=== PATIENT | male | born 1935 | race Caucasian/White ===

== ENCOUNTER → 2016-06-03 | Outpatient (CLI) | payer OTHER ==
--- NOTE | 2016-06-03 18:13 | DX ---
Chest, PA and Lateral History: Cough x3 weeks, evaluate for pneumonia COMPARISON: October 16, 2015 Findings: There is no focal infiltrate or consolidation. Chronic cardiomegaly with pulmonary venous h ypertension and curly B lines are stable. There is no alveolar pulmonary edema or pleural effusion fo rmation. Median sternotomy wires and CABG clips along with thoracolumbar fusion hardware are again pr esent and unchanged. The uppermost first and third median sternotomy wires are fractured. There is co ngenital fusion of the 2 vertebral bodies directly above the surgical fusion. There is stable degener ative change in the midthoracic spine above both these regions. There is chronic degenerative change of both shoulders, consistent with full-thickness rotator cuff tears. Impression: 1. No pneumonia. 2. Stable borderline compensated CHF.
== END ==
LOC: FIMAGING 15:25
PROVIDERS: ATTEND Internal Medicine Interventional Cardiology
DX: I50.9 Heart failure, unspecified (principal); I25.10 Atherosclerotic heart disease of native coronary artery without angina pectoris; J44.9 Chronic obstructive pulmonary disease, unspecified; E78.5 Hyperlipidemia, unspecified

== ENCOUNTER 2016-06-24 03:57 | Inpatient (IN) | payer OTHER ==
[2016-06-24] MEDS ORDERED: NS 500 ML IV ONE (04:03)
--- NOTE | 2016-06-24 04:10 | EDPHY ---
H & P Time Seen by Provider: 06/24/16 04:03 HPI/ROS: HPI Fatigue, dyspnea, near syncope. 81-year-old male by ambulance from home. Patient reports that he got up to go to the bathroom. Reports the bathroom is about 20-25 feet away from his bedroom. Reports he was walking down the [place] he felt very short of breath, weak and lightheaded. He did not lose consciousness. He did not go to the ground. He states that he feels better now. No other associated signs or symptoms. ROS: Constitutional: No fever, no chills. As above. Eyes: No discharge. No changes in vision. ENT: No sore throat. No nasal congestion or rhinorrhea. Respiratory: No cough. As above. Cardiac: No chest pain, no palpitations. Gastrointestinal: No abdominal pain, no vomiting, no diarrhea. Genitourinary: No hematuria. No dysuria or increased frequency with urination. Musculoskeletal: No back pain. No neck pain. No myalgias or arthralgias. Skin: No rashes. Neurological: No headache. No focal weakness or altered sensation. Past medical history: Triple bypass 3 years ago, he takes an aspirin daily. He denies a history of atrial fibrillation. Weather Observer is Dr. Rod Kemp , multiple lumbar back surgeries with lower extremity L5 radiculopathy, hypothyroidism, hyperlipidemia, questionable history of heart failure. He has recently been treated for an ongoing sinus infection. He is currently on Medrol for this as well as nasal steroids and Biaxin. He reports this is his 3rd round of Medrol for his sinus infection. He saw an ENT physician, Dr. Castellano within the last few days for his sinus infection. Primary care physician is Dr. Timmons. Social history: Lives with his . Ambulates with a cane. Physical Exam: General Appearance: Alert, no distress. This patient is responding to questions appropriately and in full sentences. This patient appears well- hydrated and well-nourished. Eyes: Pupils equal and round no pallor or injection. No lid edema, erythema or injection. Respiratory: There are no retractions, lungs are clear to auscultation with good air movement bilaterally. Midline sternotomy scar. Cardiovascular: Irregular, irregular tachycardia. No murmur. Gastrointestinal: Moderately obese habitus. Abdomen is soft and nontender, no masses, bowel sounds normal. No focal tenderness at McBurney's point. No Quezada sign. Neurological: Motor sensory function is grossly intact and at baseline. Cranial nerves are normal. Skin: Warm and dry, no rashes. Musculoskeletal: Neck is supple and nontender. No JVD Extremities are symmetrical. Brace on left ankle and foot for slap foot. Psychiatric: No agitation. No depression. Database: EKG: EKG time is 4:15 a.m.; EKG shows a underlying incomplete left bundle branch block with atrial fibrillation ventricular rate of 99. Appropriate discordance. The [place], QRS, QT intervals are within normal limits. Probable left ventricular hypertrophy. There are no ST-T wave changes indicative of ischemic or injury pattern. No evidence of right heart strain. This EKG was compared to a prior EKG from 07/07/2014. Same features of incomplete left bundle branch block but sinus rhythm. Interpreted by me. EKG time 5:21 a.m.; no change from prior. Imaging: Chest x-ray AP portable; sternotomy wires, spinal hardware, probable cardiomegaly, probable CHF versus chronic diffuse airway disease. Interpreted by me. Interpreted by me. CT angiogram of the chest; no pulmonary embolism. Mild underlying congestive heart failure. The great vessels are unremarkable. No other acute pathology. Results were discussed with staff radiologist Dr. Chico Son. Procedures: Emergency department course: IV placed per EMS. He was placed on a cardiac exercise specialist during my evaluation. He is currently on nasal cannula oxygen at 2 L. pulse oximetry on 2 L of nasal cannula oxygen is 97% He will be given 500 cc of IV normal saline. EKG and chest x-ray performed. 4:20 a.m., vital signs reviewed, monitor currently shows atrial fibrillation with ventricular rate of 98. Blood pressure 120/84. Pulse oximetry 97% on 2 L of nasal cannula oxygen. 4:50 a.m., patient re-evaluated. shelter monitor shows an irregular rhythm ventricular rate in the upper 80s to low 90s. Blood pressure 120/78. D-dimer and troponin elevated. Potassium elevated at 5.5. Patient has had 500 cc of IV normal saline. Patient will receive 40 mg of IV Lasix for mild hyperkalemia and CHF. Patient given 324 mg of chewed aspirin. No chest pain. IV fluids will be continued at 150 cc/hour while in the emergency department. Patient consented for CT angiogram of chest to evaluate for pulmonary embolism. Medical records reviewed. Outpatient troponin elevated at 0.120 on 06/03/2015. BMP has been gradually going up over the last several months. 5:10 a.m., patient has returned from CT. Resting comfortably at this time. Blood pressure currently 128/86. Atrial fibrillation still present on the monitor ventricular rate average of 90. Patient and his have no recollection of elevated troponin on June 03. 5:50 a.m., spoke with hospitalist, Dr. Ly. Case discussed with her in detail. She accepts the patient for admission. 6:05 a.m., results of CT scan and other diagnostic studies discussed with the patient and his . Dr. Malachi disla, admitting hospitalist, at the bedside. Results of CT scan and other diagnostic studies reviewed with her and the patient. Patient admitted to the hospitalist service in stable and improved condition. Differential Diagnosis: The differential diagnosis on this patient includes but is not limited to acute coronary syndrome, pulmonary embolism, arrhythmia, congestive heart failure, new onset atrial fibrillation. This represents a partial list of diagnoses considered. These considerations are based on history, physical exam, past history, reassessment and diagnostic testing. Smoking Status: Former smoker Constitutional: Initial Vital Signs Temperature (C) 36.2 C 06/24/16 04:05 Heart Rate 126 H 06/24/16 04:05 Respiratory Rate 22 H 06/24/16 04:05 Blood Pressure 137/102 H 06/24/16 04:05 O2 Sat (%) 92 06/24/16 04:05 O2 Delivery Mode Nasal Cannula O2 (L/minute) 2 Allergies/Adverse Reactions: No Known Allergies Allergy (Unverified 12/28/12 14:09) Home Medications: Medication Instructions Recorded Fluticasone Nasal [Flonase Nasal 2 sprays NASAL HS 12/28/12 [place]] Herbals/Supplements -Info Only 1 each PO AD 12/28/12 Thyroid [[place] Thyroid 60 MG (*)] 120 mg PO DAILY10 12/28/12 Ambien 06/24/16 Androderm 4 mg patch 06/24/16 Aspirin 81mg (*) 06/24/16 Atrovent Hfa (*) 06/24/16 Augmentin 875 MG TAB (*) 06/24/16 Gabapentin 06/24/16 Iodine 06/24/16 Nasogel Saline Nose Gel 06/24/16 Synthroid 50 mcg (*) 06/24/16 Ventolin Hfa Inhaler 06/24/16 Medical Decision Making - Data Points Laboratory Results: Laboratory Results 06/24/16 04:04 06/24/16 04:04 06/24/16 04:04 WBC 11.30 H 10^3/uL (3.80-9.50) RBC 4.78 10^6/uL (4.40-6.38) Hgb 16.7 g/dL (13.7-17.5) Hct 48.4 % (40.0-51.0) MCV 101.3 H fL (81.5-99.8) MCH 34.9 H pg (27.9-34.1) MCHC 34.5 g/dL (32.4-36.7) RDW 14.5 % (11.5-15.2) Plt Count 171 10^3/uL (150-400) MPV 10.8 fL (8.7-11.7) Neut % (Auto) 86.1 H % (39.3-74.2) Lymph % (Auto) 8.4 L % (15.0-45.0) [place] % (Auto) 4.3 L % (4.5-13.0) Eos % (Auto) 0.0 L % (0.6-7.6) Baso % (Auto) 0.2 L % (0.3-1.7) Nucleat RBC Rel Count 0.0 % (0.0-0.2) Absolute Neuts (auto) 9.73 H 10^3/uL (1.70-6.50) Absolute Lymphs (auto) 0.95 L 10^3/uL (1.00-3.00) Absolute Monos (auto) 0.49 10^3/uL (0.30-0.80) Absolute Eos (auto) 0.00 L 10^3/uL (0.03-0.40) Absolute Basos (auto) 0.02 10^3/uL (0.02-0.10) Absolute Nucleated RBC 0.00 10^3/uL (0-0.01) Immature Gran % 1.0 % (0.0-1.1) Immature Gran # 0.11 H 10^3/uL (0.00-0.10) PT 15.1 H SEC (12.0-15.0) INR 1.19 H (0.83-1.16) APTT 29.4 SEC (23.0-38.0) D-Dimer 1.63 H ug/mLFEU (0.00-0.50) Sodium 138 mEq/L (134-144) Potassium 5.5 H mEq/L (3.5-5.2) Chloride 105 mEq/L (97-110) Carbon Dioxide 20 L mEq/l (22-31) Anion Gap 13 mEq/L (8-16) BUN 41 H mg/dL (7-23) Creatinine 1.3 mg/dL (0.7-1.3) Estimated GFR 53 Glucose 164 H mg/dL (70-100) Calcium 9.5 mg/dL (8.5-10.4) Troponin I 0.132 H ng/mL (0-0.034) NT-Pro-B Natriuret Pep 8060 H pg/mL (0-450) TSH 3.040 uIU/mL (0.465-4.680) Free T4 1.02 ng/dL (0.59-2.19) Free T3 3.15 pg/mL (2.77-5.27) Medications Given: Discontinued Medications Aspirin (Aspirin) 324 mg PO EDNOW ONE Stop: 06/24/16 04:51 Last Admin: 06/24/16 05:16 Dose: 324 mg Furosemide (Lasix Injection) 40 mg IVP EDNOW ONE Stop: 06/24/16 04:51 Last Admin: 06/24/16 05:15 Dose: 40 mg Sodium Chloride (Ns) 500 mls @ 0 mls/hr IV ONCE ONE PRN Reason: As Directed Stop: 06/24/16 04:04 Last Admin: 06/24/16 04:37 Dose: 500 mls Departure - Departure Disposition: [facility] Inpatient Acute Clinical Impression: Atrial fibrillation with RVR, Near syncope, Hyperkalemia, Dyspnea, Congestive heart failure, New onset atrial fibrillation Condition: Fair
[2016-06-24 04:16] LABS: ABSOLUTE IMMATURE GRANULOCYTES 0.11 10^3/uL (0.00-0.10); ADD DIFF? NO; ADD MORPH? NO; ADD SCAN? NO; ATYPICAL LYMPHOCYTE FLAG 0 (0-99); FRAGMENT RBC FLAG 0 (0-99); HEMATOCRIT 48.4 % (40.0-51.0); HEMOGLOBIN 16.7 g/dL (13.7-17.5); LEFT SHIFT FLG 0 (0-99); LIPEMIA HEMOLYSIS FLAG 90 (0-99); MEAN CELL HEMOGLOBIN 34.9 pg (27.9-34.1); MEAN CELL HEMOGLOBIN CONCENTR. 34.5 g/dL (32.4-36.7); MEAN CELL VOLUME 101.3 fL (81.5-99.8); MEAN PLATELET VOLUME 10.8 fL (8.7-11.7); PLATELET CLUMPS FLAG 0 (0-99); PLATELET COUNT 171 10^3/uL (150-400); RED BLOOD CELL COUNT 4.78 10^6/uL (4.40-6.38); RED CELL DISTRIBUTION WIDTH 14.5 % (11.5-15.2)
[2016-06-24 04:25] LABS: INR 1.19 (0.83-1.16); PROTIME(PATIENT) 15.1 SEC (12.0-15.0)
[2016-06-24 04:30] LABS: ANION GAP 13 mEq/L (8-16); CALCIUM 9.5 mg/dL (8.5-10.4); CARBON DIOXIDE 20 mEq/l (22-31); CHLORIDE 105 mEq/L (97-110); CREATININE 1.3 mg/dL (0.7-1.3); GLOMERULAR FILTRATION RATE 53; GLUCOSE 164 mg/dL (70-100); POTASSIUM 5.5 mEq/L (3.5-5.2); SODIUM 138 mEq/L (134-144)
[2016-06-24 04:32] LABS: APTT 29.4 SEC (23.0-38.0)
[2016-06-24 04:42] LABS: TROPONIN I 0.132 ng/mL (0-0.034)
[2016-06-24] MEDS ORDERED: IOPAMIDOL (ISOVUE 370) 100 ML BTL IV ONE (04:42)
[2016-06-24] MEDS ORDERED: FUROSEMIDE 40 MG/4 ML VIAL ONE (04:44)
[2016-06-24] MEDS ORDERED: FUROSEMIDE 40 MG/4 ML VIAL IVP ONE (04:50)
[2016-06-24] MEDS ORDERED: ASPIRIN 81 MG CHEWABLE TAB PO ONE (04:50)
[2016-06-24] MEDS ORDERED: NS 1,000 ML IV SCH (05:00)
--- NOTE | 2016-06-24 05:23 | CPEKG ---
Heart Rate: 98 RR Interval: 612 QRSD Interval: 108 QT Interval: 404 QTC Interval: 516 QRS [place]: -46 T Wave [place]: 108 EKG Severity - ABNORMAL ECG - EKG Impression: ATRIAL FIBRILLATION EKG Impression: INCOMPLETE LEFT BUNDLE BRANCH BLOCK EKG Impression: PROBABLE LVH WITH SECONDARY REPOL ABNRM EKG Impression: PROLONGED QT INTERVAL Electronically Signed By: Cintia Lopez 24-Jun-2016 06:16:13
--- NOTE | 2016-06-24 05:32 | CPEKG ---
Heart Rate: 99 RR Interval: 606 QRSD Interval: 110 QT Interval: 384 QTC Interval: 493 QRS [place]: -50 T Wave [place]: 104 EKG Severity - ABNORMAL ECG - EKG Impression: ATRIAL FIBRILLATION EKG Impression: INCOMPLETE LEFT BUNDLE BRANCH BLOCK EKG Impression: LVH WITH SECONDARY REPOLARIZATION ABNORMALITY EKG Impression: PROBABLE INFERIOR INFARCT, OLD Electronically Signed By: Cintia Lopez 24-Jun-2016 06:16:13
[2016-06-24] MEDS ORDERED: ACETAMINOPHEN 325 MG TAB PO PRN (06:13)
[2016-06-24] MEDS ORDERED: ONDANSETRON 4 MG/2 ML VIAL IVP PRN (06:13)
[2016-06-24] MEDS ORDERED: IPRATROPIUM/ALBUTEROL 3 ML DEYVIAL IH PRN (06:13)
[2016-06-24] MEDS ORDERED: ONDANSETRON DISINTEGRATING 4 MG TAB PO PRN (06:13)
[2016-06-24] MEDS ORDERED: HYDROCODONE/APAP 5/325 TAB PO PRN (06:13)
--- NOTE | 2016-06-24 06:23 | PDGENHP ---
History and Physical - Chief Complaint near syncope, shortness of breath - History of Present Illness Patient is an 22-ocse-ida-male with h/o CAD s/p CABG(x 3 vessel, 2013), osteoarthritis who presents to the ED with complaint of dyspnea on exertion. Since mid/late May, patient has been dealing with a sinus infection, associated with a productive cough and reactive airway disease, for which he is currently on Clarithromycin and had just completed a medrol dose pack. He feels these has been improving recently, however, recently he has felt acutely worse shortness of breath and generalized fatigue. This evening, he had awoken from sleep to use the bathroom and with walking from his bedroom to the bathroom he reports feeling severely short of breath and dizzy/lightheaded. He did not lose consciousness and denies any associated chest pain, palpitations or nausea. Given the severity of his symptoms, he decided to call EMS. Over the past week he reports several episodes similar to tonight's symptoms, feeling extreme fatigue and shortness of breath with minimal exertion, which is an abrupt change from his baseline exercise tolerance. He does report one isolated fever 2 days ago, but this has not recurred since. He also denies any headache, abd pain, nausea/vomiting/diarrhea or urinary symptoms. On arrival to the ED, patient was afebrile, but tachycardic, with stable O2 and BP. EKG revealed afib without obvious ischemia. Labs revealed mild leukocytosis , indeterminantly elevated troponin, elevated BNP. D-dimer was positive, so CT angio chest was obtained to rule out PE. Study was negative for pulmonary embolism, but showed mild pulmonary edema. He was then admitted to the hospitalist service for further management. History Information - Allergies/Home Medication List Allergies/Adverse Reactions: No Known Allergies Allergy (Unverified 12/28/12 14:09) Home Medications: Fluticasone Nasal [Flonase Nasal [place]] 2 sprays NASAL HS 12/28/12 [Last Taken 07/07/14 08:30] Herbals/Supplements -Info Only 1 each PO AD 12/28/12 [Last Taken 2 Weeks Ago] Thyroid [[place] Thyroid 60 MG (*)] 120 mg PO DAILY10 12/28/12 [Last Taken ] Ambien 06/24/16 [Last Taken Unknown] Androderm 4 mg patch 06/24/16 [Last Taken Unknown] Aspirin 81mg (*) 06/24/16 [Last Taken Unknown] Atrovent Hfa (*) 06/24/16 [Last Taken Unknown] Augmentin 875 MG TAB (*) 06/24/16 [Last Taken Unknown] Gabapentin 06/24/16 [Last Taken Unknown] Iodine 06/24/16 [Last Taken Unknown] Nasogel Saline Nose Gel 06/24/16 [Last Taken Unknown] Synthroid 50 mcg (*) 06/24/16 [Last Taken Unknown] Ventolin Hfa Inhaler 06/24/16 [Last Taken Unknown] I have personally reviewed and updated: family history, medical history, social history, surgical history - Past Medical History Additional medical history: CAD s/p CABG x 3 vessels (2012, no pci since, follows with Dr. Kemp). Hypothyroidism. osteoarthritis. degenerative disease disease with peripheral neuropathy and L foot drop - Surgical History Additional surgical history: CABG. multiple lumbar spinal surgeries. multiple orthopedic surgeries - Family History Additional family history: F: CHF, CAD, in 60s - Social History Smoking Status: Former smoker (remote smoking history, quit >35 years ago) Alcohol Use: Occasionally (1 martini nightly) Drug Use: None Additional social history: Patient lives with his , walks with crutch due to L foot drop. 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 Review of Systems ROS: 10pt was reviewed & negative except for what was stated in HPI & below Physical Exam Temp Pulse Resp BP Pulse Ox 36.2 C 114 H 20 126/88 H 96 06/24/16 04:05 06/24/16 05:10 06/24/16 05:10 06/24/16 05:10 06/24/16 05:10 Constitutional: no apparent distress, appears nourished, not in pain Eyes: PERRL, anicteric sclera, EOMI Ears, Nose, Mouth, Throat: moist mucous membranes, hearing normal, ears appear normal, no oral mucosal ulcers Cardiovascular: no murmur, rub, or gallop, irregularly irregular, pulses symmetric bilaterally, No JVD, No edema Peripheral Pulses: 2+: dorsalis-pedis (R), dorsalis-pedis (L) Respiratory: no respiratory distress, no rales or rhonchi, clear to auscultation Gastrointestinal: normoactive bowel sounds, soft, non-tender abdomen, no palpable masses, No guarding, No rebound Genitourinary: no bladder fullness, no bladder tenderness Skin: warm, normal color, no rashes or abrasions, no fluctuance, No mottled Musculoskeletal: no muscle tenderness, normal joint ROM, no joint effusions, other (L foot drop, lower extremities in ankle braces) Neurologic: AAOx3, sensation intact bilaterally, CN II-XII Intact, No weakness, No numbness, No facial droop Psychiatric: interacting appropriately, not anxious, not encephalopathic, thought process linear Lab Data & Imaging Review 06/24/16 04:04 06/24/16 04:04 WBC 11.30 10^3/uL (3.80-9.50) H 06/24/16 04:04 RBC 4.78 10^6/uL (4.40-6.38) 06/24/16 04:04 Hgb 16.7 g/dL (13.7-17.5) 06/24/16 04:04 Hct 48.4 % (40.0-51.0) 06/24/16 04:04 MCV 101.3 fL (81.5-99.8) H 06/24/16 04:04 MCH 34.9 pg (27.9-34.1) H 06/24/16 04:04 MCHC 34.5 g/dL (32.4-36.7) 06/24/16 04:04 RDW 14.5 % (11.5-15.2) 06/24/16 04:04 Plt Count 171 10^3/uL (150-400) 06/24/16 04:04 MPV 10.8 fL (8.7-11.7) 06/24/16 04:04 Neut % (Auto) 86.1 % (39.3-74.2) H 06/24/16 04:04 Lymph % (Auto) 8.4 % (15.0-45.0) L 06/24/16 04:04 [place] % (Auto) 4.3 % (4.5-13.0) L 06/24/16 04:04 Eos % (Auto) 0.0 % (0.6-7.6) L 06/24/16 04:04 Baso % (Auto) 0.2 % (0.3-1.7) L 06/24/16 04:04 Nucleat RBC Rel Count 0.0 % (0.0-0.2) 06/24/16 04:04 Absolute Neuts (auto) 9.73 10^3/uL (1.70-6.50) H 06/24/16 04:04 Absolute Lymphs (auto) 0.95 10^3/uL (1.00-3.00) L 06/24/16 04:04 Absolute Monos (auto) 0.49 10^3/uL (0.30-0.80) 06/24/16 04:04 Absolute Eos (auto) 0.00 10^3/uL (0.03-0.40) L 06/24/16 04:04 Absolute Basos (auto) 0.02 10^3/uL (0.02-0.10) 06/24/16 04:04 Absolute Nucleated RBC 0.00 10^3/uL (0-0.01) 06/24/16 04:04 Immature Gran % 1.0 % (0.0-1.1) 06/24/16 04:04 Immature Gran # 0.11 10^3/uL (0.00-0.10) H 06/24/16 04:04 PT 15.1 SEC (12.0-15.0) H 06/24/16 04:04 INR 1.19 (0.83-1.16) H 06/24/16 04:04 APTT 29.4 SEC (23.0-38.0) 06/24/16 04:04 D-Dimer 1.63 ug/mLFEU (0.00-0.50) H 06/24/16 04:04 Sodium 138 mEq/L (134-144) 06/24/16 04:04 Potassium 5.5 mEq/L (3.5-5.2) H 06/24/16 04:04 Chloride 105 mEq/L (97-110) 06/24/16 04:04 Carbon Dioxide 20 mEq/l (22-31) L 06/24/16 04:04 Anion Gap 13 mEq/L (8-16) 06/24/16 04:04 BUN 41 mg/dL (7-23) H 06/24/16 04:04 Creatinine 1.3 mg/dL (0.7-1.3) 06/24/16 04:04 Estimated GFR 53 06/24/16 04:04 Glucose 164 mg/dL (70-100) H 06/24/16 04:04 Calcium 9.5 mg/dL (8.5-10.4) 06/24/16 04:04 Troponin I 0.132 ng/mL (0-0.034) H 06/24/16 04:04 NT-Pro-B Natriuret Pep 8060 pg/mL (0-450) H 06/24/16 04:04 TSH 3.040 uIU/mL (0.465-4.680) 06/24/16 04:04 Free T4 1.02 ng/dL (0.59-2.19) 06/24/16 04:04 Free T3 3.15 pg/mL (2.77-5.27) 06/24/16 04:04 Visualized and Interpreted Chest x-ray results: Yes Chest X-Ray results: other (cardiomegaly, increased vascular congestion) Visualized and Interpreted imaging results: Yes Interpretation: CT angio chest: no acute pulm embolism, cardiomegaly and pulmonary edema without effusion Visualized and Interpreted EKG results: Yes EKG additional interpertation: afib at 98 bpm, prolonged QTc, no obvious st/t wave changes Assessment & Plan Assessment: Patient is an 81/M with h/o CAD s/p CABG, hypothyroidism and osteoarthritis who presents to the ED with complaints of acute dyspnea on exertion and a near syncopal episode. ED work up reveals new onset atrial fibrillation and mild fluid overload. Plan: # dyspnea on exertion Patient reports an acute change in his exercise tolerance over the past 1-2 weeks, with this evening's episode significantly worse and associated with a near syncopal event. ED w/u reveals elevated BNP and troponin, evidence of pulmonary edema, concerning for new onset CHF (pt denies previous diagnosis of this). EKG also reveals new onset afib. Recent URI/sinus infection requiring steroid therapy may be a provoking factor. CT angio has ruled out pulmonary embolism. Will r/o acs, cont to monitor HR and rate control, check TTE and provide IV diuresis. Will also consult cardiology. # new onset afib Patient initially in afib with rvr to the 110-120 range, HR has improved over ED course without intervention. Patient denies any previous history of afib. CHADSVasc warrants systemic anticoagulation, will initiate lovenox now and consider starting b-chichi for rate control. If no need for cardiac intervention, can transition to NOAC. # elevated troponin Patient denies any chest pain associated with his dyspnea, troponin elevation likely related to demand ischemia in setting of tachycardia. No obvious ischemia on EKG. Will cont to trend troponin and EKGs, cont aspirin and f/u cardiology consult. # hyperkalemia, elevated creatinine Mildly elevated K, no T wave abnormalities on EKG. Patient was given IVF in the ED, will hold further fluids given likely acute chf and will cont to monitor BMP. # recent URI with reactive airway disease Respiratory status stable on presentation, however, pt does report continued cough. CT/CXR does not reveal evidence of pneumonia. Will continue po antibiotic pt was prescribed by PMD to complete course. Duoneb prn. # hypothyroidism TSH and TFTs are wnl. Will cont home synthroid dose. # chronic osteoarthritis, degenerative disc disease and peripheral neuropathy At baseline, will cont home meds. # dispo: will likely require inpatient admission for > 2 MN for presumed new onset chf with acute fluid overload requiring IV diuresis #gen: cardiac diet DVT ppx: on systemic lovenox Full code
--- NOTE | 2016-06-24 08:17 | CPEKG ---
Heart Rate: 101 RR Interval: 594 QRSD Interval: 108 QT Interval: 380 QTC Interval: 493 QRS [place]: -50 T Wave [place]: 104 EKG Severity - ABNORMAL ECG - EKG Impression: ATRIAL FIBRILLATION EKG Impression: INCOMPLETE LEFT BUNDLE BRANCH BLOCK EKG Impression: LEFT VENTRICULAR HYPERTROPHY EKG Impression: PROBABLE INFERIOR INFARCT, OLD EKG Impression: BORDERLINE PROLONGED QT INTERVAL EKG Impression: UNCHANGED IN COMPARISON TO PRIOR Electronically Signed By: Allen Charlton 26-Jun-2016 08:33:28
[2016-06-24] MEDS: FUROSEMIDE 40 MG/4 ML VIAL IVP SCH ×2 (08:53→14:35)
--- NOTE | 2016-06-24 09:12 | CT ---
CT Pulmonary Angiography History: Shortness of breath, elevated D-dimer. Comparison: PA and lateral chest June 03, 2016. Technique: Axial contrast-enhanced images were obtained through the chest following the uneventful in travenous administration of 75 mL Isovue-370. Creatinine is 1.3. Multiplanar reformations were perfo rmed through the pulmonary arteries. Dose reduction techniques were utilized. Findings: Visualization of subsegmental vessels is limited by respiratory motion. There is no visible pulmonary embolus. There is mild diffuse peribronchial thickening with basilar atelectasis. Mild int erlobular septal thickening is noted. Bullae versus less likely honeycombing is noted in the anterior right middle lobe. There is a 6 mm noncalcified lingular nodule adjacent to the major fissure (serie s 7, image 127). There are no pleural effusions. Right lower lobe granuloma is present. There is mode rate cardiomegaly. Three-vessel coronary artery atherosclerosis is present with CABG changes. Mild at herosclerosis is present in the ascending aorta, which is ectatic, measuring 3.7 cm, without dissecti on. Reflux of contrast into the hepatic veins suggests poor cardiac output. There are numerous promin ent mediastinal and hilar lymph nodes, including a reference 1.8 x 1.3 cm prevascular node (series 6, image 65). Degenerative change is present in the spine. There is anterior fusion of T8 and T9. Thora columbar fusion hardware is incompletely visualized. Fracture of the superiormost sternotomy wire is again noted. Impression: 1. No visible pulmonary embolus. 2. Cardiomegaly with mild fluid overload without mookie failure. 3. Nonspecific mildly prominent lymph nodes, measuring up to 1.3 cm. Short-term follow-up CT is recom mended in 3 months. 4. Noncalcified 6 mm lingular nodule. If the patient is a nonsmoker with no history of malignancy, un enhanced low dose chest CT is recommended for followup in 12 months. If the patient is a smoker or h as a history of malignancy, follow-up CT is recommended in 6-12 months, then at 18-24 months from the initial study if no change. 5. Additional findings as above. Findings discussed with Dr. Cintia Lopez today at 547 hours. The preliminary and final report s were concordant.
[2016-06-24] MEDS: CARVEDILOL 3.125 MG TAB PO SCH ×2 (09:23→18:44)
--- NOTE | 2016-06-24 09:30 | ECHO ---
[id number] + + [address] : : [place] [address] : : [phone] + + Adult Echocardiographic Report + -------+ :Name: ROSE MARIE HOUSE DStudy Date: 06/24/2016 07:59 AM : : Hospital Admission Number: [id number] Locati on: 201: :: 1935 Gender: Male Height: 68 in : :Age: 81 yrs Race: WH,White Weight: 160 lb : :Reason For Study: Eval LV Fx : : BSA: 1.9 meter s2 : :History: SOB, New onset of Atrial Fibrillation : + -------+ MMode/2D Measurements & Calculations IVSd: 1.2 cm LVIDd: 4.9 cm FS: 5.8 % MV Diam: 3.1 cm LVPWd: 1.3 cm LVIDs: 4.6 cm EDV(Teich): 114.2 ml ESV(Teich): 99.3 ml EF(Teich): 13.0 % Ao root diam: LVOT diam: 1.9 cmLVLd ap4: 7.9 cm SV(MOD-sp4): 3.3 cm LVOT area: EDV(MOD-sp4): 14.0 ml ACS: 1.8 cm 2.8 cm2 103.0 ml LVLs ap4: 8.2 cm ESV(MOD-sp4): 89.0 ml EF(MOD-sp4): 13.6 % Normal Measurement Values: + + :LVIDd (3.5-5.7cm) IVSd (0.6-1.1cm) LVPWd (0.6-1.1cm) Aortic Root (2.0-3.7cm)Left Atrium (1.5-4.0cm): :LV Vol(d) (76-115ml) LV Vol(s) (29-48ml) Ejec Fraction (50-65%)PV Cristhian (0.6- 1.2m/s) TV Cristhian (0.4-1.0m/s) : :MV E Cristhian (0.8-1.0m/s)MV A Cristhian (0.3-1.0m/s)LVOT Cristhian (0.7-1.2m/s) Asc Ao Cristhian ( 0.9-1.8m/s) : + + Doppler Measurements & Calculations MV E max cristhian: MV area (1 diam): Ao V2 max: LV V1 max: 115.5 cm/sec 7.7 cm2 73.9 cm/sec 52.3 cm/sec MV Flow area Ao max PG: LV V1 max P.2 mmHg 1.1 mmHg (1diam): 7.7 cm2 Ao mean PG: LV V1 mean P.8 mmHg 0.59 mmHg Ao V2 mean: LV V1 mean: 62.2 cm/sec 34.8 cm/sec Ao V2 VTI: LV V1 VTI: 8.8 cm 13.1 cm ZHANNA(I,D): 1.9 cm2 ZHANNA(V,D): 2.0 cm2 MR max cristhian: SV(LVOT): 25.0 ml PA V2 max: TR max cristhian: 427.6 cm/sec 54.7 cm/sec 297.7 cm/sec MR max PG: PA max PG: TR max P.1 mmHg 1.2 mmHg 35.4 mmHg RAP systole: 5.0 mmHg RVSP(TR): 40.4 mmHg Left Ventricle The left ventricle is normal in size. There is normal left ventricular wall thickness. Ejection Fraction = 15%. There is global left ventricular hypokinesis with inferior akinesis. Right Ventricle The right ventricle is normal in size and function. Atria The left atrium is severely dilated. The right atrium is moderate to severely dilated. Mitral Valve Calcified mitral apparatus. There is no mitral valve stenosis. There is moderate to severe mitral regurgitation. Tricuspid Valve Right ventricular systolic pressure is 41mmHg. There is mild tricuspid regurgitation. Aortic Valve The aortic valve is not well visualized. There is no aortic stenosis. There is no aortic insufficiency. Pulmonic Valve The pulmonic valve is not well visualized. There is no pulmonic valvular regurgitation. Great Vessels The aortic root is normal size. Pericardium/Pleural There is no pericardial effusion. Conclusion A complete two-dimensional transthoracic echocardiogram was performed (2D, M-mode, Doppler and color flow Doppler). 1. The left ventricle is normal in size. There is global left ventricular hypokinesis with inferior akinesis. The Ejection Fraction = 15%. 2. There is biatrial enlargement. 3. Calcified mitral apparatus with moderate to severe mitral regurgitation. 4. The aortic valve is not well visualized. There is no aortic stenosis. There is no aortic insufficiency. 5. Right ventricular systolic pressure is 41mmHg. 6. Compared to the 12/30/12 study. The LVEF has decreased from 65% to 15%. The degree of MR has increased from moderate to moderate/severe. Final Reading Physician: Allen Mendoza MD electronically signed on 06/24/2016 09:28 AM Ordering Physician: Mojgan Ly Performed By: Keyur Umanzor, CS
--- NOTE | 2016-06-24 09:42 | DX ---
Portable AP Upright Chest, 4:14 AM on June 24, 2016 Clinical History: 81-year-old male in the ED with chest pain Comparison Study: Chest, dated 06/03/2016, at 3:44 PM. Findings: Again noted are median sternotomy wires and mediastinal surgical clips, consistent with marcus or CABG. The 3 most cephalad wires are partially discontinuous. Telemetry monitoring lead lines are p resent. Thoracolumbar arthrodesis hardware is seen. The cardiac silhouette remains enlarged, and ther e is peribronchial thickening and mild pulmonary venous hypertension. There is no mookie cardiogenic p ulmonary edema, focal infiltrate, or pleural effusion. The patient has taken a slightly more shallow inspiratory effort than on the previous study. There is mural atherosclerotic calcification of the ao rtic knob. There is marked narrowing of the acromiohumeral distances bilaterally, consistent with chr onic rotator cuff pathology. Impression: Sequela of prior CABG with cardiomegaly and mild pulmonary vascular congestion. At Dr. Lopez's request, contrast-enhanced CT scan was subsequently performed, and that report beryl pina also be referenced.
[2016-06-24 09:55] LABS: COLOR YELLOW; LEUKOCYTE ESTERASE,URINE NEGATIVE (NEGATIVE); NITRITE,URINE NEGATIVE (NEGATIVE)
--- NOTE | 2016-06-24 10:05 | HOSPPROG ---
Hospitalist Progress Note Assessment/Plan: total of greater than 45 minutes was spent at the bedside in care coordination with this patient today in addition to the time spent by Dr. Arguelles DIAGNOSIS: # ACUTE SYSTOLIC CONGESTIVE HEART FAILURE # ACUTE ATRIAL FIBRILLATION WITH RAPID RESPONSE # NEW CARDIOMYOPATHY WITH SEVERELY REDUCED LV EF # HISTORY OF CORONARY ARTERY DISEASE AND BYPASS SURGERY # RECENT RESPIRATORY INFECTION TREATED WITH STEROID AND ANTIBIOTIC # HISTORY OF HYPOTHYROIDISM He is responding well to diuresis and currently not in distress. With them marked change in his echocardiogram will need to assess for the cause of his cardiomyopathy. He is apparently 4 years out from bypass surgery may need angiography. Would consider the possibility of thyroid, viral, or other causes of cardiomyopathy as well. Greater than 40 minute spent at bedside with patient and care coordination today in addition to the time spent by Dr. Arguelles PLANS: -continue diuresis -I reviewed the case with Dr. Kishor Rowe who will be looking at the echocardiogram -is anticipated the patient will likely need coronary angiography -Will recheck TSH to make sure his thyroid is currently adequately treated SUBJECTIVE: Feel significantly better after diuresis started in the ER today. Currently no chest pain or palpitations and breathing is easier. OBJECTIVE Vitals reviewed: Stable now with normal heart rates playground monitor: Atrial flutter with 1 to 4 conduction on my review I&O: > 1200 so far today Exam: alert oriented skin warm dry color ok resps not labored lungs minimal rales heart regular abd soft nondistended nontender, bowel sounds present limbs warm, no edema iv site ok Echocardiogram: has not yet been officially read but the estimate from the hemodialysis lab technician is that the ejection fraction is 10%. He had an echocardiogram to 10 months ago with ejection fraction in the 60s. Objective: Vital Signs Temp Pulse Resp BP Pulse Ox 36.3 C 72 19 106/78 96 06/24/16 07:33 06/24/16 07:33 06/24/16 07:33 06/24/16 07:33 06/24/16 07:33 06/23/16 06/24/16 06/25/16 06:59 06:59 06:59 Intake Total 730 Output Total 800 1200 Balance -70 -1200 PT 15.1 SEC (12.0-15.0) H 06/24/16 04:04 INR 1.19 (0.83-1.16) H 06/24/16 04:04 ICD10 Worksheet Patient Problems: Problems Problem Status Diagnosed Atrial fibrillation with RVR Acute Congestive cardiac failure Acute Dyspnea Acute Hyperkalemia Acute Near syncope Acute New onset atrial fibrillation Acute Lumbar stenosis Acute
[2016-06-24 10:23] LABS: ANION GAP 12 mEq/L (8-16); CALCIUM 8.7 mg/dL (8.5-10.4); CARBON DIOXIDE 23 mEq/l (22-31); CHLORIDE 105 mEq/L (97-110); CREATININE 1.4 mg/dL (0.7-1.3); GLOMERULAR FILTRATION RATE 49; GLUCOSE 141 mg/dL (70-100); POTASSIUM 4.7 mEq/L (3.5-5.2); SODIUM 140 mEq/L (134-144)
[2016-06-24 10:36] LABS: TROPONIN I 0.145 ng/mL (0-0.034)
[2016-06-24 10:39] LABS: CREATINE KINASE-MB FRACTION 5.83 ng/mL (0-3.19)
[2016-06-24 10:47] LABS: CK-MB INTERPRETATION NEGATIVE (NEGATIVE)
[2016-06-24] MEDS: ENOXAPARIN 80 MG/0.8 ML SYR SC SCH ×2 (11:36→20:22)
[2016-06-24] MEDS ORDERED: PROTOCOL MAGNESIUM 1 DOSE IV PRN (13:32)
[2016-06-24] MEDS ORDERED: PROTOCOL POTASSIUM 1 DOSE MISC PRN (13:32)
[2016-06-24] MEDS ORDERED: ALBUTEROL 60 PUFFS/8 GM MDI IH PRN (13:59)
[2016-06-24] MEDS ORDERED: GABAPENTIN 300 MG CAP PO PRN (13:59)
[2016-06-24] MEDS ORDERED: IPRATROPIUM HFA INHALER IH PRN (13:59)
[2016-06-24] MEDS ORDERED: *MD ORDERING ONLY-MEDROL DOSE PAK PO SCH (14:00)
[2016-06-24] MEDS: THYROID 60 MG TAB PO SCH (15:07)
[2016-06-24] MEDS: LEVOTHYROXINE 50 MCG TAB PO SCH (15:07)
[2016-06-24] MEDS: methylPREDNISolone 4 MG TAB PO SCH ×2 (15:26→18:46)
[2016-06-24] MEDS: FLUTICASONE NASAL 120 SPRAYS/16 GM MDI EACHNARE SCH (16:17)
--- NOTE | 2016-06-24 16:25 | GCON ---
[f rep st] CONSULTATION CARDIOLOGY CONSULTATION DATE OF CONSULTATION: 06/24/2016 REASON FOR CONSULTATION: Shortness of breath with exertion, congestive heart failure on chest x-ray and new onset of atrial fibrillation. HISTORY OF PRESENT ILLNESS: The patient is an 81-year-old male with significant history of CAD, CABG x3 vessels (ALAS to the LAD, SVG to a diagonal , SVG to circumflex), dyslipidemia, hypothyroidism, and osteoarthritis. He reports since mid May ongoing upper respiratory infection, reporting may undergoing CTA of the head and finding that he had a sinus infection. He has been treated in the last month with 3 dosages of Medrol. He has also been on antibiotic therapy. He reports since the beginning of his upper respiratory infection, he has been feeling somewhat short of breath, reporting that it had worsened over the last 3 days, noticing that he has been severely short of breath with walking to the bathroom with dizziness and lightheadedness. He denies any chest pain or pressure. He describes prior to his CABG jaw pressure, which he reports he has had none since his bypass surgery. He was brought to the emergency department this morning and found to be in atrial fibrillation with heart rates up to 126 BPM. He was afebrile. Initial laboratory studies noted to have elevated BNP at 8060, troponin mildly elevated at 0.132. Chest x-ray suggested congestive heart failure. The patient did undergo CTA of the chest showing no visible pulmonary embolisms. He is noted from his previous office studies, of undergoing echocardiogram on August 15, 2015 , in which he was noted to have a normal LV systolic function with no regional wall motion abnormalities, moderate LVH, EF of 60%, diastolic dysfunction. The LA was moderately dilated, RA was mildly dilated, RVSP was elevated at 44 mmHg. In the emergency department, he was given IV Lasix and transferred up to the floor. He has diuresed some, reporting improvement in symptoms at the current time of my examination. He also underwent an echocardiogram this a.m. showing severely reduced ejection fraction with global hypokinesis, with EF of 15% with bilateral atrial enlargement, RVSP of 41 mmHg. Besides upper respiratory infection, he had been in his usual state of health. Denies having any fevers, chills or night sweats. Denies any bleeding issues. He does live a somewhat sedentary lifestyle due to osteoarthritis with previous back surgery. Electrocardiogram done in the emergency department showed atrial fibrillation with incomplete left bundle branch block, inverted T-waves in lateral leads, with Q-waves in lead 3 and AVF. In comparison, besides atrial fibrillation, no significant change from previous electrocardiogram done earlier this year. PAST MEDICAL HISTORY: 1. Coronary artery disease. 2. Hyperlipidemia. 3. Hypothyroidism. 4. Osteoarthritis. 5. Degenerative disc disease, with peripheral neuropathy of the left foot. 6. Sinus infection. PAST SURGICAL HISTORY: 1. Includes CABG x4 vessel in 2013 with ALAS to the LAD, SVG to the diagonal, SVG to circumflex. 2. Multiple lumbar spine surgeries. 3. Multiple orthopedic surgeries. FAMILY HISTORY: CAD, heart failure. SOCIAL HISTORY: Former smoker, occasional alcohol use. 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 Sedentary lifestyle due to multiple lumbar surgeries and peripheral neuropathy. Denies any illicit drug use. ALLERGIES: Patient has no known drug allergies. HOME MEDICATIONS: Include: 1. Atrovent 2 puffs inhaled four times daily p.r.n. 2. Ambien 5 mg p.o. at bedtime. 3. Gabapentin 300 mg p.o. daily p.r.n. 4. Albuterol 2 puffs inhaled p.r.n. 5. Lodine 400 mg p.o. b.i.d. 6. Flonase 2 sprays to each nostril daily. 7. Aspirin 81 mg daily. 8. Androderm 2 mg patch. 9. Biaxin 500 mg p.o. daily. 10. Methylprednisolone Dosepak. 11. Thyroid 120 mg p.o. daily. 12. Synthroid 50 mcg p.o. daily. 13. The patient reports he has been on simvastatin for hyperlipidemia, which he reports has been asked to hold since starting Biaxin. REVIEW OF SYSTEMS: A 10-point review of systems was done, all negative, except as mentioned above. PHYSICAL EXAMINATION: GENERAL APPEARANCE: Medium-built, well-groomed, male. He is alert and orientated to person, place, time, and situation. CURRENT VITAL SIGNS: Blood pressure of 99/71, heart rate is 81, atrial fibrillation on the monitor, respirations are 20, saturating 97% on 2 L nasal cannula, temperature 36.3 degrees Celsius. HEENT: Head is normocephalic. Lips and tongue are pink and moist with no signs of cyanosis. Conjunctivae pink. NECK: Trachea is midline, +2 carotid pulses bilateral, no auscultated bruits. Patient noted to have 7 to 8 cm of JVD above sternal notch at a 45- degree angle. CARDIAC: Regular rate, irregular rhythm, S1, S2. No gallops, rubs or murmurs, no S3. LUNGS: Noted rales bilateral bases. No rhonchi or wheezing noted. ABDOMEN: Soft, nontender, bowel sounds x4 quadrants. No organomegaly. No palpable masses. SKIN: [place], warm, dry. No cyanosis, no clubbing, no peripheral edema. VASCULAR: +2 carotids bilateral, +2 radials bilateral, +1 posterior tibial pulses bilateral. Sternotomy incision healed. NEURO: Cranial nerves 2-12 grossly intact. LABORATORY DATA: Drawn in the ED this morning show WBC of 11.30, hemoglobin of 16.7, hematocrit 48.4, platelet count 171. INR 1.19. D-dimer was positive at 1.63. Sodium this morning on the floor was 140, potassium 4.7, chloride 105, CO2 of 23, BUN 40, creatinine 1.4, glucose 141, calcium 8.7, magnesium 2.4, CK was 198, CK-MB fraction was 5.83. CPK MB percentage was 2.93. Troponin in the emergency department was 0.132. Repeated troponin this morning was 0.145. ProBNP was 8060, TSH 3.040 with free T4 of 1.02, free T3 of 3.15. The patient did have a UA which was negative, except positive for uro bili at 2.0. Electrocardiogram done at 4:45 a.m. this morning shows atrial fibrillation with incomplete left bundle branch block, probable LVH. Chest x-ray as mentioned above. CTA of the chest as mentioned above. Echocardiogram as mentioned above. ASSESSMENT AND PLAN: 1. Atrial fibrillation. New onset, patient noted to be on admission with heart rates up to 120 beats per minute, uncertain how long. He denies of any palpitations. Currently, has been started on carvedilol with adequate rate control with heart rate in the 80s. At this time, due to his recent reduced ejection fraction, he will probably need a cardiac catheterization soon. He does have a CHADS-VASc score of 4. We will plan for him to be bridged for anticoagulation with Lovenox therapy so it may be discontinued if necessary for cardiac catheterization. 2. Cardiac cardiomyopathy with systolic heart failure, [place] Association class III-IV symptoms. Patient reporting symptoms worsened and has been short of breath since early May, feeling this was an upper respiratory infection, worsening in the last 3 days. Echocardiogram done today shows ejection fraction of 15%, which is significantly reduced from echocardiogram done in August 2015 in which ejection fraction was 60%. Noted global cardiomyopathy. Patient with noted mildly elevated troponin, question potential causes for this could be atrial fibrillation with rapid ventricular response versus viral infection versus cardiac ischemia. As mentioned above, the patient has been started on low -dose carvedilol. We will plan on diuresing him, and potentially adding an SENDY inhibitor to his medication regime as he tolerates it. We will plan after diuresing, as long as he remains stable, has no symptoms such of chest pain, and troponin remains unchanged, consideration of cardiac catheterization in a day or 2 for further evaluation. 3. Coronary artery disease. Patient with known history of CAD with previous CABG, denies of any chest pain, but has continued shortness of breath, noticed significantly reduced ejection fraction on most recent echocardiogram, with ejection fraction of 15%, showing global cardiomyopathy, mildly elevated troponin. Patient denies any symptoms that he had prior to his bypass of jaw pain that he experienced for his exertional angina. We will plan on monitoring troponin levels; if they remain unchanged, consideration of doing cardiac catheterization in a day or 2. If elevated, then consideration of further evaluation with cardiac catheterization more urgently. Continue him on current aspirin therapy. He has been started on beta chichi as mentioned above. 4. Hyperlipidemia. Patient with noted history of hyperlipidemia, currently off statin therapy due to being placed on Biaxin for a sinus infection. We will reconsider starting once completing medication therapy or consider switching over to a different statin with less potential interactions. We will have him get a fasting lipid panel in the a.m. 5. Hypothyroidism. TSH, free T3 and free T4 within normal limits. Continue on current medications at this time. 6. Sinus infection. Patient is being followed by Internal Medicine. I have spoken to Dr. Hancock who is evaluating his need for antibiotic. 7. Renal insufficiency: Patient noted to have elevated creatinine at 1.4. Will monitor closely with the addition of IV diuretics to his medication regimen. Thank you for this consultation. We will be glad to follow along with you. /[id number]/MODL MTDD
[2016-06-24 16:51] LABS: MAGNESIUM 2.2 mg/dL (1.6-2.3); POTASSIUM 4.6 mEq/L (3.5-5.2)
[2016-06-24 17:04] LABS: TROPONIN I 0.131 ng/mL (0-0.034)
[2016-06-24] MEDS: TESTOSTERONE 2 MG TD SCH (20:32)
[2016-06-24] MEDS ORDERED: ASPIRIN EC 81 MG TAB PO SCH (21:00)
[2016-06-24] MEDS ORDERED: methylPREDNISolone 4 MG TAB PO ONE (21:00)
[2016-06-24] MEDS: ZOLPIDEM TARTRATE 5 MG TAB PO PRN (22:10)
[2016-06-25 07:03] LABS: ANION GAP 12 mEq/L (8-16); CALCIUM 8.8 mg/dL (8.5-10.4); CARBON DIOXIDE 23 mEq/l (22-31); CHLORIDE 105 mEq/L (97-110); CHOLESTEROL 148 mg/dL (140-220); CHOLESTEROL/HDL RATIO 3.52 RATIO (1.00-4.97); CREATININE 1.5 mg/dL (0.7-1.3); GLOMERULAR FILTRATION RATE 45; GLUCOSE 153 mg/dL (70-100); HIGH DENSITY LIPOPROTEIN 42 mg/dL (40-65); LOW DENSITY LIPOPROTEIN 88 mg/dL (80-100); MAGNESIUM 2.2 mg/dL (1.6-2.3); NON-HIGH DENSITY LIPOPROTEIN 106 mg/dL (90-129); POTASSIUM 4.7 mEq/L (3.5-5.2); SODIUM 140 mEq/L (134-144); TRIGLYCERIDE 93 mg/dL (40-150); VERY LOW DENSITY LIPOPROTEINS 18 mg/dL (8-25)
[2016-06-25] MEDS: LEVOTHYROXINE 50 MCG TAB PO SCH (07:32)
[2016-06-25] MEDS: THYROID 60 MG TAB PO SCH (07:32)
[2016-06-25] MEDS: ASPIRIN EC 81 MG TAB PO SCH (09:00)
[2016-06-25] MEDS: methylPREDNISolone 4 MG TAB PO SCH ×3 (09:13→18:31)
[2016-06-25] MEDS: CARVEDILOL 3.125 MG TAB PO SCH ×2 (09:14→18:30)
[2016-06-25] MEDS: FUROSEMIDE 40 MG/4 ML VIAL IVP SCH (09:15)
[2016-06-25] MEDS: FLUTICASONE NASAL 120 SPRAYS/16 GM MDI EACHNARE SCH (09:19)
[2016-06-25] MEDS: ENOXAPARIN 80 MG/0.8 ML SYR SC SCH ×2 (09:23→19:54)
--- NOTE | 2016-06-25 14:14 | PDCARPN ---
Cardiology Progress Note Chief Complaint: Patient reports continue of shortness of breath, but greatly improved since yesterday. Assessment/Plan: Assessment: 81-year-old male admitted for increased shortness of breath on 06/24/2016. Significant history that includes CAD, CABG x3 vessels (quispe to LAD, SVG to diagonal, SVG to circumflex), dyslipidemia, hypothyroidism, osteoarthritis. Patient also reporting ongoing episode upper respiratory infection with sinusitis for the last 6-8 weeks prior to admission. Noted to be in AFib with RVR with rates up to 130 BPM, echocardiogram done on a.m. (08/22/2016) showing EF of 15%, global cardiomyopathy, biatrial enlargement, moderate to severe MR, RVSP of 41 mm Hg. In comparison to previous study done in our office 08/2014, EF had from 60%. Patient reporting no chest pain or symptoms suggesting of ischemia. Mild elevated troponin which is trended down, peak level was 0.145, and elevated BNP, 8060. CTA of the chest done in the emergency department showing no PE. Start low-dose carvedilol at 3.125 mg p.o. twice daily, and IV diuresis. Patient also started on anticoagulation with Lovenox. Patient with a net output 3000 mL. in last 24 hours Weight is down 1.1 kilos. Remains in atrial fibrillation, but better rate control, heart rate in the 60s to 80s, occasional PVC, no other significant arrhythmias noted. No significant pauses. Patient reporting SOB has improved significantly, JVD is down, creatinine mildly up at 1.5 in comparison to 1.3 on admission. Plan: 1. Cardiomyopathy with systolic heart failure NYHA class III-IV: Has made improvement with IV diuresis, tolerating low-dose beta-chichi, concerned about potential bradycardia with past history of lower heart rate when in sinus rhythm. Will start him on SENDY-inhibitor today. Plan on evaluating for possible cardiac ischemia as cause with catheterization in a.m. will hold p.m. dose of Lasix to allow kidneys rest from diuresis and prepare for dye load. 2. CAD: Patient denies of any chest pain or symptoms of angina that he has had in the past prior to his bypass but with recent, mildly elevated troponin on downward trend, recent diagnosis of EF of 15%, have discussed with Dr. Rowe , and is scheduled for patient to undergo left heart catheterization with grafts in a.m.. Patient will be made MPL. Continue on current home dose of aspirin. Beta-chichi as above. 3. Persistent atrial fibrillation: Uncertain of the duration, well rate control on low-dose beta-chichi at this time, no changes. Patient chads Vasc score 4, has been started on Lovenox, will hold a.m. dose tomorrow in preparation for cardiac catheterization to prevent bleeding. Have spoken to Dr. Rowe, consideration of letting patient stay in AFib with rate control and anticoagulation for 1 month, and then consider cardioversion at that time. Will plan for him to undergo FLAKITO during cath to evaluate his MR 4. Hyperlipidemia: Patient had been on simvastatin, but had stopped it due to being on Biaxin for his sinus infection. Have talked to Dr. Hancock, who says he will discontinue patient's Biaxin, and will restart him back on statin therapy. 06/25/16 14:14 Subjective: Patient denies of any chest pain, reports breathing has greatly improved. Denies of any palpitations, lightheadedness, near-syncope or syncopal events. Denies of any bleeding issues, on anticoagulation of Lovenox. Reviewed/Discussed With: family (Patient's and daughter), hospitalist (Dr Hancock), other (Dr Rowe) Objective: Vital Signs (8 Hrs) Temp Pulse Resp BP Pulse Ox 06/25/16 11:16 36.3 C 73 18 117/80 95 06/25/16 07:43 35.3 C L 74 16 101/69 97 Intake/Output (24 Hrs) 06/24/16 06/25/16 06/26/16 05:59 05:59 05:59 Intake Total 1680 Output Total 4975 700 Balance -3295 -700 Intake: Oral (ml) 1030 IV Infused (ml) 650 Output: Urine (ml) 4975 700 Urinal 4175 700 Other: Weight 73.4 kg 73.4 kg Intake Quantity Yes Sufficient Number of Voids Urinal 1 1 Result Diagrams: 06/24/16 04:04 06/25/16 06:05 Cardiac Labs: Cardiac Lab Results (72 Hrs) 06/24/16 06/24/16 16:03 10:00 CK-MB (CK-2) Fraction 5.83 H Troponin I 0.131 H 0.145 H - Physical Exam Constitutional: WDWN, no apparent distress Ears, Nose, Mouth, Throat: moist mucous membranes Cardiovascular: systolic murmur (2/6 systolic murmur along left sternal border.) , irregularly irregular (Atrial fibrillation, well rate controlled), jugular vein distention (4-5 cm above sternal notch at 45 degree angle), pulses symmetric bilat, No no rubs, No carotid bruit Peripheral Pulses: 1+: dorsalis-pedis (R), dorsalis-pedis (L), 2+: carotid (R), carotid (L) Respiratory: other (Lungs clear, but diminished in bases bilateral, no rhonchi, rales, or wheezing noted. No accessary muscle use.) Gastrointestinal: normoactive bowel sounds Skin: warm, no edema Neurologic: AAOx3, CN II-XII grossly intact Psychiatric: cooperative, interactive, following commands ICD10 Worksheet Patient Problems: Problems Problem Status Onset Lumbar stenosis Acute Near syncope Acute Atrial fibrillation with RVR Acute Hyperkalemia Acute Congestive cardiac failure Acute Dyspnea Acute New onset atrial fibrillation Acute
[2016-06-25] MEDS ORDERED: TEMAZEPAM 15 MG CAP PO PRN (14:51)
--- NOTE | 2016-06-25 16:37 | HOSPPROG ---
Hospitalist Progress Note Assessment/Plan: DIAGNOSIS: # ACUTE SYSTOLIC CONGESTIVE HEART FAILURE # ACUTE ATRIAL FIBRILLATION WITH RAPID RESPONSE # NEW CARDIOMYOPATHY WITH SEVERELY REDUCED LV EF # HISTORY OF CORONARY ARTERY DISEASE AND BYPASS SURGERY # RECENT SINUS INFECTION TREATED WITH STEROID AND ANTIBIOTIC # CHRONIC RENAL INSUFFICIENCY # HISTORY OF HYPOTHYROIDISM Again good response today with diuresis. Symptomatically is much better and by exam better. At this point it will be essential to assess his coronaries and continue on diuretic and maximize medical therapy. 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: Atrial flutter with 1 to 4 conduction on my review Good diuresis on I&O recording so far Exam: alert oriented skin warm dry color ok resps not labored lungs minimal rales heart regular abd soft nondistended nontender, bowel sounds present limbs warm, no edema iv site ok Echocardiogram: ejection fraction 15% down from 65 LABORATORY DATA: creatinine minimally elevated today from yesterday at 1.5 Troponins unchanged Objective: Vital Signs Temp Pulse Resp BP Pulse Ox 36.6 C 61 14 107/80 96 06/25/16 15:34 06/25/16 15:34 06/25/16 15:34 06/25/16 15:34 06/25/16 15:34 Laboratory Results 06/25/16 06:05 06/24/16 06/25/16 06/26/16 06:59 06:59 06:59 Intake Total 730 950 840 Output Total 800 4175 700 Balance -70 -3225 140 PT 15.1 SEC (12.0-15.0) H 06/24/16 04:04 INR 1.19 (0.83-1.16) H 06/24/16 04:04 ICD10 Worksheet Patient Problems: Problems Problem Status Onset Atrial fibrillation with RVR Acute Congestive cardiac failure Acute Dyspnea Acute Hyperkalemia Acute Near syncope Acute New onset atrial fibrillation Acute Lumbar stenosis Acute
[2016-06-25 18:13] LABS: POTASSIUM 4.9 mEq/L (3.5-5.2)
[2016-06-25] MEDS: LISINOPRIL 2.5 MG TAB PO SCH (19:53)
[2016-06-25] MEDS: ATORVASTATIN CALCIUM 40 MG TAB PO SCH (19:54)
[2016-06-25] MEDS ORDERED: methylPREDNISolone 4 MG TAB PO SCH (21:00)
[2016-06-25] MEDS: TESTOSTERONE 2 MG TD SCH (21:02)
[2016-06-25] MEDS: ZOLPIDEM TARTRATE 5 MG TAB PO PRN (22:31)
[2016-06-26 05:08] LABS: % IMMATURE GRANULYOCYTES 0.6 % (0.0-1.1); ABSOLUTE IMMATURE GRANULOCYTES 0.05 10^3/uL (0.00-0.10); ADD DIFF? NO; ADD MORPH? NO; ADD SCAN? NO; ATYPICAL LYMPHOCYTE FLAG 0 (0-99); FRAGMENT RBC FLAG 0 (0-99); HEMATOCRIT 40.2 % (40.0-51.0); HEMOGLOBIN 14.2 g/dL (13.7-17.5); LEFT SHIFT FLG 0 (0-99); LIPEMIA HEMOLYSIS FLAG 90 (0-99); MEAN CELL HEMOGLOBIN 35.6 pg (27.9-34.1); MEAN CELL HEMOGLOBIN CONCENTR. 35.3 g/dL (32.4-36.7); MEAN CELL VOLUME 100.8 fL (81.5-99.8); MEAN PLATELET VOLUME 10.9 fL (8.7-11.7); PLATELET CLUMPS FLAG 10 (0-99); PLATELET COUNT 170 10^3/uL (150-400); RED BLOOD CELL COUNT 3.99 10^6/uL (4.40-6.38)
[2016-06-26 05:17] LABS: ANION GAP 9 mEq/L (8-16); CALCIUM 8.6 mg/dL (8.5-10.4); CARBON DIOXIDE 26 mEq/l (22-31); CHLORIDE 101 mEq/L (97-110); CREATININE 1.4 mg/dL (0.7-1.3); GLOMERULAR FILTRATION RATE 49; GLUCOSE 144 mg/dL (70-100); MAGNESIUM 2.3 mg/dL (1.6-2.3); POTASSIUM 4.7 mEq/L (3.5-5.2); SODIUM 136 mEq/L (134-144)
[2016-06-26 05:29] LABS: APTT 37.2 SEC (23.0-38.0); INR 1.35 (0.83-1.16); PROTIME(PATIENT) 16.7 SEC (12.0-15.0)
[2016-06-26] MEDS ORDERED: NS 1,000 ML IV ONE (06:00)
[2016-06-26] MEDS ORDERED: NITROGLYCERIN 0.4 MG BTL SL PRN ×2 (06:00→13:11)
[2016-06-26] MEDS ORDERED: DIAZEPAM 5 MG TAB PO ONE (06:00)
[2016-06-26] MEDS ORDERED: diphenhydrAMINE 25 MG CAP PO ONE ×2 (06:00→09:43)
[2016-06-26] MEDS ORDERED: methylPREDNISolone 4 MG TAB PO SCH (07:30)
[2016-06-26] MEDS: LEVOTHYROXINE 50 MCG TAB PO SCH ×2 (08:00→16:17)
[2016-06-26] MEDS: methylPREDNISolone 4 MG TAB PO SCH ×3 (08:00→18:09)
[2016-06-26] MEDS: CARVEDILOL 3.125 MG TAB PO SCH ×2 (08:57→18:08)
--- NOTE | 2016-06-26 08:59 | CPEKG ---
Heart Rate: 62 RR Interval: 968 QRSD Interval: 110 QT Interval: 448 QTC Interval: 455 QRS [place]: -49 T Wave [place]: 110 EKG Severity - ABNORMAL ECG - EKG Impression: ATRIAL FIBRILLATION, V-RATE 49-72 EKG Impression: VENTRICULAR PREMATURE COMPLEX EKG Impression: INCOMPLETE LEFT BUNDLE BRANCH BLOCK EKG Impression: PROBABLE LVH WITH SECONDARY REPOL ABNRM Electronically Signed By: Sj Baron 26-Jun-2016 12:18:19
[2016-06-26] MEDS: ASPIRIN EC 81 MG TAB PO SCH (09:00)
[2016-06-26] MEDS ORDERED: ASPIRIN EC 325 MG TAB PO ONE (09:43)
[2016-06-26] MEDS ORDERED: FAMOTIDINE 20 MG TAB ONE (09:43)
[2016-06-26] MEDS ORDERED: DIAZEPAM 5 MG TAB ONE (09:43)
[2016-06-26] MEDS: FLUTICASONE NASAL 120 SPRAYS/16 GM MDI EACHNARE SCH (09:47)
[2016-06-26] MEDS: THYROID 60 MG TAB PO SCH ×2 (09:47→16:17)
[2016-06-26] MEDS ORDERED: LIDOCAINE 1% 30 ML SDV ONE (10:23)
[2016-06-26] MEDS ORDERED: IOPAMIDOL (ISOVUE 370) 100 ML BTL IV ONE (10:24)
[2016-06-26] MEDS ORDERED: PROPOFOL/EMULSION 500 MG/50 ML BOTTLE IV ONE (10:57)
[2016-06-26] MEDS ORDERED: fentaNYL 100 MCG/2 ML INJ ONE (10:57)
--- NOTE | 2016-06-26 12:09 | PDDXCAT ---
Diagnostic Cath Note - . Date: 06/26/16 Phlebotomy Manager: Jae Indication: other (severe cardiomyopathy) High-risk criteria on non-invasive testing: severe exercise left ventricular dysfunction (exercise LVEF<35%) - Procedure Access: right groin Procedure: left heart catheterization, coronary angiography, left ventriculogram , ALAS injection - Materials Left Heart Cath size: 6F Left Heart Cath materials: JL4.0, You's R - Findings-Left Heart Catheterization LM: normal LAD: 1.prox 75% lad.....1st diag back fills lad through [place] flow and svg flow into 1 st diag LCX: 1. mild irregs RCA: 1. calified vessel with mild irregs rSV. widely patent svg to 1st diag. 2.ostial occl svg to cx ALAS: 1. atretic...never "matured" to lad EDP: 18mmhg LVEF: 1. 20-25% with severe anterior hypokinesis Complications: none Estimated blood loss: <50ml Closure method: manual pressure Assessment: 1. severe lv dysfuction with only patent graft to 1st diag which backfills the lad. 2.lvedp 18 mmhg Plan: 1. med management with close f/u and consideration of biv- icd if needed Patient Problems: Problems Problem Status Onset Atrial fibrillation with RVR Acute Congestive cardiac failure Acute Dyspnea Acute Hyperkalemia Acute Near syncope Acute New onset atrial fibrillation Acute Lumbar stenosis Acute
[2016-06-26] MEDS ORDERED: OXYCODONE/APAP 5/325 TAB PO PRN (13:11)
[2016-06-26] MEDS ORDERED: ONDANSETRON 4 MG/2 ML VIAL IVP PRN (13:11)
[2016-06-26] MEDS ORDERED: HYDROCODONE/APAP 5/325 TAB PO PRN (13:11)
[2016-06-26] MEDS ORDERED: ATROPINE SULFATE 1 MG/10 ML SYR IVP PRN (13:11)
[2016-06-26] MEDS ORDERED: POLYETHYLENE GLYCOL 3350 17 GM PKT PO PRN (16:10)
[2016-06-26] MEDS ORDERED: MAGNESIUM HYDROXIDE 30 ML UDCUP PO PRN (16:10)
[2016-06-26] MEDS ORDERED: LACTULOSE 20 GM/30 ML UDCUP PO PRN (16:10)
[2016-06-26] MEDS ORDERED: BISACODYL 10 MG SUPP PR PRN (16:10)
--- NOTE | 2016-06-26 17:08 | HOSPPROG ---
Hospitalist Progress Note Assessment/Plan: DIAGNOSIS: # ACUTE SYSTOLIC CONGESTIVE HEART FAILURE # ACUTE ATRIAL FIBRILLATION WITH RAPID RESPONSE # NEW CARDIOMYOPATHY WITH SEVERELY REDUCED LV EF # HISTORY OF CORONARY ARTERY DISEASE AND BYPASS SURGERY # RECENT SINUS INFECTION TREATED WITH STEROID AND ANTIBIOTIC # CHRONIC RENAL INSUFFICIENCY # ESOPHAGEAL STRICTURE # HISTORY OF HYPOTHYROIDISM Overall doing well in terms of diuresis and improved symptoms. No chest pain, no palpitations and no arrhythmia beyond AFib In terms of the cause of his cardiomyopathy, certainly ischemia may play a role. His angiography shows changes that could account for at least some of it. Myocardial perfusion imaging will be done tomorrow to further assess the importance of his coronary flow situation at this time. Again with his respiratory symptoms the possibility of a viral myocarditis should be considered. At this point clearly ongoing diuresis and beta-chichi and SENDY- inhibitor therapy will be henry. PLANS: -continue diuresis, beta-chichi and SENDY-inhibitor therapy, as well as rate control and anticoagulation -I reviewed the case with Dr. Kishor Rowe -myocardial perfusion imaging tomorrow - recheck renal function tomorrow and the next day after this IV contrast load -at some point considering for cardioversion may be necessary. This is delayed at this time as we could not perform transesophageal echocardiogram today and will continue anticoagulation SUBJECTIVE: No angina or palpitations, less short of breath Sinuses with some thin drainage but do not feel painful or terribly congested at this time OBJECTIVE Vitals reviewed: Stable now with normal heart rates residential monitor: Atrial flutter with 1 to 4 conduction on my review Good diuresis on I&O recording so far Exam: alert oriented skin warm dry color ok resps not labored lungs minimal rales heart regular abd soft nondistended nontender, bowel sounds present limbs warm, no edema iv site ok Echocardiogram: ejection fraction 15% down from 65 Coronary angiography shows 2 of his bypass grafts down 1 of them certainly chronically, as well as significant stenosis of the left anterior descending [place] artery Transesophageal echocardiogram was attempted but was not able to be completed due to a proximal esophageal narrowing from stricture. This has been previously dilated by Dr. Valdez. Objective: Vital Signs Temp Pulse Resp BP Pulse Ox 35.4 C L 61 16 95/78 L 98 06/26/16 13:40 06/26/16 16:00 06/26/16 13:40 06/26/16 16:00 06/26/16 13:40 Laboratory Results 06/26/16 03:38 06/26/16 03:38 06/25/16 06/26/16 06/27/16 06:59 06:59 06:59 Intake Total 950 1040 Output Total 4175 1100 200 Balance -3225 -60 -200 PT 16.7 SEC (12.0-15.0) H 06/26/16 03:38 INR 1.35 (0.83-1.16) H 06/26/16 03:38 ICD10 Worksheet Patient Problems: Problems Problem Status Onset Atrial fibrillation with RVR Acute Congestive cardiac failure Acute Dyspnea Acute Hyperkalemia Acute Near syncope Acute New onset atrial fibrillation Acute Lumbar stenosis Acute
[2016-06-26 18:49] LABS: POTASSIUM 4.8 mEq/L (3.5-5.2)
[2016-06-26] MEDS: ATORVASTATIN CALCIUM 40 MG TAB PO SCH (21:15)
[2016-06-26] MEDS: LISINOPRIL 2.5 MG TAB PO SCH (21:15)
[2016-06-26] MEDS: SENNOSIDES/DOCUSATE SODIUM TAB PO SCH (21:15)
[2016-06-26] MEDS: TESTOSTERONE 2 MG TD SCH (21:15)
[2016-06-26] MEDS: ZOLPIDEM TARTRATE 5 MG TAB PO PRN (22:12)
[2016-06-27 05:07] LABS: ANION GAP 7 mEq/L (8-16); CALCIUM 8.4 mg/dL (8.5-10.4); CARBON DIOXIDE 27 mEq/l (22-31); CHLORIDE 104 mEq/L (97-110); CREATININE 1.2 mg/dL (0.7-1.3); GLOMERULAR FILTRATION RATE 58; GLUCOSE 124 mg/dL (70-100); MAGNESIUM 2.3 mg/dL (1.6-2.3); POTASSIUM 5.5 mEq/L (3.5-5.2); SODIUM 138 mEq/L (134-144)
[2016-06-27] MEDS ORDERED: methylPREDNISolone 4 MG TAB PO SCH ×2 (07:30)
[2016-06-27] MEDS: SENNOSIDES/DOCUSATE SODIUM TAB PO SCH ×2 (08:12→22:52)
[2016-06-27] MEDS: CARVEDILOL 3.125 MG TAB PO SCH (08:12)
[2016-06-27] MEDS: ASPIRIN EC 81 MG TAB PO SCH (08:13)
[2016-06-27] MEDS: THYROID 60 MG TAB PO SCH (08:14)
[2016-06-27] MEDS: LEVOTHYROXINE 50 MCG TAB PO SCH (08:14)
[2016-06-27] MEDS ORDERED: REGADENOSON 0.4 MG/5 ML SYR IVP ONE (10:05)
--- NOTE | 2016-06-27 10:15 | HOSPPROG ---
Hospitalist Progress Note Assessment/Plan: DIAGNOSIS: # ACUTE SYSTOLIC CONGESTIVE HEART FAILURE # ACUTE ATRIAL FIBRILLATION WITH RAPID RESPONSE # NEW CARDIOMYOPATHY WITH SEVERELY REDUCED LV EF # HISTORY OF CORONARY ARTERY DISEASE AND BYPASS SURGERY # RECENT SINUS INFECTION TREATED WITH STEROID AND ANTIBIOTIC # CHRONIC RENAL INSUFFICIENCY # ESOPHAGEAL STRICTURE # HISTORY OF HYPOTHYROIDISM Overall doing well in terms of diuresis and improved symptoms. No chest pain, no palpitations and no arrhythmia beyond AFib In terms of the cause of his cardiomyopathy, certainly ischemia may play a role. His angiography shows changes that could account for at least some of it. Myocardial perfusion imaging will be done tomorrow to further assess the importance of his coronary flow situation at this time. Again with his respiratory symptoms the possibility of a viral myocarditis should be considered. At this point clearly ongoing diuresis and beta-chichi and SENDY- inhibitor therapy will be henry. PLANS: -continue diuresis, beta-chichi and SENDY-inhibitor therapy, as well as rate control and anticoagulation -I reviewed the case with Dr. Kishor Rowe -myocardial perfusion imaging today -recheck renal function tomorrow again after this IV contrast load -at some point considering for cardioversion may be necessary. 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: Atrial fibrillation and flutter, I also see 1 episode of 7 beats of rapid ventricular complexes Good diuresis on I&O recording so far Exam: alert oriented skin warm dry color ok resps not labored lungs minimal rales heart regular abd soft nondistended nontender, bowel sounds present limbs warm, no edema iv site ok Laboratory data: Renal function is improved today after contrast yesterday PROCEDURES: -Echocardiogram: ejection fraction 15% down from 65 -Coronary angiography shows 2 of his bypass grafts down 1 of them certainly chronically, as well as significant stenosis of the left anterior descending [place] artery -Transesophageal echocardiogram was attempted but was not able to be completed due to a proximal esophageal narrowing from stricture. This has been previously dilated by Dr. Valdez. Objective: Vital Signs Temp Pulse Resp BP Pulse Ox 36.8 C 71 12 106/74 94 06/27/16 08:00 06/27/16 08:00 06/27/16 08:00 06/27/16 08:00 06/27/16 08:00 Laboratory Results 06/26/16 03:38 06/27/16 03:35 06/26/16 06/27/16 06/28/16 06:59 06:59 06:59 Intake Total 1040 790 Output Total 1100 1125 200 Balance -60 -335 -200 PT 16.7 SEC (12.0-15.0) H 06/26/16 03:38 INR 1.35 (0.83-1.16) H 06/26/16 03:38 ICD10 Worksheet Patient Problems: Problems Problem Status Onset Atrial fibrillation with RVR Acute Congestive cardiac failure Acute Dyspnea Acute Hyperkalemia Acute Near syncope Acute New onset atrial fibrillation Acute Lumbar stenosis Acute
[2016-06-27] MEDS ORDERED: TEMAZEPAM 15 MG CAP PO PRN (10:39)
--- NOTE | 2016-06-27 10:39 | SOAPPROG ---
KRISTEN Progress Note Assessment/Plan: Assessment:1. cad..pt with occl svg to om,occl [place] to lad...patent svg to 1st diag which is suplying lad as well..nuc today..rca looks good..will recommend lad stenting tommorrow to cover lad territory...hemodynically he is tolerating meds well 2. cm..? etiology..ischemic vs poss afib..on meds..will continue meds and see improvement of ef if not consider biv pacing in the future 3. afib..unable to pass bryce probe despite multiple manipulations,,known esophageal stricture..rec seeing dr quintero (gi) as out pt to see if he needs repeat dilation..no bleeding issues on meds so far Plan:1. as ordered 06/27/16 10:34 Subjective: pt doing well ..nocv c/o last night lexiscan tm without issues today..anticipagte cardiac stenting tommorrow of lad..d/w pt and Objective: Vital Signs Temp Pulse Resp BP Pulse Ox 36.8 C 71 12 106/74 94 06/27/16 08:00 06/27/16 08:00 06/27/16 08:00 06/27/16 08:00 06/27/16 08:00 Laboratory Results 06/26/16 03:38 06/27/16 03:35 06/26/16 06/27/16 06/28/16 05:59 05:59 05:59 Intake Total 1040 790 Output Total 1100 1125 200 Balance -60 -335 -200 PT 16.7 SEC (12.0-15.0) H 06/26/16 03:38 INR 1.35 (0.83-1.16) H 06/26/16 03:38 Physical Exam - Physical Exam Respiratory: lungs clear Cardiac/Chest: normal peripheral pulses, irregularly irregular, No edema ICD10 Worksheet Patient Problems: Problems Problem Status Onset Atrial fibrillation with RVR Acute Congestive cardiac failure Acute Dyspnea Acute Hyperkalemia Acute Near syncope Acute New onset atrial fibrillation Acute Lumbar stenosis Acute
[2016-06-27] MEDS: FLUTICASONE NASAL 120 SPRAYS/16 GM MDI EACHNARE SCH (11:10)
--- NOTE | 2016-06-27 12:47 | CPR ---
[f rep st] NONINVASIVE CARDIAC PROCEDURE REPORT DATE OF PROCEDURE: 06/27/2016 PROCEDURE: Lexiscan stress test. INDICATION: Ischemic cardiomyopathy, assessing flow to the anterior wall. DESCRIPTION OF PROCEDURE: After informed consent, the patient was given Lexiscan and a nuclear inje ction without issues. He had no side effects. He had stable vital signs of atrial fibrillation wit h controlled rate and blood pressure throughout the test. Afterward, he received caffeinated bevera ge. He had no symptoms and was hemodynamically stable. CONCLUSIONS: Uneventful Lexiscan stress test. Nuclear imaging pending a separate report. /[id number]/MODL
[2016-06-27] MEDS: TESTOSTERONE 2 MG TD SCH (20:46)
[2016-06-27] MEDS: ATORVASTATIN CALCIUM 40 MG TAB PO SCH (20:48)
[2016-06-27] MEDS: LISINOPRIL 2.5 MG TAB PO SCH (20:48)
[2016-06-27] MEDS: ZOLPIDEM TARTRATE 5 MG TAB PO PRN (21:51)
[2016-06-28 04:38] LABS: INR 1.19 (0.83-1.16); PROTIME(PATIENT) 15.1 SEC (12.0-15.0)
[2016-06-28 04:53] LABS: % IMMATURE GRANULYOCYTES 0.9 % (0.0-1.1); ABSOLUTE IMMATURE GRANULOCYTES 0.06 10^3/uL (0.00-0.10); ADD DIFF? NO; ADD MORPH? NO; ADD SCAN? NO; ATYPICAL LYMPHOCYTE FLAG 10 (0-99); FRAGMENT RBC FLAG 0 (0-99); HEMATOCRIT 41.2 % (40.0-51.0); HEMOGLOBIN 14.3 g/dL (13.7-17.5); LEFT SHIFT FLG 0 (0-99); LIPEMIA HEMOLYSIS FLAG 90 (0-99); MEAN CELL HEMOGLOBIN 35.5 pg (27.9-34.1); MEAN CELL HEMOGLOBIN CONCENTR. 34.7 g/dL (32.4-36.7); MEAN CELL VOLUME 102.2 fL (81.5-99.8); MEAN PLATELET VOLUME 10.7 fL (8.7-11.7); PLATELET CLUMPS FLAG 10 (0-99); PLATELET COUNT 160 10^3/uL (150-400); RED BLOOD CELL COUNT 4.03 10^6/uL (4.40-6.38); RED CELL DISTRIBUTION WIDTH 14.1 % (11.5-15.2)
[2016-06-28 04:59] LABS: ANION GAP 7 mEq/L (8-16); CALCIUM 8.6 mg/dL (8.5-10.4); CARBON DIOXIDE 25 mEq/l (22-31); CHLORIDE 105 mEq/L (97-110); CHOLESTEROL 125 mg/dL (140-220); CHOLESTEROL/HDL RATIO 3.57 RATIO (1.00-4.97); CREATININE 1.1 mg/dL (0.7-1.3); GLOMERULAR FILTRATION RATE > 60; GLUCOSE 104 mg/dL (70-100); HIGH DENSITY LIPOPROTEIN 35 mg/dL (40-65); LDL/HDL RATIO 1.97 RATIO (1.00-3.64); LOW DENSITY LIPOPROTEIN 69 mg/dL (80-100); MAGNESIUM 2.3 mg/dL (1.6-2.3); NON-HIGH DENSITY LIPOPROTEIN 90 mg/dL (90-129); POTASSIUM 5.1 mEq/L (3.5-5.2); SODIUM 137 mEq/L (134-144); TRIGLYCERIDE 107 mg/dL (40-150); VERY LOW DENSITY LIPOPROTEINS 21 mg/dL (8-25)
[2016-06-28] MEDS ORDERED: NITROGLYCERIN 0.4 MG BTL SL PRN (06:00)
[2016-06-28] MEDS ORDERED: ACETAMINOPHEN 325 MG TAB PO PRN (06:00)
[2016-06-28] MEDS: THYROID 60 MG TAB PO SCH (08:45)
[2016-06-28] MEDS: LEVOTHYROXINE 50 MCG TAB PO SCH (08:45)
[2016-06-28] MEDS ORDERED: diphenhydrAMINE 25 MG CAP PO ONE ×2 (09:06→10:40)
[2016-06-28] MEDS ORDERED: FAMOTIDINE 20 MG TAB ONE (09:07)
[2016-06-28] MEDS ORDERED: DIAZEPAM 5 MG TAB ONE (09:07)
[2016-06-28] MEDS ORDERED: ASPIRIN EC 325 MG TAB PO ONE ×2 (09:07→10:40)
[2016-06-28] MEDS ORDERED: LIDOCAINE 1% 30 ML SDV ONE (10:18)
[2016-06-28] MEDS ORDERED: MIDAZOLAM 2 MG/2 ML VIAL ONE (10:19)
[2016-06-28] MEDS ORDERED: fentaNYL 100 MCG/2 ML INJ ONE ×2 (10:19→10:55)
[2016-06-28] MEDS ORDERED: IOPAMIDOL (ISOVUE 370) 100 ML BTL IV ONE ×2 (10:20→11:51)
[2016-06-28] MEDS ORDERED: NITROGLYCERIN 1,500 MCG/15 ML VIAL MISC ONE (10:22)
[2016-06-28] MEDS ORDERED: BIVALIRUDIN 250 MG/5 ML VIAL IV ONE (10:22)
[2016-06-28] MEDS ORDERED: DIAZEPAM 5 MG TAB PO ONE (10:40)
[2016-06-28] MEDS ORDERED: CLOPIDOGREL BISULFATE 75 MG TAB ONE (12:18)
[2016-06-28] MEDS ORDERED: CLOPIDOGREL BISULFATE 75 MG TAB PO ONE (12:43)
--- NOTE | 2016-06-28 13:00 | CPEKG ---
Heart Rate: 57 RR Interval: 1053 QRSD Interval: 120 QT Interval: 444 QTC Interval: 433 QRS [place]: -51 T Wave [place]: 97 EKG Severity - ABNORMAL ECG - EKG Impression: ATRIAL FIBRILLATION EKG Impression: INCOMPLETE LEFT BUNDLE BRANCH BLOCK EKG Impression: PROBABLE LEFT VENTRICULAR HYPERTROPHY Electronically Signed By: Sj Baron 28-Jun-2016 13:24:57
--- NOTE | 2016-06-28 13:36 | CPIP ---
[f rep st] INVASIVE CARDIAC PROCEDURE DATE OF PROCEDURE: 06/28/2016 PROCEDURE: 1. Coronary angiography. 2. Stenting of left anterior descending coronary artery with Synergy drug-eluting stent. 3. Stenting of circumflex coronary artery with Synergy drug-eluting stent. INDICATION: 1. Known coronary artery disease status post previous bypass grafting surgery. 2. Class III dyspnea on exertion concerning for an anginal equivalent versus congestive heart failu re. 3. New onset ischemic cardiomyopathy. 4. Abnormal nuclear stress test, high risk. ACCESS: Patient was prepped and draped in the sterile fashion. 1% lidocaine was used to anesthetiz e the left inguinal region. A 6-Dominican introducer sheath was placed selectively into the left commo n femoral artery via modified Seldinger technique. It was later exchanged for 7-Dominican introducer s karthik via exchange wire technique. CORONARY ANGIOGRAPHY: A 6-Dominican EBU 3.5 catheter was advanced to the left main coronary artery and images obtained. The left main coronary artery bifurcated into an LAD and circumflex coronary sanchez dionte. The left main coronary artery had a distal 20-25% stenosis present. The left anterior descen ding coronary artery had a proximal 75% stenosis present. The left anterior descending coronary art anibal gave rise to 1 prominent diagonal branch. The prominent diagonal branch was free of significant disease and had a previous bypass graft connected to it. Retrograde flow can be seen extending up the bypass graft. The circumflex coronary artery was nondominant. The circumflex coronary artery h ad an ostial 80% stenosis present. PERCUTANEOUS CORONARY INTERVENTION: Percutaneous coronary intervention of the left anterior descend ing coronary artery: A 6-Dominican EBU 3.5 catheter was advanced to the left main coronary artery and images obtained. Images confirmed the presence of high-grade disease involving the proximal to mid left anterior descending coronary artery. A Luge wire was placed in the distal vessel and position verified by angiography. A 2.5 x 15 Emerge balloon was used to pre-dilate the lesion. Followup ang iography demonstrated significant residual stenosis. A 2.5 x 20 Synergy drug-eluting stent was then placed across the lesion and deployed. Followup angiography demonstrated incomplete stent expansio n in the proximal portion. The proximal portion of the stent was post-dilated with a 3.0 x 8 noncom pliant balloon. Followup angiography demonstrated OLIVERIO-3 flow. No residual stenosis. Percutaneous coronary intervention of the circumflex coronary artery: A 6-Dominican EBU catheter was a dvanced to the left main coronary artery and images obtained. Angiography confirmed the presence of an 80% stenosis in the ostial circumflex coronary artery. A Luge wire was placed into the OM arter y and position verified by angiography. A 2.5 x 15 Emerge balloon was used to pre-dilate the lesion . This was followed by 3.0 x 15 noncompliant balloon. Then, a 3.0 x 16 Synergy drug-eluting stent was extending from the left main into the proximal circumflex and deployed. Followup angiography de monstrated OLIVERIO-3 flow/incomplete stent expansion in the ostial portion of the stent. The stent was post-dilated with a 3.25 x 12 noncompliant balloon. Followup angiography demonstrated OLIVERIO-3 flow. No residual stenosis. COMPLICATIONS: None. CONCLUSIONS: 1. 2-vessel coronary artery disease. 2. Status post successful percutaneous coronary intervention of the left anterior descending [place] artery. 3. Status post successful percutaneous coronary intervention of the circumflex coronary artery. /[id number]/MODL
[2016-06-28] MEDS: CARVEDILOL 3.125 MG TAB PO SCH ×2 (16:19→18:08)
[2016-06-28] MEDS: ASPIRIN EC 81 MG TAB PO SCH (16:23)
[2016-06-28] MEDS: FLUTICASONE NASAL 120 SPRAYS/16 GM MDI EACHNARE SCH (16:25)
[2016-06-28] MEDS: SENNOSIDES/DOCUSATE SODIUM TAB PO SCH ×2 (16:26→20:38)
--- NOTE | 2016-06-28 18:20 | HOSPPROG ---
Hospitalist Progress Note Assessment/Plan: DIAGNOSIS: # ACUTE SYSTOLIC CONGESTIVE HEART FAILURE # ACUTE ATRIAL FIBRILLATION WITH RAPID RESPONSE # NEW CARDIOMYOPATHY WITH SEVERELY REDUCED LV EF 15% # HISTORY OF CORONARY ARTERY DISEASE AND BYPASS SURGERY # ONGOING SEVERE SINUS SYMPTOMS TREATED WITH STEROID AND ANTIBIOTIC; CTs show severe congestion and air-fluid levels done elsewhere # CHRONIC RENAL INSUFFICIENCY # ESOPHAGEAL STRICTURE # HISTORY OF HYPOTHYROIDISM He has diuresed nicely, and between this and addition of beta-chichi and SENDY- inhibitor he is feeling significantly better. Have now hopefully open up good flow to the anterior wall with stents to the LAD. I am optimistic that with these therapies he will be able to have improved ejection fraction improved symptomatology. He can probably be discharged June 29 and on intensive medical therapy In terms of his ongoing sinusitis issues his Ear Nose Throat specialist at the [place] had plan to have him take Biaxin for 3 weeks and then reassess and determine whether he should have sinus surgery. At this point because of interactions with statins Biaxin is not going to be usable antibiotic for him. He has already taken cephalosporin and Augmentin without significant impact. Sinus surgery is probably not going to be realistic and less they can do it with him on Plavix. He would have to come off of anticoagulation to do this. This is not ideal given his current overall cardiac setting in the near future. However he remains quite symptomatic with marked congestion and profuse drainage. I will have him try some doxycycline and see if this improves his sinuses at all and have him follow up with his urine is Throat doctors after discharge I reviewed the case with Dr. Allen Mendoza today PLANS: -continue diuresis, beta-chichi and SENDY-inhibitor therapy, Plavix, as well as rate control and anticoagulation -recheck renal function tomorrow again after this IV contrast load -at some point considering for cardioversion may be necessary. This is delayed at this time as we could not perform transesophageal echocardiogram and will continue anticoagulation for now - trial of doxycycline for sinuses along with continued steroid nasal spray stay ; he does not tolerate oral steroids and does not want to take any more of these SUBJECTIVE: No angina or palpitations, no longer short of breath Sinuses doing very well Eating well OBJECTIVE Vitals reviewed: Stable with normal heart rates patient monitor: Atrial fibrillation and flutter, I also see 1 episode of 7 beats of rapid ventricular complexes Good diuresis on I&O recording so far Exam: alert oriented skin warm dry color ok resps not labored lungs minimal rales heart regular abd soft nondistended nontender, bowel sounds present limbs warm, no edema iv site ok Laboratory data: Renal function is improved today after contrast yesterday PROCEDURES: -Echocardiogram: ejection fraction 15% down from 65 -Coronary angiography shows 2 of his bypass grafts down 1 of them certainly chronically, as well as significant stenosis of the left anterior descending [place] artery -Transesophageal echocardiogram was attempted but was not able to be completed due to a proximal esophageal narrowing from stricture. This has been previously dilated by Dr. Valdez. - stenting of left anterior descending today by Dr. Allen Mendoza Objective: Vital Signs Temp Pulse Resp BP Pulse Ox 36.7 C 68 18 87/54 L 94 06/28/16 16:47 06/28/16 16:47 06/28/16 16:47 06/28/16 16:47 06/28/16 16:47 Laboratory Results 06/28/16 03:52 06/28/16 03:52 06/27/16 06/28/16 06/29/16 06:59 06:59 06:59 Intake Total 790 840 Output Total 1125 600 Balance -335 240 PT 15.1 SEC (12.0-15.0) H 06/28/16 03:52 INR 1.19 (0.83-1.16) H 06/28/16 03:52 ICD10 Worksheet Patient Problems: Problems Problem Status Onset Atrial fibrillation with RVR Acute Congestive cardiac failure Acute Dyspnea Acute Hyperkalemia Acute Near syncope Acute New onset atrial fibrillation Acute Lumbar stenosis Acute
[2016-06-28] MEDS: LISINOPRIL 2.5 MG TAB PO SCH (20:37)
[2016-06-28] MEDS: ATORVASTATIN CALCIUM 40 MG TAB PO SCH (20:38)
[2016-06-28] MEDS: DOXYCYCLINE HYCLATE 100 MG CAP/TAB PO SCH (20:38)
[2016-06-28] MEDS: TESTOSTERONE 2 MG TD SCH (20:45)
[2016-06-28] MEDS: ZOLPIDEM TARTRATE 5 MG TAB PO PRN (22:12)
[2016-06-29 04:31] LABS: % IMMATURE GRANULYOCYTES 0.5 % (0.0-1.1); ABSOLUTE IMMATURE GRANULOCYTES 0.04 10^3/uL (0.00-0.10); ADD DIFF? NO; ADD MORPH? NO; ADD SCAN? NO; ATYPICAL LYMPHOCYTE FLAG 0 (0-99); FRAGMENT RBC FLAG 0 (0-99); HEMATOCRIT 41.5 % (40.0-51.0); HEMOGLOBIN 14.4 g/dL (13.7-17.5); LEFT SHIFT FLG 0 (0-99); LIPEMIA HEMOLYSIS FLAG 90 (0-99); MEAN CELL HEMOGLOBIN 35.6 pg (27.9-34.1); MEAN CELL HEMOGLOBIN CONCENTR. 34.7 g/dL (32.4-36.7); MEAN CELL VOLUME 102.5 fL (81.5-99.8); MEAN PLATELET VOLUME 10.4 fL (8.7-11.7); PLATELET CLUMPS FLAG 0 (0-99); PLATELET COUNT 160 10^3/uL (150-400); RED BLOOD CELL COUNT 4.05 10^6/uL (4.40-6.38); RED CELL DISTRIBUTION WIDTH 14.1 % (11.5-15.2)
[2016-06-29 05:11] LABS: ANION GAP 7 mEq/L (8-16); CALCIUM 8.8 mg/dL (8.5-10.4); CARBON DIOXIDE 26 mEq/l (22-31); CHLORIDE 103 mEq/L (97-110); CREATININE 1.2 mg/dL (0.7-1.3); GLOMERULAR FILTRATION RATE 58; GLUCOSE 92 mg/dL (70-100); POTASSIUM 4.9 mEq/L (3.5-5.2); SODIUM 136 mEq/L (134-144)
[2016-06-29] MEDS: THYROID 60 MG TAB PO SCH (05:35)
[2016-06-29] MEDS: LEVOTHYROXINE 50 MCG TAB PO SCH (05:35)
[2016-06-29 08:13] VITALS: BP 115/83; PULSE 83; RESP 16; TEMP 97.8; O2SAT 92
[2016-06-29] MEDS ORDERED: CLOPIDOGREL BISULFATE 75 MG TAB PO SCH (09:00)
[2016-06-29] MEDS: DOXYCYCLINE HYCLATE 100 MG CAP/TAB PO SCH (09:05)
[2016-06-29] MEDS: CARVEDILOL 3.125 MG TAB PO SCH (09:05)
[2016-06-29] MEDS: FLUTICASONE NASAL 120 SPRAYS/16 GM MDI EACHNARE SCH (09:05)
[2016-06-29] MEDS: SENNOSIDES/DOCUSATE SODIUM TAB PO SCH (09:06)
[2016-06-29] MEDS: ASPIRIN EC 81 MG TAB PO SCH (09:06)
[2016-06-29] MEDS ORDERED: CETIRIZINE 10 MG TAB PO SCH (09:30)
[2016-06-29] MEDS ORDERED: APIXABAN 5 MG TAB PO SCH (09:30)
--- NOTE | 2016-06-29 10:14 | GDS ---
[f rep st] DISCHARGE SUMMARY DISCHARGE DIAGNOSES: 1. Coronary artery disease with a history of CABG x3, status post stenting of the LAD and circumfle x on June 28, 2016. 2. Acute systolic heart failure secondary to ischemic cardiomyopathy with severely reduced ejection fraction of 15%. 3. Atrial fibrillation with rapid ventricular response. 4. Refractory severe sinus infection. 5. Chronic kidney disease. 6. Esophageal stricture. 7. History of hypothyroidism. CONSULTANTS: Dr. Kishor Rowe, dry charge process attendant at [facility]. PROCEDURES: Coronary angiography with stenting of the left anterior descending and circumflex with Synergy drug-eluting stents on June 28, 2016. HISTORY: For details, please see the history and physical by Dr. Mojgan Ly dated June 122016. In brief, the patient is an 81-year-old male with a history of coronary artery disease and prior CABG who presented to the emergency department with dyspnea on exertion and new onset atrial fibrillation. He was admitted to the hospital for further management. HOSPITAL COURSE: The patient was admitted to the telemetry unit. He was found to have an elevated troponin in the setting of AFib with rapid ventricular rate in the 120s. He was rate controlled wit h beta chichi, and anticoagulation was started with Lovenox. He had an abnormal myocardial perfusi on scan with apical anterior infarct suggested, though no evidence of ischemia. He then underwent c oronary angiography June 28, 2016, by Dr. Allen Mendoza and 2 drug-eluting stents were placed in t he LAD and circumflex arteries. He was then started on dual antiplatelet therapy. At the time of h is angiogram, his ejection fraction was found to be severely reduced at 15%. He was started on low- dose SENDY inhibitor. He also required diuresis, although euvolemic at the time of discharge off diur etic therapy. His Lovenox was transitioned to Eliquis post angiogram. Transesophageal echocardiogr am was attempted during the hospitalization. However, this was unable to be performed due to a note d esophageal stricture. The patient has had a history of esophageal stricture which required dilati on by Dr. Valdez in the past. He also has a history of severe ongoing sinus infection and sinus symptoms. He has been treated wit h oral steroids, so he wished to discontinue these during this hospitalization. He has had continue d management with inhaled steroid and antibiotic therapy. Initially, the plan was for him to take 3 weeks of Biaxin. However, given the addition of statin therapy in the setting of his coronary sanchez ry disease, Biaxin was discontinued due to drug interaction and he was discharged home on doxycyclin e. His condition is stable. DISPOSITION: Patient was discharged home in stable condition. FOLLOWUP: 1. Dr. Kishor Rowe, [facility]. 2. Dr. Aubrey Valdez, gastroenterology, for followup on his esophageal stricture. DISCHARGE MEDICATIONS: Please see [facility] for a complete updated outpatient medication list. New medications on discharge include: 1. Aspirin 81 mg p.o. daily. 2. Atorvastatin 40 mg p.o. q.h.s. 3. Coreg 3.125 mg p.o. b.i.d. 4. Zyrtec 10 mg p.o. daily. 5. Plavix 75 mg p.o. daily. 6. Doxycycline 100 mg p.o. b.i.d. 7. Lisinopril 2.5 mg p.o. q.h.s. He will continue all other medications as prescribed. Discontinued medications on discharge include Biaxin, methylprednisolone, and etodolac. /[id number]/MODL
--- NOTE | 2016-06-29 11:10 | SOAPPROG ---
SOAP Progress Note Assessment/Plan: Assessment: 1. Coronary artery disease 2. Status post coronary bypass grafting 3. Ischemic cardiomyopathy 4. The acute on chronic heart failure with reduced ejection fraction. 5. Mitral regurgitation 6. Pulmonary hypertension 7. Aortic insufficiency. 8. Atrial fibrillation with rapid ventricular response 9. Sinusitis 10. Steroid therapy. He received 2 stents yesterday and has done well from that. He has not had any significant renal complications. His access site is fine. He is not having any new problems right now. He is not having angina. His heart failure has improved dramatically with diuresis this week in the hospital. His chest x-ray when he came in showed mild pulmonary vascular congestion. He has mild pulmonary hypertension with a pulmonary artery pressure 41. He has significant mitral regurgitation. There is nothing to suggest endocarditis. I think he has a very severe cardiomyopathy and has been started on the right medications to work on this problem. 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 It would be wonderful for him if his LV systolic function improves. We will follow him over time if his systolic function is below 35 we would strongly recommend that he get a defibrillator at the right time. He will have a follow-up echocardiographic studies while he is in clinic. I have had a chance to talk to he and his in all her questions have been answered. I have also talked to the hospitalist. His prognosis has to be guarded he has advanced significant vascular disease and clearly will have vascular disease and other vascular distributions as well as coronaries disease. When he had his new bypass surgery received a ALAS to the LAD and saphenous vein graft to the diagonal and a saphenous vein graft to the circumflex. He is bothered significantly by ongoing upper respiratory tract issues sinus issues and all that has been addressed in the clinic carefully. While in the hospital he had atrial fibrillation with heart rates up to the 120s. He was evaluated for pulmonary embolism and the CTA of the chest showed no pulmonary embolism. He is on his full anticoagulation for his atrial fibrillation. He is very eager to go home today and I think that is a good plan for him. We also know that he has hyperlipidemia as problem and he is taking his simvastatin once again. He has hypothyroidism and is on replacement for that as well. He has significant reactive airways disease and takes his inhalers for those problems I have told him to call our office any time over the weekend or later when he is having any issues and we can call him back. He knows ai will be on-call All weekend. Plan: 06/29/16 11:10 06/29/16 11:15 Subjective: He has significant coronary artery disease. He is not having chest pain. He was having shortness of breath. He has received a stent to his left anterior descending artery and his circumflex yesterday. He has no problem with his access site. He has no shortness of breath. He has ongoing sinus and allergy issues which bother him a great deal. He has no nausea vomiting He is not having shortness of breath He is not having peripheral edema. He is staying very active inside his hospital room and would like to go home and do more Objective: Vital Signs Temp Pulse Resp BP Pulse Ox 36.6 C 83 16 115/83 H 92 06/29/16 08:00 06/29/16 08:00 06/29/16 08:00 06/29/16 08:00 06/29/16 08:00 Laboratory Results 06/29/16 03:50 06/29/16 03:50 06/28/16 06/29/16 06/30/16 05:59 05:59 05:59 Intake Total 840 400 Output Total 600 1370 325 Balance 240 -970 -325 PT 15.1 SEC (12.0-15.0) H 06/28/16 03:52 INR 1.19 (0.83-1.16) H 06/28/16 03:52 Laboratory Tests 06/28/16 03:52 Cholesterol 125 L LDL Cholesterol, Calc 69 L HDL Cholesterol 35 L Physical Exam - Physical Exam General Appearance: alert, no apparent distress Neck: non-tender, supple Respiratory: decreased breath sounds, rhonchi Cardiac/Chest: systolic murmur, irregularly irregular, No regular rate, rhythm, No edema, No gallop, No JVD Abdomen: non-tender, soft, No organomegaly Skin: warm/dry Extremities: No pedal edema Neuro/Psych: alert, normal mood/affect ICD10 Worksheet Patient Problems: Problems Problem Status Onset Atrial fibrillation with RVR Acute Congestive cardiac failure Acute Dyspnea Acute Hyperkalemia Acute Near syncope Acute New onset atrial fibrillation Acute Lumbar stenosis Acute
--- NOTE | 2016-07-01 07:29 | CPEKG ---
Heart Rate: 74 RR Interval: 811 QRSD Interval: 114 QT Interval: 416 QTC Interval: 462 QRS [place]: -52 T Wave [place]: 110 EKG Severity - ABNORMAL ECG - EKG Impression: INCOMPLETE LEFT BUNDLE BRANCH BLOCK EKG Impression: LEFT VENTRICULAR HYPERTROPHY EKG Impression: INFERIOR INFARCT, OLD Electronically Signed For: Sharmila Jimenez 01-Jul-2016 07:29:50
== END 2016-06-29 12:46 | disposition home or self-care (01) | DRG 247 ==
LOC: EDUNIT# → F2W 06:25
PROVIDERS: ADMIT Internal Medicine; ATTEND Hospitalist
PROC: 4A023N7 Measurement of Cardiac Sampling and Pressure, Left Heart, Percutaneous Approach (ICD-10-PCS; 2016-06-26)
PROC: B2151ZZ Fluoroscopy of Left Heart using Low Osmolar Contrast (ICD-10-PCS; 2016-06-26)
PROC: B2111ZZ Fluoroscopy of Multiple Coronary Arteries using Low Osmolar Contrast (ICD-10-PCS; 2016-06-26)
PROC: B2111ZZ Fluoroscopy of Multiple Coronary Arteries using Low Osmolar Contrast (ICD-10-PCS; principal; 2016-06-28)
PROC: 027135Z Dilation of Coronary Artery, Two Arteries with Two Drug-eluting Intraluminal Devices, Percutaneous Approach (ICD-10-PCS; principal; 2016-06-28)
DX: I50.21 Acute systolic (congestive) heart failure (principal); I25.5 Ischemic cardiomyopathy; I48.91 Unspecified atrial fibrillation; Z53.09 Procedure and treatment not carried out because of other contraindication; I25.10 Atherosclerotic heart disease of native coronary artery without angina pectoris; Z95.1 Presence of aortocoronary bypass graft; I25.810 Atherosclerosis of coronary artery bypass graft(s) without angina pectoris; Z79.82 Long term (current) use of aspirin; J32.9 Chronic sinusitis, unspecified; Z79.52 Long term (current) use of systemic steroids; Z79.2 Long term (current) use of antibiotics; K22.2 Esophageal obstruction; M51.17 Intervertebral disc disorders with radiculopathy, lumbosacral region; N18.9 Chronic kidney disease, unspecified; E87.5 Hyperkalemia; E03.9 Hypothyroidism, unspecified; E78.5 Hyperlipidemia, unspecified; Z87.891 Personal history of nicotine dependence
CPT/HCPCS: 84481-90; 96374; A9500; C1725; C1769; C1874; C1887; C9600; J0583; J1644; J1650; J2250; J2704; J2785; J3010; Q9967

== ENCOUNTER 2016-07-21 19:05 | Observation (INO) | payer OTHER ==
--- NOTE | 2016-07-21 19:32 | CPEKG ---
Heart Rate: 75 RR Interval: 800 QRSD Interval: 114 QT Interval: 424 QTC Interval: 474 QRS [place]: -49 T Wave [place]: 110 EKG Severity - ABNORMAL ECG - EKG Impression: ATRIAL FIBRILLATION EKG Impression: INCOMPLETE LEFT BUNDLE BRANCH BLOCK EKG Impression: LVH WITH SECONDARY REPOLARIZATION ABNORMALITY EKG Impression: PROBABLE INFERIOR INFARCT, OLD Electronically Signed By: Armin Perez 21-Jul-2016 23:04:02
--- NOTE | 2016-07-21 19:36 | EDPHY ---
HPI/HX/ROS/PE/MDM Narrative: CHIEF COMPLAINT: Shortness of breath, fatigue. HPI: The patient is an 81-year-old male with an extensive cardiac history and status post cardiac stenting 2 weeks ago who presents with shortness of breath, lightheadedness, and fatigue that began this morning upon waking. He rested the rest of the day to no improvement. These symptoms are similar to two weeks ago when he needed stents but milder. He admits increased peripheral edema and intermittent productive cough. He denies chest pain, fever, recent sickness, nausea, vomiting. He did not have chest pain 2 weeks ago when he was stented. He is anticoagulated on Eliquis and Plavix. He is due to have a cardioversion and second echocardiogram soon. REVIEW OF SYSTEMS: Aside from elements discussed in the HPI, a comprehensive 10-point review of systems was reviewed and is negative. PMH: CABGx3, hyperlipidemia, hypothyroidism, back surgery, asthma, cardiac stents, atrial fibrillation. 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 PHYSICAL EXAM: General: Patient is alert, in no acute distress. ENT: Eyes are normal to inspection. ENT inspection normal. Neck: Normal inspection. Full range of motion. Respiratory: No respiratory distress. Breath sounds normal bilaterally. Cardiovascular: Regular rate and rhythm. Strong peripheral pulses. Abdomen: The abdomen is nontender to palpation. There are no peritoneal signs. There are normal bowel sounds. Back: Normal to inspection. No tenderness to palpation. Skin: Normal color. No rash. Warm and dry. Extremities: Normal appearance. Full range of motion. Neuro: Oriented x3. Normal motor function. Normal sensory function. Portions of this note were transcribed by an ED scribe. I personally performed the history, physical exam, and medical decision making; and confirm the accuracy of the information in the transcribed note. ED Course: An IV was established and labs ordered. Chest x-ray and EKG obtained. BNP elevated at 2680. Troponin elevated at 0.84. His last troponin was 0.131 . 2032: Consulted with Dr. Santiago, hospitalist. He accepts admission. 2109: Consulted with Dr. Yates, cardiology. EKG was ordered and interpreted by myself. Please see Mersive system for official reading. Study: PA and Lateral Chest X-ray Indication: Shortness of breath. Results: I viewed the images myself on the PACS system. The radiologist interpretation is: Cardiomegaly with no significant change in peribronchial thickening most likely related to mild fluid overload. MDM: This patient presents with weakness, SOB in the setting of an elevated troponin and known CAD with recent intervention. He needs admission to exclude ACS, CHF , dissection, possible infectious source. - Data Points Laboratory Results: Laboratory Results 07/21/16 19:45 07/21/16 19:45 07/21/16 07/21/16 07/21/16 19:45 19:45 19:45 WBC 4.94 10^3/uL 10^3/uL (3.80-9.50) RBC 4.29 10^6/uL L 10^6/uL (4.40-6.38) Hgb 14.7 g/dL g/dL (13.7-17.5) Hct 42.5 % % (40.0-51.0) MCV 99.1 fL fL (81.5-99.8) MCH 34.3 pg H pg (27.9-34.1) MCHC 34.6 g/dL g/dL (32.4-36.7) RDW 14.5 % % (11.5-15.2) Plt Count 136 10^3/uL L 10^3/uL (150-400) MPV 9.9 fL fL (8.7-11.7) Neut % (Auto) 55.1 % % (39.3-74.2) Lymph % (Auto) 27.5 % % (15.0-45.0) Webb % (Auto) 10.9 % % (4.5-13.0) Eos % (Auto) 5.1 % % (0.6-7.6) Baso % (Auto) 0.8 % % (0.3-1.7) Nucleat RBC Rel Count 0.0 % % (0.0-0.2) Absolute Neuts (auto) 2.72 10^3/uL 10^3/uL (1.70-6.50) Absolute Lymphs (auto) 1.36 10^3/uL 10^3/uL (1.00-3.00) Absolute Monos (auto) 0.54 10^3/uL 10^3/uL (0.30-0.80) Absolute Eos (auto) 0.25 10^3/uL 10^3/uL (0.03-0.40) Absolute Basos (auto) 0.04 10^3/uL 10^3/uL (0.02-0.10) Absolute Nucleated RBC 0.00 10^3/uL 10^3/uL (0-0.01) Immature Gran % 0.6 % % (0.0-1.1) Immature Gran # 0.03 10^3/uL 10^3/uL (0.00-0.10) PT 17.3 SEC H SEC (12.0-15.0) INR 1.42 H (0.83-1.16) APTT 36.9 SEC SEC (23.0-38.0) Sodium 137 mEq/L mEq/L (134-144) Potassium 4.8 mEq/L mEq/L (3.5-5.2) Chloride 105 mEq/L mEq/L (97-110) Carbon Dioxide 21 mEq/l L mEq/l (22-31) Anion Gap 11 mEq/L mEq/L (8-16) BUN 32 mg/dL H mg/dL (7-23) Creatinine 1.4 mg/dL H mg/dL (0.7-1.3) Estimated GFR 49 Glucose 121 mg/dL H mg/dL (70-100) Calcium 9.1 mg/dL mg/dL (8.5-10.4) Troponin I 0.084 ng/mL H ng/mL (0-0.034) NT-Pro-B Natriuret Pep 2680 pg/mL H pg/mL (0-450) General Time Seen by Provider: 07/21/16 19:28 Initial Vital Signs: Initial Vital Signs Temperature (C) 36.4 C 07/21/16 19:12 Heart Rate 91 07/21/16 19:12 Respiratory Rate 16 07/21/16 19:12 Blood Pressure 143/82 H 07/21/16 19:12 O2 Sat (%) 95 07/21/16 19:12 O2 Delivery Mode Room Air Allergies/Adverse Reactions: levofloxacin [From Levaquin] Allergy (Severe, Verified 07/21/16 22:20) Other-Enter Comments Home Medications: Medication Instructions Recorded Thyroid [[place] Thyroid 60 MG (*)] 120 mg PO DAILY06 12/28/12 Albuterol [Proventil Inhaler HFA 2 puffs IH PRN PRN 06/24/16 (*)] Aspirin EC [Aspirin EC 81 mg (*)] 81 mg PO HS 06/24/16 Fluticasone Nasal [Flonase Nasal 2 sprays EACHNARE DAILY 06/24/16 Evans] Levothyroxine [Synthroid 50 mcg 50 mcg PO DAILY06 06/24/16 (*)] Zolpidem Tartrate [Ambien 5MG (*)] 2.5 mg PO HS PRN 06/24/16 Apixaban [Eliquis] 5 mg PO BID #60 tab 06/29/16 Clopidogrel Bisulfate [Plavix (*)] 75 mg PO DAILY #30 tab 06/29/16 Lisinopril [Zestril 2.5 mg (*)] 2.5 mg PO HS #30 tab 06/29/16 Atorvastatin Calcium [Lipitor 40 40 mg PO HS 07/21/16 mg (*)] Etodolac [ETODOLAC] 400 mg PO BID 07/21/16 Gabapentin 100 - 200 mg PO HS 07/21/16 Testosterone [Androderm] 1 patch TP HS 07/21/16 Bisoprolol Fumarate [Zebeta (*)] 2.5 mg PO DAILY #15 tab 07/22/16 Departure - Departure Disposition: [facility] Inpatient Acute Clinical Impression: Shortness of breath, Cardiomegaly, Elevated troponin Fatigue Qualifiers: Fatigue type: unspecified Qualified Code(s): R53.83 - Other fatigue Condition: Fair Report Scribed for: Armin Perez Report Scribed by: Romero Watson Date of Report: 07/21/16 Time of Report: 20:25
[2016-07-21 19:54] LABS: % IMMATURE GRANULYOCYTES 0.6 % (0.0-1.1); ABSOLUTE IMMATURE GRANULOCYTES 0.03 10^3/uL (0.00-0.10); ADD DIFF? NO; ADD MORPH? NO; ADD SCAN? NO; ATYPICAL LYMPHOCYTE FLAG 50 (0-99); FRAGMENT RBC FLAG 0 (0-99); HEMATOCRIT 42.5 % (40.0-51.0); HEMOGLOBIN 14.7 g/dL (13.7-17.5); LEFT SHIFT FLG 0 (0-99); LIPEMIA HEMOLYSIS FLAG 90 (0-99); MEAN CELL HEMOGLOBIN 34.3 pg (27.9-34.1); MEAN CELL HEMOGLOBIN CONCENTR. 34.6 g/dL (32.4-36.7); MEAN CELL VOLUME 99.1 fL (81.5-99.8); MEAN PLATELET VOLUME 9.9 fL (8.7-11.7); PLATELET CLUMPS FLAG 0 (0-99); PLATELET COUNT 136 10^3/uL (150-400); RED BLOOD CELL COUNT 4.29 10^6/uL (4.40-6.38); RED CELL DISTRIBUTION WIDTH 14.5 % (11.5-15.2)
[2016-07-21 20:03] LABS: INR 1.42 (0.83-1.16); PROTIME(PATIENT) 17.3 SEC (12.0-15.0)
[2016-07-21 20:04] LABS: APTT 36.9 SEC (23.0-38.0)
[2016-07-21 20:10] LABS: ANION GAP 11 mEq/L (8-16); CALCIUM 9.1 mg/dL (8.5-10.4); CARBON DIOXIDE 21 mEq/l (22-31); CHLORIDE 105 mEq/L (97-110); CREATININE 1.4 mg/dL (0.7-1.3); GLOMERULAR FILTRATION RATE 49; GLUCOSE 121 mg/dL (70-100); POTASSIUM 4.8 mEq/L (3.5-5.2); SODIUM 137 mEq/L (134-144)
[2016-07-21 20:22] LABS: TROPONIN I 0.084 ng/mL (0-0.034)
[2016-07-21] MEDS ORDERED: CARVEDILOL 6.25 MG TAB PO SCH (21:04)
[2016-07-21] MEDS ORDERED: ONDANSETRON 4 MG/2 ML VIAL IVP PRN (21:13)
[2016-07-21] MEDS ORDERED: oxyCODONE IR 5 MG TAB PO PRN (21:13)
[2016-07-21] MEDS ORDERED: ONDANSETRON DISINTEGRATING 4 MG TAB PO PRN (21:13)
[2016-07-21] MEDS ORDERED: ACETAMINOPHEN 325 MG TAB PO PRN (21:13)
[2016-07-21] MEDS ORDERED: APIXABAN 5 MG TAB PO SCH (21:30)
--- NOTE | 2016-07-21 21:52 | GHP ---
[f rep st] HISTORY AND PHYSICAL DATE OF ADMISSION: 07/21/2016 CHIEF COMPLAINT: Fatigue. HISTORY OF PRESENT ILLNESS: This is an 81-year-old man with a recent history of stents to his LAD, as well as his left circumflex, presents with fatigue. This started this morning. It has been associated with some shortness of breath. No chest pain. This feels similar to when he presented to the hospital on his last admission, which resulted in 2 coronary stents. He has a history of a CABG about 3-1/2 years ago. He has been compliant with all his medications. He has been in atrial fibrillation. Cardiology was unable to complete a FLAKITO on his last admission, thus he has been anticoagulated and had anticipated a cardioversion tomorrow. On his last hospitalization, he underwent stents to his LAD, as well as his left circ. It was noted that his ALAS was atretic and likely never took to the LAD. He also had another graft that was no longer patent. PAST MEDICAL/SURGICAL HISTORY: 1. Coronary artery disease, as above. 2. Ischemic cardiomyopathy with an EF of 15%. 3. History of a knee infection requiring long-term Rocephin. 4. Hypothyroid. 5. Osteoarthritis. 6. Degenerative disk disease. 7. Left foot drop. 8. Lumbar spinal surgeries. 9. Other orthopedic surgeries. MEDICATIONS: Please see medication reconciliation. ALLERGIES: No known drug allergies. SOCIAL HISTORY: He quit smoking greater than 35 years ago. He occasionally drinks alcohol. He lives with his . FAMILY HISTORY: Coronary artery disease runs in the family. REVIEW OF SYSTEMS: A 10-point review of systems is conducted and is negative except per HPI. PHYSICAL EXAM: VITAL SIGNS: Blood pressure 122/79, heart rate 75, respiration rate 21, saturating 94% on room air, temperature is 36.4. GENERAL: The patient is a pleasant man who is laying in bed, appears comfortable, in no acute distress. HEENT: Shows him to be normocephalic, atraumatic. CARDIOVASCULAR: Exam shows irregularly irregular. There are no murmurs, rubs, or gallops. PULMONARY: Lungs clear to auscultation bilaterally. ABDOMEN: Soft, nontender, nondistended. SKIN: Shows no rash. : Shows no [place]. NEUROLOGIC: Shows him to be alert and oriented x3. EXTREMITIES: He is moving all extremities. PSYCHIATRIC: Shows normal mood and affect. LABS: Platelets are 136. INR is 1.4. Creatinine is 1.4. BNP is 2680. Urinalysis shows 2+ urobilinogen. DATA: 1. I discussed this with Dr. Perez in the emergency department. Will admit to telemetry. 2. I personally viewed and interpreted his chest x-ray. This shows cardiomegaly with possible mild pulmonary edema. 3. EKG, which I personally viewed and interpreted, is unchanged from his oldest atrial fibrillation. He has an incomplete left bundle branch block pattern. IMPRESSION/PLAN: An 81-year-old man with recent two-vessel PCI presents with fatigue. 1. Fatigue/elevated troponin: Similar to how he felt on his previous admission. We will trend his troponins, recheck an EKG in the morning, place him on telemetry. Cardiology has been consulted, further workup per Cardiology. 2. Ischemic cardiomyopathy with an EF of 15%: He is currently on Eliquis. Will also continue his other cardiac medications including lisinopril, Coreg. 3. Coronary artery disease: Will continue his cardiac medications including aspirin, Plavix, statin, Coreg, lisinopril. 4. Atrial fibrillation: Had a planned cardioversion for tomorrow. He is currently on Eliquis. He is rate controlled. 5. Code status: He would like to be full code. /[id number]/MODL MTDD
[2016-07-21] MEDS ORDERED: GABAPENTIN 100 MG CAP PO SCH ×2 (22:48→22:52)
[2016-07-21] MEDS ORDERED: ZOLPIDEM TARTRATE 5 MG TAB PO PRN (22:48)
[2016-07-21] MEDS ORDERED: LISINOPRIL 2.5 MG TAB PO SCH (22:48)
[2016-07-21] MEDS ORDERED: ATORVASTATIN CALCIUM 40 MG TAB PO SCH (22:48)
[2016-07-21] MEDS ORDERED: ALBUTEROL 60 PUFFS/8 GM MDI IH PRN (22:48)
[2016-07-21] MEDS ORDERED: ASPIRIN EC 81 MG TAB PO SCH (22:50)
[2016-07-21] MEDS ORDERED: GABAPENTIN 300 MG CAP ONE (23:13)
[2016-07-22 04:55] LABS: % IMMATURE GRANULYOCYTES 0.5 % (0.0-1.1); ABSOLUTE IMMATURE GRANULOCYTES 0.02 10^3/uL (0.00-0.10); ADD DIFF? NO; ADD MORPH? NO; ADD SCAN? NO; ATYPICAL LYMPHOCYTE FLAG 70 (0-99); FRAGMENT RBC FLAG 0 (0-99); HEMATOCRIT 38.8 % (40.0-51.0); HEMOGLOBIN 13.3 g/dL (13.7-17.5); LEFT SHIFT FLG 0 (0-99); LIPEMIA HEMOLYSIS FLAG 90 (0-99); MEAN CELL HEMOGLOBIN 34.2 pg (27.9-34.1); MEAN CELL HEMOGLOBIN CONCENTR. 34.3 g/dL (32.4-36.7); MEAN CELL VOLUME 99.7 fL (81.5-99.8); MEAN PLATELET VOLUME 10.4 fL (8.7-11.7); PLATELET CLUMPS FLAG 0 (0-99); PLATELET COUNT 132 10^3/uL (150-400); RED BLOOD CELL COUNT 3.89 10^6/uL (4.40-6.38); RED CELL DISTRIBUTION WIDTH 14.3 % (11.5-15.2)
[2016-07-22 05:12] LABS: ANION GAP 9 mEq/L (8-16); CARBON DIOXIDE 22 mEq/l (22-31); CHLORIDE 108 mEq/L (97-110); CREATININE 1.2 mg/dL (0.7-1.3); GLOMERULAR FILTRATION RATE 58; GLUCOSE 90 mg/dL (70-100); POTASSIUM 4.4 mEq/L (3.5-5.2); SODIUM 139 mEq/L (134-144)
[2016-07-22 05:20] LABS: TROPONIN I 0.109 ng/mL (0-0.034)
[2016-07-22] MEDS ORDERED: LEVOTHYROXINE 50 MCG TAB PO SCH (06:00)
[2016-07-22] MEDS ORDERED: THYROID 60 MG TAB PO SCH (06:00)
[2016-07-22] MEDS ORDERED: CARVEDILOL 3.125 MG TAB PO SCH (08:00)
[2016-07-22 08:10] VITALS: RESP 16; O2SAT 91
--- NOTE | 2016-07-22 08:38 | CPEKG ---
Heart Rate: 54 RR Interval: 1111 QRSD Interval: 116 QT Interval: 484 QTC Interval: 459 QRS [place]: -52 T Wave [place]: 114 EKG Severity - ABNORMAL ECG - EKG Impression: ATRIAL FLUTTER, A-RATE 306 EKG Impression: INCOMPLETE LEFT BUNDLE BRANCH BLOCK EKG Impression: PROBABLE LEFT VENTRICULAR HYPERTROPHY Electronically Signed By: Arnulfo Ortiz 22-Jul-2016 14:40:46
[2016-07-22] MEDS ORDERED: CLOPIDOGREL BISULFATE 75 MG TAB PO SCH (09:00)
[2016-07-22] MEDS ORDERED: FLUTICASONE NASAL 120 SPRAYS/16 GM MDI EACHNARE SCH (09:00)
[2016-07-22] MEDS ORDERED: APIXABAN 5 MG TAB PO SCH (09:00)
[2016-07-22 11:39] VITALS: BP 90/55; PULSE 75; TEMP 97.7
--- NOTE | 2016-07-22 11:51 | ECHO ---
[id number] + + [address] : : [place] [address] : : [phone] + + Adult Echocardiographic Report + -------+ :Name: ROSE MARIE HOUSE DStudy Date: 07/22/2016 10:38 AM : : Hospital Admission Number: [id number] Locati on: 210: :: 1935 Gender: Male Height: 67 in : :Age: 81 yrs Race: WH,White Weight: 157 lb : :Reason For Study: Eval LV Fx : : BSA: 1.8 meter s2 : :History: Hx of atrial fibrillation, rayna : + -------+ MMode/2D Measurements \T\ Calculations IVSd: 1.6 cm LVIDd: 4.9 cm FS: 15.5 % MV Diam: 3.1 cm LVPWd: 1.5 cm LVIDs: 4.2 cm EDV(Teich): 115.5 ml ESV(Teich): 77.8 ml EF(Teich): 32.6 % Ao root diam: LVOT diam: 2.1 cmLVLd ap4: 7.9 cm SV(MOD-sp4): 3.9 cm LVOT area: EDV(MOD-sp4): 40.0 ml ACS: 1.8 cm 3.5 cm2 96.0 ml LA dimension: LVLs ap4: 6.8 cm 4.9 cm ESV(MOD-sp4): 56.0 ml EF(MOD-sp4): 41.7 % Normal Measurement Values: + + :LVIDd (3.5-5.7cm) IVSd (0.6-1.1cm) LVPWd (0.6-1.1cm) Aortic Root (2.0-3.7cm)Left Atrium (1.5-4.0cm): :LV Vol(d) (76-115ml) LV Vol(s) (29-48ml) Ejec Fraction (50-65%)PV Cristhian (0.6- 1.2m/s) TV Cristhian (0.4-1.0m/s) : :MV E Cristhian (0.8-1.0m/s)MV A Cristhian (0.3-1.0m/s)LVOT Cristhian (0.7-1.2m/s) Asc Ao Cristhian ( 0.9-1.8m/s) : + + Doppler Measurements \T\ Calculations MV E max cristhian: MV area (1 diam): Ao mean PG: LV V1 mean P.0 cm/sec 7.6 cm2 3.1 mmHg 0.82 mmHg MV Flow area Ao V2 mean: LV V1 mean: 80.7 cm/sec 41.5 cm/sec (1diam): 7.6 cm2 Ao V2 VTI: LV V1 VTI: 11.7 cm 20.2 cm ZHANNA(I,D): 2.0 cm2 MR max cristhian: SV(LVOT): 40.5 ml PA V2 max: TR max cristhian: 411.3 cm/sec 78.7 cm/sec 294.5 cm/sec MR max PG: PA max PG: TR max P.7 mmHg 2.5 mmHg 34.7 mmHg RAP systole: 5.0 mmHg RVSP(TR): 39.7 mmHg Left Ventricle The left ventricle is normal in size. There is mild concentric left ventricular hypertrophy. There is Doppler evidence for diastolic dysfunction. Ejection Fraction = 30-35%. There is inferior wall hypokinesis. Right Ventricle The right ventricle is normal in size and function. Atria The left atrium is severely dilated. The right atrium is moderate to severely dilated. Mitral Valve There is mild mitral annular calcification. There is no evidence of mitral valve prolapse. There is no mitral valve stenosis. There is moderate mitral regurgitation. Tricuspid Valve There is mild tricuspid regurgitation. Right ventricular systolic pressure is 40mmHg. There is Doppler evidence for mild pulmonary hypertension. Aortic Valve Mild Aortic Valve Calcification. The aortic valve opens well. There is no aortic stenosis. Trace aortic regurgitation. Pulmonic Valve The pulmonic valve is normal in structure and function. There is no pulmonic valvular regurgitation. Great Vessels The aortic root is normal size. Pericardium/Pleural There is no pericardial effusion. Conclusion There is mild concentric left ventricular hypertrophy. There is Doppler evidence for diastolic dysfunction. Ejection Fraction = 30-35%. There is inferior wall hypokinesis. The left atrium is severely dilated. The right atrium is moderate to severely dilated. There is mild mitral annular calcification. There is moderate mitral regurgitation. There is mild tricuspid regurgitation. Right ventricular systolic pressure is 40mmHg. There is Doppler evidence for mild pulmonary hypertension. Mild Aortic Valve Calcification The aortic valve opens well. Trace aortic regurgitation. There is no pericardial effusion. Final Reading Physician: Sylvia Holland signed on 07/22/2016 11:50 AM Ordering Physician: Julio Santiago Performed By: Kyeur Umanzor, SOCRATESCS
--- NOTE | 2016-07-22 12:24 | GDS ---
[f rep st] DISCHARGE SUMMARY ALL DIAGNOSES: 1. Fatigue/shortness of breath similar to his previous presentation. 2. Congestive heart failure with severe systolic dysfunction, ejection fraction improved from 15% t o 30%. 3. Coronary artery disease, status post a stent to his left anterior descending and left circumflex 3 weeks ago. 4. Hypothyroid. 5. Osteoarthritis. 6. Atrial fibrillation, on Eliquis, rate controlled. HOSPITAL COURSE: This is an 81-year-old man, admitted with worsening fatigue and shortness of breat h. Notably, these symptoms were similar to what caused him to present to the hospital in early . On that hospitalization, he was noted to have an EF of 15%, underwent catheterization, and go t drug-eluting stents in his LAD, as well as left circ. He has been evaluated here so far with an e chocardiogram, which does show an improvement of his EF to 30% to 35%. He had been placed on approp riate medical therapy. He did not tolerate his Coreg well, will change him to bisoprolol starting t omorrow. Discussed at length mine and Dr. Molina's desire for him to have a nuclear stress test as an inpatient. Unfortunately, he had caffeine this morning thus, he cannot get it today. He refuses to stay in the hospital another night for this. He will set this up as an outpatient. Again, I ur ged him to stay for this test as I think it is important and I told him the dangers of not doing thi s as an inpatient. These would include worsening heart disease and . He understands this and has the capacity to make the decision to leave the hospital thus, will discharge him. He will follo w up with Dr. Rowe. /[id number]/MODL
--- NOTE | 2016-07-22 14:12 | SOAPPROG ---
[facility] Progress Note Assessment/Plan: Assessment: The patient has coronary artery disease. Patient has atrial fibrillation The patient has dyslipidemia The patient is not ischemic cardiomyopathy The patient has heart failure with reduced ejection fraction. The patient may also have cardiomyopathy of other causes beyond ischemic cardiomyopathy. The patient has been having hard time with Cardizem. He is having a arrhythmias with his rhythm dropping to 40 without symptoms. I have talked to him extensively about possibly having electrophysiology see him. Down the road he may be a candidate for a defibrillator but it is too early to determine that right now. I discussed with him seeing the electrophysiology service today but he is not interested in that. Full consultation is been dictated in the reader is referred to that. The patient has been having trouble with his Cardizem and believes that is causing central nervous system symptoms. We then switched to bisoprolol after missing several doses of Cardizem. We discussed doing a transesophageal echocardiogram with Gastroenterology plaquing placing the scope because of his history of strictures. He is not interested in that at this time. No transesophageal echocardiogram would allow us to proceed with cardioversion. Does not want to consider pacemaker till after he has been cardioverted out of atrial fibrillation. He feels like all his troubles may go and does not want to deal with a lower heart rate at this point time. I have talked to him extensively about often need for pacemaking in a patient who requires beta- blockers in people his age there is such a thing as sick sinus syndrome going on or other issues with his conduction system. He wants to wait and we will do that. He does need to maintain beta chichi and we will start with bisoprolol 2.[address] of his carvedilol. Also he has a history of asthma is using inhalers and bisoprolol may be much more safe and less bothersome for him than metoprolol. He and I discussed the concept doing a CT scan for left atrial appendage thrombi which he had discussed before with others. I discussed this with him and told him that I talked Radiology and we cannot find any good references for doing it this way and that I have I would much prefer that he either get a have a FLAKITO procedure or wait the 6 weeks. I discussed this also with electrophysiology and they do not recommend doing a CT to look for atrial appendage clots as a substitute for transesophageal echocardiogram. all all his questions have been answered. I have discussed this with he and his . I have discussed this with nursing staff. I discussed it with his hospitalist. Plan: 07/22/16 14:43 Objective: Vital Signs Temp Pulse Resp BP Pulse Ox 36.5 C 75 16 90/55 L 91 L 07/22/16 11:38 07/22/16 11:38 07/22/16 11:38 07/22/16 11:38 07/22/16 11:38 Laboratory Results 07/22/16 04:04 07/22/16 04:04 07/21/16 07/22/16 07/23/16 05:59 05:59 05:59 Intake Total 200 125 Output Total 900 675 Balance -700 -550 PT 17.3 SEC (12.0-15.0) H 07/21/16 19:45 INR 1.42 (0.83-1.16) H 07/21/16 19:45 ICD10 Worksheet Patient Problems: Problems Problem Status Onset Atrial fibrillation with RVR Acute Cardiomegaly Acute Chronic Disease Mgmt/Transitional Care Acute Congestive cardiac failure Acute Dyspnea Acute Elevated troponin Acute Fatigue Acute Hyperkalemia Acute Lumbar stenosis Acute Near syncope Acute New onset atrial fibrillation Acute Shortness of breath Acute
--- NOTE | 2016-07-22 15:56 | GCON ---
[f rep st] CONSULTATION CARDIOVASCULAR CONSULTATION HISTORY: The patient's chief complaint is he came to the hospital because he felt poorly. He has been seeing Dr. Kishor Rowe since he was admitted to the hospital 1 month ago for also feeling poorly. He was found to have congestive heart failure. He had heart failure with reduced ejection fraction, and his ejection fraction was in the range of 15%. The last previous ejection fraction was over a year before that, and it was close to normal range. During that hospitalization, he had a coronary angiogram. He has known coronary artery disease with a history of bypass surgery. He was found to have significant LAD and circumflex disease and received 2 stents without any problems. He did not have any chest tightness, jaw pain, arm pain, shortness of breath, orthopnea, or PND when he came into the hospital on the last admission 1 month ago. His coronary angiogram was done and completed on 06/28, with the stenting, and the next day, he started taking Eliquis as full anticoagulation for the atrial fibrillation he presented with at that time. His atrial fibrillation was rate controlled, and he has been in cardiac rehab, occasionally having a rate up to 150 with bursts of exercise, but normally his heart rate is below 100, controlled on Coreg for rate control. He is taking as well his standard heart failure medications and is being followed closely by [facility]. He has been home and doing well. I have talked to his as well, to get more history from her, and they are consistent. He has not had fevers, chills, cough , sputum production, upper respiratory tract symptoms, signs of infection other places, such as bladder, etc. He has no new rashes or other issues. He has been taking his medications and doing well with that. He does not like Coreg's effect on his central nervous system. He feels like it affects his thinking. He has known coronary disease. He has hyperlipidemia. He is on the Eliquis for atrial fibrillation. He has had cardiovascular stenting and bypass surgery, as noted. He does not have hyperuricemia. He has a history of hypertension. He has no history of diabetes. SURGICAL HISTORY: Status post bypass surgery with Dr. Piper. Status post back surgery. Status post . REVIEW OF SYSTEMS: 12-point review of systems negative, except for the history above, history of asthma. MEDICATIONS: Iyaf-hwv-ashlbro medicines, [place] Thyroid, Proventil, Androderm, aspirin, Flonase, Neurontin, Atrovent, Synthroid, Ambien, Eliquis, aspirin, Lipitor, Coreg, Zyrtec, Plavix, Vibramycin, Zestril. FAMILY HISTORY: No family history of premature coronary disease. PHYSICAL EXAMINATION: VITAL SIGNS: His blood pressure is 130/77, heart rate 70. Respiratory rate 12. HEENT: Pupils are equal and reactive. Mucous membranes of the mouth moist. CARDIOVASCULAR: S1, S2 irregularly irregular. Soft systolic murmur at left sternal border. PULMONARY: Rhonchi. No rales, wheezing, or dullness. ABDOMEN: Soft, nontender, without masses. EXTREMITIES : No edema, inflammation, or ulceration. NEUROLOGIC: Cranial nerves 2-12 appear to be normal. He is cooperative and helpful. PSYCH: No obvious anxiety or depression. SKIN: Age-related changes. LYMPHATICS: No obvious lymphadenopathy. LABORATORY DATA: White count 4.9, hematocrit 42, platelets 136. Sodium 137, potassium 4.8, chloride 105, CO2 21, BUN 32, creatinine 1.4, glucose 121, calcium 9.1. Troponin 0.084. BNP 2680. Chest x-ray did not show acute changes. I cannot get Adobe to run, so I cannot see the EKGs, but the reading on the EKGs was that the patient has incomplete left bundle branch block, question of left ventricular hypertrophy, and fib. Chest x-ray shows cardiomegaly, with no significant change. Echocardiographic study shows ejection fraction 30% to 35%, inferior hypokinesis , left atrium severely dilated, right atrium moderately to severely dilated, moderate MR, mild TR, diastolic dysfunction, RV systolic pressure 40, mild aortic valve calcification, trace AI. ASSESSMENT AND PLAN: 1. Coronary artery disease. 2. Recent PCI. 3. Dyslipidemia. 4. Atrial fibrillation. 5. Esophageal stricture history. The patient was coming in today to have his atrial fibrillation cardioverted. He, however, came to the hospital yesterday due to feeling poorly. He remains in atrial fibrillation, but he is totally rate controlled, and in fact, his heart rate at times gets too low, but it has never in the hospital been over 95. It has been down in the 40s several times, and he had a 3-second pause. All of that was asymptomatic. He has been on Coreg and it was recently increased to 6.25 twice a day from 3.125 twice a day. I have had many discussions with him and his , with the previous magnetic healer who has been taking care of him, and with the hospitalists about his care. We offered him the option of having gastroenterology place the transesophageal echocardiographic probe into his esophagus to try to look for clots and then proceed with cardioversion. He does not want to go through that procedure. Given his history of esophageal strictures, he has had a very hard time with these procedures. It was recently tried to pass the FLAKITO probe and that was unsuccessful. He does not want to try any further right now. What he wants to do is continue medical therapy, stay on his Eliquis, and when he is 6 weeks after starting Eliquis, which was on 06/29/16, he would then like to have cardioversion done, but does not want to go through an esophageal procedure of any kind. He will continue his Eliquis. If he has troubles he will let me know. He has ongoing heart failure with a reduced ejection fraction, which is chronic. He is on good medical therapy for this and he is improving and not having symptoms of heart failure. I have answered all his questions and talked to him about heart failure. He is in the transitional care program. He has severe coronary artery disease with recent stenting. His nuclear stress test prior to that stenting was negative for ischemia. At this time, he has nothing to suggest he is having acute coronary syndrome or that his heart failure is worse, so we recommended that he do a nuclear stress test today, but he does not want to stay for that because he had caffeine this morning, so he is being discharged home and will get it as an outpatient. He wants to follow up with me, and I will see him in followup. He has significant pulmonary hypertension. He has significant mitral regurgitation. He has significant tricuspid regurgitation. We have gone around multiple times about how to cardiovert him, and I have discussed his case with the electrophysiology service. I offered him an electrophysiology consultation today, but he did not want that. He wants to stay with this program and go from there. He is at high risk of future events. He is aware of this, will stay with his , and let me know if anything changes. /[id number]/MODL MTDD
[2016-07-22] MEDS ORDERED: TESTOSTERONE TP SCH ×2 (21:00)
[2016-07-22] MEDS ORDERED: GABAPENTIN 300 MG CAP PO SCH (21:00)
== END 2016-07-22 12:50 | disposition home or self-care (01) ==
LOC: F2W 21:21
PROVIDERS: ADMIT Student in an Organized Health Care Education/Training Program; ATTEND Student in an Organized Health Care Education/Training Program
DX: I50.22 Chronic systolic (congestive) heart failure (principal); I25.10 Atherosclerotic heart disease of native coronary artery without angina pectoris; I25.5 Ischemic cardiomyopathy; I48.91 Unspecified atrial fibrillation; E78.5 Hyperlipidemia, unspecified; Z95.5 Presence of coronary angioplasty implant and graft; E03.9 Hypothyroidism, unspecified; Z79.01 Long term (current) use of anticoagulants
CPT/HCPCS: 71020; 93005; 93306; G0378

== ENCOUNTER → 2016-07-25 | Outpatient (CLI) | payer OTHER | LOC: BHFA 13:30 | PROVIDERS: ATTEND Internal Medicine Cardiovascular Disease | DX: I25.10 Atherosclerotic heart disease of native coronary artery without angina pectoris (principal) | CPT/HCPCS: 78452; 93017; A9500; J2785 ==

== ENCOUNTER 2016-08-12 06:53 | Day surgery (SDC) | payer OTHER ==
[2016-08-12] MEDS ORDERED: NS 500 ML IV ONE (06:58)
[2016-08-12] MEDS ORDERED: fentaNYL 100 MCG/2 ML INJ IVP ONE (06:58)
[2016-08-12] MEDS ORDERED: MIDAZOLAM 2 MG/2 ML VIAL IVP ONE (06:58)
[2016-08-12] MEDS ORDERED: PROPOFOL 200 MG/20 ML VIAL IVP ONE (06:58)
--- NOTE | 2016-08-12 07:18 | CPEKG ---
Heart Rate: 85 RR Interval: 706 QRSD Interval: 114 QT Interval: 388 QTC Interval: 462 QRS Daniel: -49 T Wave Daniel: 113 EKG Severity - ABNORMAL ECG - EKG Impression: ATRIAL FIBRILLATION EKG Impression: INCOMPLETE LEFT BUNDLE BRANCH BLOCK EKG Impression: LVH WITH SECONDARY REPOLARIZATION ABNORMALITY EKG Impression: PROBABLE INFERIOR INFARCT, OLD EKG Impression: CONSIDER ANTERIOR INFARCT Electronically Signed By: Allen Charlton 12-Aug-2016 08:31:16
[2016-08-12 07:47] LABS: INR 1.4 (0.83-1.16); PROTIME(PATIENT) 17.1 SEC (12.0-15.0)
[2016-08-12 07:48] LABS: APTT 34.6 SEC (23.0-38.0)
[2016-08-12 07:50] LABS: ANION GAP 10 mEq/L (8-16); CALCIUM 9.4 mg/dL (8.5-10.4); CARBON DIOXIDE 22 mEq/l (22-31); CHLORIDE 108 mEq/L (97-110); CREATININE 1.4 mg/dL (0.7-1.3); GLOMERULAR FILTRATION RATE 49; GLUCOSE 102 mg/dL (70-100); POTASSIUM 4.6 mEq/L (3.5-5.2); SODIUM 140 mEq/L (134-144)
[2016-08-12] MEDS ORDERED: LIDOCAINE 2% 5 ML SDV ONE (07:59)
--- NOTE | 2016-08-12 09:01 | CPEKG ---
Heart Rate: 70 RR Interval: 857 P-R Interval: 240 QRSD Interval: 118 QT Interval: 416 QTC Interval: 449 P [place]: 43 QRS [place]: -47 T Wave [place]: 115 EKG Severity - ABNORMAL ECG - EKG Impression: SINUS ARRHYTHMIA, RATE 53-86 EKG Impression: FIRST DEGREE AV BLOCK EKG Impression: INCOMPLETE LEFT BUNDLE BRANCH BLOCK EKG Impression: LEFT VENTRICULAR HYPERTROPHY EKG Impression: INFERIOR INFARCT, OLD EKG Impression: CONSIDER ANTERIOR INFARCT EKG Impression: SINUS ARRHYTHMIA HAS REPLACED ATRIAL FIBRILLATION ON PRIOR ECG Electronically Signed By: Allen Charlton 12-Aug-2016 09:09:51
--- NOTE | 2016-08-12 09:09 | CPIP ---
[f rep st] INVASIVE CARDIAC PROCEDURE DATE OF PROCEDURE: 08/12/2016 PROCEDURE: Direct current cardioversion. INDICATIONS: Symptomatic atrial fibrillation. COMPLICATIONS: None. DESCRIPTION OF PROCEDURE: It was confirmed that the patient has been taking Eliquis as prescribed, uninterrupted, for 6 weeks. We, therefore, elected to not perform transesophageal echocardiogram. N.p.o. status was confirmed, informed consent obtained, and timeout performed. Sedation was provide d by Dr. Burr of the anesthesia service. The patient received a single 200 joule synchronized shock, which converted him from atrial fibrilla tion to normal sinus rhythm. A 12-lead EKG is pending. CONCLUSION: Successful direct current cardioversion. Continue Eliquis. Follow up with Dr. Molina or Dr. Kemp. Results discussed with the patient's . He is currently in stable condition. /[id number]/MODL
== END 2016-08-12 10:48 | disposition home or self-care (01) ==
LOC: FCATH 06:53
PROVIDERS: ATTEND Internal Medicine
PROC: 5A2204Z Restoration of Cardiac Rhythm, Single (ICD-10-PCS; principal; 2016-08-12)
DX: I48.91 Unspecified atrial fibrillation (principal); I25.10 Atherosclerotic heart disease of native coronary artery without angina pectoris; I10 Essential (primary) hypertension; Z95.1 Presence of aortocoronary bypass graft; G47.33 Obstructive sleep apnea (adult) (pediatric); E03.9 Hypothyroidism, unspecified; Z79.01 Long term (current) use of anticoagulants
CPT/HCPCS: J2704

== ENCOUNTER 2016-08-13 19:17 | Observation (INO) | payer OTHER ==
--- NOTE | 2016-08-13 19:39 | CPEKG ---
Heart Rate: 76 RR Interval: 789 P-R Interval: 252 QRSD Interval: 114 QT Interval: 424 QTC Interval: 477 P [place]: 21 QRS [place]: -44 T Wave [place]: 117 EKG Severity - ABNORMAL ECG - EKG Impression: SINUS RHYTHM EKG Impression: FIRST DEGREE AV BLOCK EKG Impression: INCOMPLETE LEFT BUNDLE BRANCH BLOCK EKG Impression: LVH WITH SECONDARY REPOLARIZATION ABNORMALITY Electronically Signed By: Riki Cooper 13-Aug-2016 20:47:10
--- NOTE | 2016-08-13 19:39 | EDPHY ---
H & P Stated Complaint: Hx CHF-feels SOB, cardioversion 08/12-Demar. Time Seen by Provider: 08/13/16 19:39 HPI/ROS: CHIEF COMPLAINT: Ongoing fatigue and dyspnea HISTORY OF PRESENT ILLNESS: The patient presents to the ED with complaints of ongoing fatigue and dyspnea. The patient has had a fairly complicated past medical history. He was seen in the ED in hospitalized nearly 2 months ago with fatigue and dyspnea during that time he was found to have coronary artery disease in atrial fibrillation. The patient did undergo stenting x2. He was started on Eliquis. He had been on Eliquis for 6 weeks and continue to be in atrial fibrillation. Secondary to his ongoing symptoms he underwent cardioversion yesterday. The patient has been in a sinus rhythm since that time. Patient reports that he felt worse today with symptoms of worsening dyspnea and generalized fatigue. The patient denies fever, dysuria or additional acute complaints. The patient contacted his regular linseed cake trimmer Ranulfo Molina who recommended that he take an extra dose of Lasix today which he did without improvement of his symptoms. The patient was referred to the ED secondary to ongoing symptoms. REVIEW OF SYSTEMS: A comprehensive 10 point review of systems is otherwise negative aside from elements mentioned in the history of present illness. Source: Patient Exam Limitations: No limitations - Personal History Current Tetanus/Diphtheria Vaccine: Unsure Current Tetanus Diphtheria and Acellular Pertussis (TDAP): Unsure Tetanus Vaccine Date: less than 10 years - Medical/Surgical History Hx Asthma: Yes Hx Chronic Respiratory Disease: No Hx Diabetes: No Hx Cardiac Disease: Yes Hx Renal Disease: No Hx Cirrhosis: No Hx Alcoholism: No Hx HIV/AIDS: No Hx Splenectomy or Spleen Trauma: No Other PMH: CABGX3, HYPERLIPIDEMIA, HYPOTHYROIDISM, BACK SURGERY, ASTHMA, multiple ortho surg, cardiac stents, - Social History Smoking Status: Former smoker - Physical Exam Exam: General Appearance: Alert, no distress Eyes: Pupils equal and round no pallor or injection ENT, Mouth: Mucous membranes moist Respiratory: There are no retractions, lungs are clear to auscultation Cardiovascular: Regular rate and rhythm Gastrointestinal: Abdomen is soft and nontender, no masses, bowel sounds normal Neurological: A&O, normal motor function, normal sensory exam, normal cranial nerves Skin: Warm and dry, no rashes Musculoskeletal: Neck is supple nontender Extremities: symmetrical, full range of motion Constitutional: Initial Vital Signs Temperature (C) 36.3 C 08/13/16 19:21 Heart Rate 81 08/13/16 19:21 Respiratory Rate 18 08/13/16 19:21 Blood Pressure 124/81 H 08/13/16 19:21 O2 Sat (%) 93 08/13/16 19:21 O2 Delivery Mode Room Air Allergies/Adverse Reactions: levofloxacin [From Levaquin] Allergy (Severe, Verified 08/13/16 19:27) Other-Enter Comments Quinolones Allergy (Verified 08/13/16 19:27) Home Medications: Medication Instructions Recorded Thyroid [[place] Thyroid 60 MG (*)] 120 mg PO DAILY06 12/28/12 Aspirin EC [Aspirin EC 81 mg (*)] 81 mg PO HS 06/24/16 Fluticasone Nasal [Flonase Nasal 2 sprays [place] DAILY 06/24/16 [place]] Levothyroxine [Synthroid 50 mcg 50 mcg PO DAILY06 06/24/16 (*)] Zolpidem Tartrate [Ambien 5MG (*)] 2.5 mg PO HS PRN 06/24/16 Clopidogrel Bisulfate [Plavix (*)] 75 mg PO DAILY #30 tab 06/29/16 Testosterone [Androderm] 1 patch TP HS 07/21/16 Apixaban [Eliquis] 2.5 mg PO BID 08/12/16 Metoprolol Tartrate 12.5 mg PO BID 08/12/16 Simvastatin 40 mg PO HS 08/12/16 hydrALAZINE 12.5 mg PO TID 08/12/16 ARMOUR THYROID 08/13/16 Ambien 08/13/16 Plavix 08/13/16 SIMVASTATIN 08/13/16 Synthroid 08/13/16 Medical Decision Making - Diagnostics EKG Interpretation: EKG: Complete interpretation has been separately recorded in the [facility] archive. Summary impression: Sinus rhythm Imaging: Imaging Impressions Chest X-Ray 08/13/16 19:40 Impression: 1. Cardiomegaly. 2. No pneumonia or pulmonary edema. ED Course/Re-evaluation: The patient presents to the ED with fatigue and dyspnea. The patient is status post cardioversion yesterday. He continues to be in a normal sinus rhythm. The patient has no significant hypoxemia. He denies significant weight gain. The patient has no evidence of a critical anemia. He has no evidence of acute renal insufficiency. The patient did take Lasix today without improvement of his symptoms. The patient does have a fairly significant cardiomyopathy with an ejection fraction of 15% documented on recent echocardiogram. The patient was observed in the emergency department without evidence of ectopy. I discussed the case with Dr. Ingrid Montano who is on-call with Cardiology. At this point time she does recommend admission to the hospitalist for further evaluation of his ongoing fatigue and fairly significant dyspnea on exertion. The patient will be admitted to the hospital for further evaluation. Dr. Montano has suggested the patient may be evaluated by Dr. Whalen the heart failure specialist at [facility]. Patient and his are amenable to admission for further evaluation of his ongoing fatigue and dyspnea. Differential Diagnosis: Differential diagnosis considered includes congestive heart failure, critical anemia, renal insufficiency, metabolic abnormality, dehydration, pneumonia - Data Points Laboratory Results: Laboratory Results 08/13/16 19:38 08/13/16 19:38 08/13/16 08/13/16 19:38 19:38 WBC 5.13 10^3/uL 10^3/uL (3.80-9.50) RBC 4.63 10^6/uL 10^6/uL (4.40-6.38) Hgb 15.5 g/dL g/dL (13.7-17.5) Hct 46.1 % % (40.0-51.0) MCV 99.6 fL fL (81.5-99.8) MCH 33.5 pg pg (27.9-34.1) MCHC 33.6 g/dL g/dL (32.4-36.7) RDW 14.4 % % (11.5-15.2) Plt Count 172 10^3/uL 10^3/uL (150-400) MPV 10.2 fL fL (8.7-11.7) Neut % (Auto) 52.6 % % (39.3-74.2) Lymph % (Auto) 32.2 % % (15.0-45.0) Morgan % (Auto) 10.1 % % (4.5-13.0) Eos % (Auto) 3.5 % % (0.6-7.6) Baso % (Auto) 1.0 % % (0.3-1.7) Nucleat RBC Rel Count 0.0 % % (0.0-0.2) Absolute Neuts (auto) 2.70 10^3/uL 10^3/uL (1.70-6.50) Absolute Lymphs (auto) 1.65 10^3/uL 10^3/uL (1.00-3.00) Absolute Monos (auto) 0.52 10^3/uL 10^3/uL (0.30-0.80) Absolute Eos (auto) 0.18 10^3/uL 10^3/uL (0.03-0.40) Absolute Basos (auto) 0.05 10^3/uL 10^3/uL (0.02-0.10) Absolute Nucleated RBC 0.00 10^3/uL 10^3/uL (0-0.01) Immature Gran % 0.6 % % (0.0-1.1) Immature Gran # 0.03 10^3/uL 10^3/uL (0.00-0.10) Sodium 137 mEq/L mEq/L (134-144) Potassium 4.2 mEq/L mEq/L (3.5-5.2) Chloride 98 mEq/L D mEq/L (97-110) Carbon Dioxide 24 mEq/l mEq/l (22-31) Anion Gap 15 mEq/L mEq/L (8-16) BUN 28 mg/dL H mg/dL (7-23) Creatinine 1.5 mg/dL H mg/dL (0.7-1.3) Estimated GFR 45 Glucose 107 mg/dL H mg/dL (70-100) Calcium 9.5 mg/dL mg/dL (8.5-10.4) NT-Pro-B Natriuret Pep 2820 pg/mL H pg/mL (0-450) Departure - Departure Disposition: [facility] Inpatient Acute Clinical Impression: Fatigue, Cardiomyopathy, Shortness of breath Condition: Fair Referrals: Dorothy Jung MD [Primary Care Provider] - As per Instructions
[2016-08-13 19:47] LABS: % IMMATURE GRANULYOCYTES 0.6 % (0.0-1.1); ABSOLUTE IMMATURE GRANULOCYTES 0.03 10^3/uL (0.00-0.10); ADD DIFF? NO; ADD MORPH? NO; ADD SCAN? NO; ATYPICAL LYMPHOCYTE FLAG 30 (0-99); FRAGMENT RBC FLAG 0 (0-99); HEMATOCRIT 46.1 % (40.0-51.0); HEMOGLOBIN 15.5 g/dL (13.7-17.5); LEFT SHIFT FLG 0 (0-99); LIPEMIA HEMOLYSIS FLAG 80 (0-99); MEAN CELL HEMOGLOBIN 33.5 pg (27.9-34.1); MEAN CELL HEMOGLOBIN CONCENTR. 33.6 g/dL (32.4-36.7); MEAN CELL VOLUME 99.6 fL (81.5-99.8); MEAN PLATELET VOLUME 10.2 fL (8.7-11.7); PLATELET CLUMPS FLAG 0 (0-99); PLATELET COUNT 172 10^3/uL (150-400); RED BLOOD CELL COUNT 4.63 10^6/uL (4.40-6.38); RED CELL DISTRIBUTION WIDTH 14.4 % (11.5-15.2)
[2016-08-13 19:58] LABS: ANION GAP 15 mEq/L (8-16); CALCIUM 9.5 mg/dL (8.5-10.4); CARBON DIOXIDE 24 mEq/l (22-31); CHLORIDE 98 mEq/L (97-110); CREATININE 1.5 mg/dL (0.7-1.3); GLOMERULAR FILTRATION RATE 45; GLUCOSE 107 mg/dL (70-100); POTASSIUM 4.2 mEq/L (3.5-5.2); SODIUM 137 mEq/L (134-144)
[2016-08-13] MEDS ORDERED: ONDANSETRON DISINTEGRATING 4 MG TAB PO PRN (23:32)
[2016-08-13] MEDS ORDERED: ACETAMINOPHEN 325 MG TAB PO PRN (23:32)
[2016-08-13] MEDS ORDERED: ZOLPIDEM TARTRATE 5 MG TAB PO PRN ×2 (23:32→23:53)
[2016-08-13] MEDS ORDERED: ONDANSETRON 4 MG/2 ML VIAL IVP PRN (23:32)
[2016-08-13] MEDS ORDERED: FLUTICASONE NASAL 120 SPRAYS/16 GM MDI EACHNARE PRN (23:35)
[2016-08-13] MEDS ORDERED: ASPIRIN EC 81 MG TAB PO SCH (23:35)
[2016-08-13] MEDS ORDERED: ATORVASTATIN CALCIUM 20 MG TAB PO SCH (23:36)
[2016-08-13] MEDS ORDERED: hydrALAZINE 25 MG TAB PO SCH (23:45)
[2016-08-13] MEDS ORDERED: METOPROLOL TARTRATE 25 MG TAB PO SCH (23:45)
[2016-08-13] MEDS ORDERED: APIXABAN 5 MG TAB PO SCH (23:45)
--- NOTE | 2016-08-14 01:11 | GHP ---
[f rep st] HISTORY AND PHYSICAL DATE OF ADMISSION: 08/13/2016 CHIEF COMPLAINT: Fatigue and shortness of breath. HISTORY OF PRESENT ILLNESS: The patient is an 81-year-old male with a history of ischemic cardiomyopathy, status post CABG x3, who had stents placed in his LAD and circumflex in June 2016. He presents to the emergency department today with fatigue and shortness of breath one day after elective cardioversion for A fib. He is anticoagulated on Eliquis. During his hospitalization in June, he had acute systolic heart failure and at the time of his angiogram, he had a severely reduced ejection fraction of 15%. Repeat echocardiogram July 22, 2016, showed improvement of his ejection fraction to 30%-35%. Since his cardioversion yesterday, he notes feeling very fatigued and weak. When he collin from supine to seated position, he became very dizzy and subsequently short of breath. He describes this as feeling like he was only getting down 90 % of a full deep breath and could not get the last 10%. He has had no chest pain. He denies any pleuritic symptoms. He denies orthopnea, paroxysmal nocturnal dyspnea, or lower extremity edema. He has had no significant change in his weight. He discussed his symptoms with his field crop technical officer, Dr. Molina, and was advised to take an extra dose of Lasix. He did so, but when his symptoms did not improve he came to the emergency department for evaluation. HOSPITAL COURSE: In the emergency department, EKG reveals sinus rhythm. There is no evidence of acute heart failure on his chest x-ray. His BNP is lower than his baseline. However, given his history and symptoms, he is admitted to the hospital for observation. He reports feeling back to his normal self tonight and feels he could go home. PAST MEDICAL HISTORY: 1. Coronary artery disease, status post stenting as above. 2. Ischemic cardiomyopathy with a most recent ejection fraction of 30%-35%. Improved from 15% in June 2016. 3. Atrial fibrillation, status post cardioversion August 12, 2016, and now in sinus rhythm. 4. Chronic anticoagulation on Eliquis. 5. Chronic systolic heart failure. 6. Chronic kidney disease. 7. Hypothyroidism. 8. Osteoarthritis. 9. Degenerative disk disease. PAST SURGICAL HISTORY: Lumbar spinal surgeries and other orthopedic surgeries. MEDICATIONS: Please see [facility] for complete updated outpatient medication list. ALLERGIES: No known drug allergies. SOCIAL HISTORY: The patient is a former smoker. He quit over 30 years ago. He reports occasional alcohol. He lives independently with his . Denies difficulties with his ADLs recently. FAMILY HISTORY: Positive for coronary artery disease. REVIEW OF SYSTEMS: A 10-point Review of Systems was performed and is negative except as per HPI. OBJECTIVE: VITAL SIGNS: Temperature is 36.6, blood pressure 92/52, which is a drop from his blood pressure earlier this evening in the one-teens to 130s. Systolic heart rate 74, respiratory rate 18, he is 93% on room air. GENERAL: The patient is awake, alert, oriented, in no acute distress. HEENT: Head is atraumatic, normocephalic. Pupils equal, round, and reactive to light. Extraocular muscles intact. Oropharynx is clear. Mucous members are moist. NECK: Supple. He has 4-6 cm of JVD bilaterally. HEART: Regular rate and rhythm. LUNGS: Clear to auscultation bilaterally. ABDOMEN: Soft, nondistended, nontender. Normoactive bowel sounds. EXTREMITIES: Without cyanosis, clubbing, or edema. NEUROLOGIC: Grossly nonfocal. LABORATORY DATA: CBC is completely normal. INR yesterday was 1.4. Basic metabolic panel reveals normal electrolytes. BUN is elevated at 28. Creatinine is 1.5, his baseline ranges from 1.2-1.4. BNP is 2820 which is down from 3540 in July of 2016. DIAGNOSTIC STUDIES: EKG reveals normal sinus rhythm with an incomplete left bundle branch block which was present on prior EKGs. Chest x-ray, was personally reviewed by myself. It is remarkable for cardiomegaly but no evidence of pneumonia or pulmonary edema. ASSESSMENT AND PLAN: The patient is an 81-year-old male with a history of coronary artery disease and ischemic cardiomyopathy with recent stenting to his LAD and circumflex, in addition to a history of atrial fibrillation, s/p cardioversion yesterday, presents to the emergency department with fatigue and shortness of breath. 1. Shortness of breath and fatigue. He does not appear to have an acute exacerbation of his heart failure. His BNP is actually lower than previously. Clinically he appears euvolemic. There is no evidence of pulmonary edema on his chest x-ray. We discussed the possibility that he has lingering effects from anesthesia yesterday given his sedation for cardioversion with propofol. I also considered if he may be orthostatic from his antihypertensives given his recent blood pressure of 92/52, recheck was 106/70. Will check orthostatic vital signs. Continue his metoprolol but will hold his hydralazine for now until cardiology consultation in the morning. He has no chest pain or symptoms of acute coronary syndrome. He is admitted to observation status to the PCU. Will monitor him on telemetry over night. 2. Ischemic cardiomyopathy secondary to coronary artery disease, status post stenting in June 2016. Continue aspirin, Plavix, statin and beta chichi. He is chest pain-free. EKG is nonischemic. 3. Atrial fibrillation, status post cardioversion yesterday. Continue Eliquis , Metoprolol. He is currently rate controlled in sinus rhythm. 4. Chronic systolic heart failure. Recent ejection fraction was 30%-35%. Patient appears euvolemic. Will continue his usual outpatient medications. 5. Acute kidney injury in the setting of chronic kidney disease. His baseline creatinine seems to be 1.2-1.4. Today his creatinine on admission is 1.5. He likely has some component of cardiorenal syndrome contributing to this. He does not appear hypovolemic on exam, thus I will defer any IV fluids. We will recheck this in the morning. 6. Code status. Patient is full code. DISPOSITION: Patient admitted to observation status. He may be a candidate for discharge home in the morning if his symptoms do not recur. /[id number]/MODL MTDD
[2016-08-14 05:59] LABS: ANION GAP 13 mEq/L (8-16); CALCIUM 9.2 mg/dL (8.5-10.4); CARBON DIOXIDE 21 mEq/l (22-31); CHLORIDE 103 mEq/L (97-110); CREATININE 1.3 mg/dL (0.7-1.3); GLOMERULAR FILTRATION RATE 53; GLUCOSE 83 mg/dL (70-100); POTASSIUM 4.2 mEq/L (3.5-5.2); SODIUM 137 mEq/L (134-144)
[2016-08-14] MEDS ORDERED: THYROID 60 MG TAB PO SCH (06:00)
[2016-08-14] MEDS ORDERED: LEVOTHYROXINE 50 MCG TAB PO SCH (06:00)
[2016-08-14] MEDS ORDERED: METOPROLOL TARTRATE 25 MG TAB PO SCH (09:00)
[2016-08-14] MEDS ORDERED: CLOPIDOGREL BISULFATE 75 MG TAB PO SCH (09:00)
[2016-08-14] MEDS ORDERED: APIXABAN 2.5 MG TAB PO SCH (09:00)
[2016-08-14 11:41] VITALS: BP 115/81; PULSE 100; RESP 16; TEMP 98.2; O2SAT 95
--- NOTE | 2016-08-14 14:27 | GCON ---
[f rep st] CONSULTATION HISTORY OF PRESENT ILLNESS: The patient was admitted to the hospital yesterday with some shortness of breath and some fatigue. The patient is a gentleman who is well known to me. He has a history of bypass surgery. He had a history of stents placed to his LAD and circumflex in June of 2016, when he presented with an ejection fraction of 15%. On July 22, he had a repeat echo that showed an ejection fraction of 30% to 35%. On the day of admission, he had an echo which showed an ejection fraction of 30%. He was seen that morning as well by me in clinic; that was yesterday. This day, when I am seeing him again, he is feeling much better. Last night, he called me around 4 in the afternoon saying he felt some shortness of breath. He did not want to come to the ER at that time, but rather took 40 mg of IV Lasix to see if that would help. When it did not relieve his symptoms despite significant urination, he came to the emergency room for further evaluation. The patient was found to be in atrial fibrillation when he came into the hospital, with a low ejection fraction in June. 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 He was cardioverted subsequently, after 6 weeks of full anticoagulation and not missing any doses. He did not want to have GI place an endoscope so that he could have a FLAKITO-guided cardioversion earlier than the current cardioversion he had, which was done on 08/12/16. With 1 shock, the patient converted from AFib to normal sinus rhythm, and he continues to be in normal sinus rhythm. His past history includes multiple procedures for his spine. He has significant osteoarthritis, with surgical procedures on his hands. He has chronic kidney disease. He has chronic congestive heart failure with reduced ejection fraction. He is doing a good job of remaining on his Eliquis. Most recently, he was complaining of carvedilol causing him to have serious symptoms in his head. So carvedilol was stopped and he was put on bisoprolol. Bisoprolol, within 2 days, he thought caused severe itching and he wanted to stop that. Bisoprolol was stopped and he was put on metoprolol. He had been on SENDY inhibitors in the past and could not tolerate those so that he was put on hydralazine at a low dose and we are trying to up-titrate that. He has had multiple chest x-rays which show minimal heart failure. He is not fluid overloaded, and he is not on daily Lasix at this time. He has not had any recurrent chest pain, chest tightness, jaw pain, arm pain. He has not had new palpitations. He has not had new neurologic symptoms or anything to suggest a cerebrovascular accident. The patient's EKGs have not changed on this admission. The chest x-ray done last night in the emergency room showed cardiomegaly, but no evidence of pneumonia or pulmonary edema and he has bypass surgery stigmata. His BUN was 28 when he came in, creatinine 1.5, BNP 2820, which is down from 3500 in July of 2016. ASSESSMENT AND PLAN: The patient feels much better today, and he has many factors that could be contributing to his acute shortness of breath. For 1 thing , he has had long time asthma and is taking inhalers that are not particularly effective and he thinks they are out of date. He does not appear to have any acute ischemia causing his current problems. He has a history of the asthma as noted, but he has says his asthma medication has been out of date for quite a while, so he is going to bring in his asthma medication and I will refill it when I see him on Friday. He has ongoing heart failure with reduced ejection fraction. The long-term plan right now is that he was taking hydralazine and that may have been causing the itching he is getting. He is getting severe itching at night. 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 He is wondering if it is hydralazine, so we are going to stop hydralazine for 2 days. I will see him in the office. His blood pressure at least once while he was in the hospital on this admission was 90 systolic. I will see him in several days and see how he is doing. He is going to resume his metoprolol. He does not need daily Lasix right now. So he will not take any more Lasix. He is fine with all this. He does not want any more testing or any other changes right now, and he has my cell phone number and calls me on a regular basis, so he will continue to do that if he has any questions. Another issue which we are going to follow up on is he has seen Dr. Jasvir Yost for pulmonary. The patient himself thinks that his inhalers are antiquated, and I can re-write for those inhalers when I see him on Friday, but he also may follow up with Dr. Jasvir Yost to see if there is pulmonary contribution to the shortness of breath he has been getting multiple episodes of. When he is getting these episodes of shortness of breath, he has not had atrial arrhythmias, he has not had tachycardia, he has not had acute ischemic changes, he has not had worsened LV systolic function, so the working mechanism of why they are happening is not totally clear from a cardiovascular point of view. I have discussed this case with the hospitalist. I have discussed this case extensively with his and with the patient, and all their questions have been answered. /[id number]/MODL MTDD
--- NOTE | 2016-08-14 17:53 | GDS ---
[f rep st] DISCHARGE SUMMARY DISCHARGE DIAGNOSES: 1. Transient shortness of breath, resolved. 2. Acute on chronic renal failure. 3. Atrial fibrillation, status post recent cardioversion. 4. Coronary artery disease, with recent stenting. 5. Ischemic cardiomyopathy. HISTORY: The patient is an 81-year-old male who presents with shortness of breath and fatigue after an elective cardioversion for atrial fibrillation. He is chronically anticoagulated on Eliquis. H is EF was previously 15%, but more recent echo showed it improved to 30% to 35%. He came in after f eeling dizzy and short of breath. HOSPITAL COURSE: He was fully evaluated, and his workup was essentially unremarkable. There was so me concern that maybe it was a prolonged anesthesia effect. Blood pressures were running a little l ow. He may been a little dry. Creatinine was 1.5, and did come back down to his baseline to 1.3. He has a lengthy history of adverse reactions to multiple medications. Please see dictated consulta tion by Dr. Trevor Molina, which details this lengthy history. Blood pressures were a little on the low side, so he was recommended to hold hydralazine at hospital discharge, and he will see Dr. Michael cordoba in very close followup in 2 days, and they will decide how to proceed regarding further medication treatment. DISCHARGE MEDICATIONS: Please see computerized record for full detailed list. There were no new me dications. The only medication change was holding of hydralazine 6.25 mg p.o. twice daily, and to f ollow up with Dr. Trevor Molina in 2 days. Patient was seen and examined by me on the day of discharge. /[id number]/MODL
[2016-08-14] MEDS ORDERED: TESTOSTERONE TP SCH (21:00)
== END 2016-08-14 13:35 | disposition home or self-care (01) ==
LOC: F2W 21:25
PROVIDERS: ADMIT Internal Medicine; ATTEND Internal Medicine
DX: R06.02 Shortness of breath (principal); R53.83 Other fatigue; I48.91 Unspecified atrial fibrillation; N17.9 Acute kidney failure, unspecified; N18.9 Chronic kidney disease, unspecified; I13.0 Hypertensive heart and chronic kidney disease with heart failure and stage 1 through stage 4 chronic kidney disease, or unspecified chronic kidney disease; I25.10 Atherosclerotic heart disease of native coronary artery without angina pectoris; I50.22 Chronic systolic (congestive) heart failure; I25.5 Ischemic cardiomyopathy; J45.909 Unspecified asthma, uncomplicated; E78.5 Hyperlipidemia, unspecified; E03.9 Hypothyroidism, unspecified; M19.90 Unspecified osteoarthritis, unspecified site; Z87.891 Personal history of nicotine dependence; Z82.49 Family history of ischemic heart disease and other diseases of the circulatory system; Z95.5 Presence of coronary angioplasty implant and graft; Z79.01 Long term (current) use of anticoagulants
CPT/HCPCS: 71020; 93005; 99285; G0378

== ENCOUNTER → 2016-08-13 | Outpatient (CLI) | payer OTHER | LOC: BHFA 11:30 | PROVIDERS: ATTEND Internal Medicine | DX: I48.91 Unspecified atrial fibrillation (principal) ==

== ENCOUNTER → 2016-08-16 | Outpatient (CLI) | payer OTHER | LOC: BHFA 10:00 | PROVIDERS: ATTEND Internal Medicine | DX: I48.91 Unspecified atrial fibrillation (principal); I25.10 Atherosclerotic heart disease of native coronary artery without angina pectoris; E78.5 Hyperlipidemia, unspecified; R53.83 Other fatigue; I10 Essential (primary) hypertension; Z95.1 Presence of aortocoronary bypass graft; E03.9 Hypothyroidism, unspecified ==

== ENCOUNTER 2016-08-19 09:31 | Day surgery (SDC) | payer OTHER ==
[2016-08-19] MEDS ORDERED: fentaNYL 100 MCG/2 ML INJ IVP ONE (09:36)
[2016-08-19] MEDS ORDERED: NS 500 ML IV ONE (09:36)
[2016-08-19] MEDS ORDERED: PROPOFOL 200 MG/20 ML VIAL IVP ONE (09:36)
[2016-08-19] MEDS ORDERED: MIDAZOLAM 2 MG/2 ML VIAL IVP ONE (09:36)
--- NOTE | 2016-08-19 10:00 | CPEKG ---
Heart Rate: 72 RR Interval: 833 QRSD Interval: 118 QT Interval: 448 QTC Interval: 491 QRS Exmore: -52 T Wave [place]: 116 EKG Severity - ABNORMAL ECG - EKG Impression: ATRIAL FIBRILLATION EKG Impression: INCOMPLETE LEFT BUNDLE BRANCH BLOCK EKG Impression: LVH WITH SECONDARY REPOLARIZATION ABNORMALITY EKG Impression: INFERIOR INFARCT, OLD EKG Impression: ATRIAL FIBRILLATION IS NEW IN COMPARISON TO PRIOR ECG Electronically Signed By: Allen Charlton 20-Aug-2016 12:42:53
[2016-08-19] MEDS ORDERED: PROPOFOL 200 MG/20 ML VIAL ONE ×2 (10:15)
[2016-08-19 10:25] LABS: INR 1.45 (0.83-1.16); PROTIME(PATIENT) 17.6 SEC (12.0-15.0)
[2016-08-19 10:26] LABS: APTT 37.7 SEC (23.0-38.0)
[2016-08-19 10:34] LABS: ANION GAP 11 mEq/L (8-16); CALCIUM 9.3 mg/dL (8.5-10.4); CARBON DIOXIDE 22 mEq/l (22-31); CHLORIDE 102 mEq/L (97-110); CREATININE 1.4 mg/dL (0.7-1.3); GLOMERULAR FILTRATION RATE 49; GLUCOSE 90 mg/dL (70-100); POTASSIUM 4.7 mEq/L (3.5-5.2); SODIUM 135 mEq/L (134-144)
--- NOTE | 2016-08-19 11:14 | CPEKG ---
Heart Rate: 58 RR Interval: 1034 P-R Interval: 248 QRSD Interval: 116 QT Interval: 488 QTC Interval: 480 P Sherrill: 40 QRS Sherrill: -46 T Wave Sherrill: 119 EKG Severity - ABNORMAL ECG - EKG Impression: SINUS RHYTHM EKG Impression: ABERRANT COMPLEX EKG Impression: FIRST DEGREE AV BLOCK EKG Impression: INCOMPLETE LEFT BUNDLE BRANCH BLOCK EKG Impression: PROBABLE LVH WITH SECONDARY REPOL ABNRM EKG Impression: SINUS RHYTHM HAS BEEN REESTABLISHED Electronically Signed By: Allen Charlton 20-Aug-2016 12:43:22
--- NOTE | 2016-08-19 11:25 | CPR ---
[f rep st] NONINVASIVE CARDIAC PROCEDURE REPORT PROCEDURE: Cardioversion. INDICATIONS: The patient has atrial fib/flutter. PROCEDURE IN DETAIL: The patient gave informed consent for cardioversion. He is a man who has very difficult pathology in his esophagus and has had to have multiple esophageal procedures, and he does not want any transesophageal echocardiograms. He has been on full-time Eliquis for over 3 months now and has not missed any doses. He refused to have a pre-cardioversion FLAKITO. We offered to have it done by his GI physician placing the probe, but he did not want to do that. So the plan was to go ahead with straight cardioversion without transesophageal echocardiogram. He knows the risk of stroke and , and wanted to proceed. He was cardioverted to normal sinus rhythm with 1 administration of 360 watt seconds of electricity. He remained in normal sinus rhythm for the time I was there, and he was waking up with Anesthesia present. I have reviewed the results with his . DISCUSSION: The patient says that he has been feeling more short of breath and he wants to go back on Coreg and lisinopril, both of which were stopped in the past because he requested stopping them. So we are going to resume those medications. As of this time, no complications. The patient has followup planned with the electrophysiology service. /[id number]/MODL MTDD
== END 2016-08-19 14:24 | disposition home or self-care (01) ==
LOC: FCATH 09:31
PROVIDERS: ATTEND Internal Medicine
PROC: 5A2204Z Restoration of Cardiac Rhythm, Single (ICD-10-PCS; principal; 2016-08-19)
DX: I48.91 Unspecified atrial fibrillation (principal); I25.10 Atherosclerotic heart disease of native coronary artery without angina pectoris; I10 Essential (primary) hypertension; E78.5 Hyperlipidemia, unspecified; E03.9 Hypothyroidism, unspecified
CPT/HCPCS: 71020; 78580; 93005; A9540; J2704

== ENCOUNTER → 2016-08-22 | Outpatient (CLI) | payer OTHER | LOC: BHFA 09:45 | PROVIDERS: ATTEND Internal Medicine Cardiovascular Disease | DX: I25.810 Atherosclerosis of coronary artery bypass graft(s) without angina pectoris (principal); I48.91 Unspecified atrial fibrillation; I50.22 Chronic systolic (congestive) heart failure; R53.83 Other fatigue; R06.02 Shortness of breath ==

== ENCOUNTER → 2016-09-06 | Outpatient (CLI) | payer OTHER | LOC: BHFA 14:00 | PROVIDERS: ATTEND Internal Medicine Cardiovascular Disease | DX: I48.91 Unspecified atrial fibrillation (principal) ==

== ENCOUNTER → 2016-10-23 | Outpatient (CLI) | payer OTHER | LOC: BHFA 13:00 | PROVIDERS: ATTEND Internal Medicine Cardiovascular Disease | DX: I50.22 Chronic systolic (congestive) heart failure (principal); I25.810 Atherosclerosis of coronary artery bypass graft(s) without angina pectoris; R06.02 Shortness of breath; N18.9 Chronic kidney disease, unspecified ==

== ENCOUNTER → 2016-11-14 | Outpatient (CLI) | payer OTHER | LOC: BHFA 10:00 | PROVIDERS: ATTEND Internal Medicine Cardiovascular Disease | DX: I50.9 Heart failure, unspecified (principal) ==

== ENCOUNTER 2016-12-14 02:11 | Emergency (ER) | payer OTHER ==
[2016-12-14 02:17] VITALS: RESP 18
[2016-12-14] MEDS ORDERED: OXYMETAZOLINE 30 ML NASAL SPRAY ONE (02:25)
[2016-12-14] MEDS ORDERED: OXYMETAZOLINE 30 ML NASAL SPRAY EACHNARE ONE (02:26)
[2016-12-14] MEDS ORDERED: SILVER NITRATE APPLICATOR 1 APPL TP ONE (02:31)
--- NOTE | 2016-12-14 02:32 | EDPHY ---
H & P Stated Complaint: NOSE BLEED FOR PAST 4 HOURS Time Seen by Provider: 12/14/16 02:26 HPI/ROS: Chief Complaint: Epistaxis HPI: 81-year-old male on Eliquis and Plavix began having bleeding from his right nostril about 4 hours ago. He packed it with tissue but every time he removed the bleeding started again. He has not had any lightheadedness. Has not been swallowing a lot of blood. No nausea or vomiting. No headache. No recent illness. ROS: 10 point Review of Systems is negative except as noted in the HPI. PMH: Social History: No smoking, no alcohol, no recreational drug use Family History: non-contributory Physical Exam: Gen: Awake, Alert, No Distress HEENT: Scattered tissue in his right now with, when removed there is minimal active oozing. Eyes: PERRLA, EOMI Mouth: Moist mucosa Neck: Supple, no JVD Chest: nontender, lungs clear to auscultation Heart: S1, S2 normal, no murmur Abd: Soft, non-tender, no guarding Back: no CVA tenderness, no midline tenderness Ext: no edema, non-tender Skin: no rash Neuro: CN II-XII intact, Sensation grossly intact, Strength 5/5 in bilateral upper and lower extremities - Personal History Current Tetanus/Diphtheria Vaccine: Yes Current Tetanus Diphtheria and Acellular Pertussis (TDAP): Yes Tetanus Vaccine Date: less than 10 years - Medical/Surgical History Hx Asthma: Yes Hx Chronic Respiratory Disease: No Hx Diabetes: No Hx Cardiac Disease: Yes Hx Renal Disease: No Hx Cirrhosis: No Hx Alcoholism: No Hx HIV/AIDS: No Hx Splenectomy or Spleen Trauma: No Other PMH: CABGX3, HYPERLIPIDEMIA, HYPOTHYROIDISM, BACK SURGERY, ASTHMA, multiple ortho surg, cardiac stents, CV - Social History Smoking Status: Former smoker Constitutional: Initial Vital Signs Heart Rate 69 12/14/16 02:15 Respiratory Rate 18 12/14/16 02:15 Blood Pressure 140/85 H 12/14/16 02:15 O2 Sat (%) 94 12/14/16 02:15 O2 Delivery Mode Room Air Allergies/Adverse Reactions: levofloxacin [From Levaquin] Allergy (Severe, Verified 12/14/16 02:17) Other-Enter Comments Quinolones Allergy (Verified 12/14/16 02:17) Home Medications: Medication Instructions Recorded Thyroid [Ruthven Thyroid 60 MG (*)] 120 mg PO DAILY06 12/28/12 Aspirin EC [Aspirin EC 81 mg (*)] 81 mg PO HS 06/24/16 Fluticasone Nasal [Flonase Nasal 2 sprays EACHNARE DAILY PRN 06/24/16 [place]] Levothyroxine [Synthroid 50 mcg 50 mcg PO DAILY06 06/24/16 (*)] Zolpidem Tartrate [Ambien 5MG (*)] 2.5 - 5 mg PO HS PRN 06/24/16 Clopidogrel Bisulfate [Plavix (*)] 75 mg PO DAILY #30 tab 06/29/16 Testosterone [Androderm] 1 patch TP HS 07/21/16 Apixaban [Eliquis] 2.5 mg PO BID 08/12/16 Metoprolol Tartrate [Lopressor 25 12.5 mg PO BID 08/13/16 mg (*)] Simvastatin 40 mg PO HS 08/13/16 Medical Decision Making Procedures: Procedure: Epistaxis control. After verbal consent was obtained, the patient was anesthetized with Afrin. The anterior epistaxis was identified. The patient was treated with silver nitrate cautery. Following the procedure the patient was re-examined and the bleeding was well controlled. The patient tolerated the procedure well. The procedure was performed by myself. - Data Points Medications Given: Discontinued Medications Oxymetazoline HCl (Afrin Nasal [place]) 2 sprays EACHNARE EDNOW ONE Stop: 12/14/16 02:27 Last Admin: 12/14/16 02:28 Dose: Not Given Silver Nitrate/Potassium Nitrate (Silver Nitrate Applicator) 1 each TP EDNOW ONE Stop: 12/14/16 02:32 Last Admin: 12/14/16 03:20 Dose: Not Given Departure - Departure Disposition: Home, Routine, Self-Care Clinical Impression: Acute anterior epistaxis Condition: Good Instructions: Nosebleed (ED) Additional Instructions: Follow up with with the ear nose and throat doctor on Friday. Return the emergency department for your bleeding resumes. Referrals: Malachi Petty MD [Primary Care Provider] - As per Instructions Winston Mora MD [Medical Doctor] - As per Instructions
[2016-12-14 04:22] VITALS: BP 131/78; PULSE 58; TEMP 97.5; O2SAT 93
== END 2016-12-14 04:22 | disposition home or self-care (01) ==
PROC: 2Y41X5Z Packing of Nasal Region using Packing Material (ICD-10-PCS; principal; 2016-12-14)
DX: R04.0 Epistaxis (principal); J45.909 Unspecified asthma, uncomplicated; Z79.82 Long term (current) use of aspirin; Z87.891 Personal history of nicotine dependence; Z95.1 Presence of aortocoronary bypass graft; Z95.5 Presence of coronary angioplasty implant and graft

== ENCOUNTER → 2016-12-18 | Outpatient (CLI) | payer OTHER | LOC: BHFA 13:00 | PROVIDERS: ATTEND Internal Medicine Cardiovascular Disease | DX: I50.22 Chronic systolic (congestive) heart failure (principal); R05 Cough; R06.02 Shortness of breath; J40 Bronchitis, not specified as acute or chronic ==

== ENCOUNTER → 2017-05-06 | Outpatient (CLI) | payer OTHER | LOC: FIMAGING 18:40 | PROVIDERS: ATTEND Physician Assistant | DX: J32.0 Chronic maxillary sinusitis (principal) ==

== ENCOUNTER → 2017-05-09 | Outpatient (CLI) | payer OTHER | LOC: BHCLAF 14:00 | PROVIDERS: ATTEND Internal Medicine Cardiovascular Disease | DX: I50.9 Heart failure, unspecified (principal) | CPT/HCPCS: 93308-PO ==

== ENCOUNTER 2017-09-13 23:50 | Inpatient (IN) | payer OTHER ==
--- NOTE | 2017-09-14 00:01 | CPEKG ---
Heart Rate: 71 RR Interval: 845 P-R Interval: 244 QRSD Interval: 122 QT Interval: 396 QTC Interval: 431 P Amelia: 27 QRS Amelia: -63 T Wave Amelia: 97 EKG Severity - ABNORMAL ECG - EKG Impression: SINUS RHYTHM EKG Impression: FIRST DEGREE AV BLOCK EKG Impression: LEFT BUNDLE BRANCH BLOCK EKG Impression: INFERIOR Q WAVES, POSSIBLY DUE TO LBBB Electronically Signed By: Sharmila Jimenez 14-Sep-2017 01:34:45
--- NOTE | 2017-09-14 00:56 | EDPHY ---
H & P Stated Complaint: 1 week of weakness, recent med changed, anxiety started on ativan Time Seen by Provider: 09/14/17 00:53 HPI/ROS: HPI The patient presents with weakness, fatigue, shortness of breath which has been present for the last 1 week and getting progressively worse. The patient says that he cannot take a deep breath in and it is difficult to breathe at times. He says he has been having some difficulty sleeping and has been seeing Dr. Narayan of sleep medicine for this. He was taking gabapentin and lorazepam over this week which improved his sleep. He now is no longer taking gabapentin but is taking lorazepam and is trying to decrease the dose. Tonight he did not take a dose and he had difficulty sleeping because of shortness of breath so 911 was called. He has a 8 lb weight gain recently. His reports that his face seems edematous. He is awaking at night because of a full-body tremor which he awakes with nightly. He has been sleeping a lot throughout the day and has been unable to exercise. He sleeps in a semi recumbent position and this is not changed recently. Three weeks ago, his armor thyroid was discontinued and he was started on Synthroid. His other medications have remained the same. REVIEW OF SYSTEMS Constitutional: No fever, no chills. Eyes: No discharge. ENT: No sore throat. Cardiovascular: No chest pain, no palpitations. Respiratory: No cough, positive for shortness of breath. Gastrointestinal: No abdominal pain, no vomiting. Genitourinary: No hematuria. Musculoskeletal: No back pain. Skin: No rashes. Neurological: No headache. PMHx: CHF, CAD, atrial fibrillation Soc Hx: Lives at home with his partner PHYSICAL General Appearance: Alert, no distress Eyes: Pupils equal and round no pallor or injection ENT, Mouth: Mucous membranes moist Respiratory: There are no retractions, lungs are clear to auscultation Cardiovascular: Regular rate and rhythm Gastrointestinal: Abdomen is soft and non-tender, no masses, bowel sounds normal Neurological: A&O, moves all extremities Skin: Warm and dry, no rashes Musculoskeletal: Neck is supple non tender Extremities: symmetrical, full range of motion Psychiatric: Patient is oriented X 3, there is no agitation Source: Patient, EMS Exam Limitations: No limitations - Personal History Current Tetanus/Diphtheria Vaccine: Yes Current Tetanus Diphtheria and Acellular Pertussis (TDAP): Yes Tetanus Vaccine Date: less than 10 years - Medical/Surgical History Hx Asthma: Yes Hx Chronic Respiratory Disease: No Hx Diabetes: No Hx Cardiac Disease: Yes Hx Renal Disease: No Hx Cirrhosis: No Hx Alcoholism: No Hx HIV/AIDS: No Hx Splenectomy or Spleen Trauma: No Other PMH: CABGX3, HYPERLIPIDEMIA, HYPOTHYROIDISM, BACK SURGERY, ASTHMA, multiple ortho surg, cardiac stents, CV, A-FIB, CHF - Social History Smoking Status: Former smoker Constitutional: Initial Vital Signs Temperature (C) 36.8 C 09/13/17 23:50 Heart Rate 83 09/13/17 23:50 Respiratory Rate 18 09/13/17 23:50 Blood Pressure 159/88 H 09/13/17 23:50 O2 Sat (%) 91 L 09/13/17 23:50 O2 Delivery Mode Room Air Allergies/Adverse Reactions: levofloxacin [From Levaquin] Allergy (Severe, Verified 09/13/17 23:58) Other-Enter Comments Quinolones Allergy (Verified 09/13/17 23:58) Home Medications: Medication Instructions Recorded Aspirin EC [Aspirin EC 81 mg (*)] 81 mg PO HS 06/24/16 Fluticasone Nasal [Flonase Nasal 2 sprays EACHNARE DAILY PRN 06/24/16 [place]] Levothyroxine [Synthroid 50 mcg 200 mcg PO DAILY06 06/24/16 (*)] Zolpidem Tartrate [Ambien 5MG (*)] 2.5 - 5 mg PO HS PRN 06/24/16 Testosterone [Androderm] 1 patch TP HS 07/21/16 Apixaban [Eliquis] 2.5 mg PO BID 08/12/16 Simvastatin 10 mg PO HS 08/13/16 Clopidogrel Bisulfate [Plavix] 75 mg PO DAILY 09/14/17 Sacubitril/Valsartan 24/26Mg 1 ea PO BID 09/14/17 [Entresto 24 mg/26 mg (RX)] Medical Decision Making - Diagnostics EKG Interpretation: EKG: Complete interpretation has been separately recorded in the [facility] archive. Summary impression: Left bundle branch block Imaging Results: Chest x-ray two view shows cephalization of pulmonary vessels, no cardiomegaly, no pleural effusion, interpreted by me, radiology interpretation is pending. Imaging: I viewed and interpreted images myself Differential Diagnosis: This is an 82-year-old male with known CHF, CAD, atrial fibrillation who presents from home brought in by ambulance for 1 week of progressive shortness of breath, fatigue, also weight gain. Differential diagnosis includes CHF exacerbation, new onset obstructive sleep apnea, electrolyte disturbance, dehydration, less likely ACS. In the emergency department, labs were checked and did reveal an elevated troponin, elevated BNP , similar to previous values. His sodium and chloride are low when this could be related to his diuretic use. However, I believe he would benefit from Lasix given that he is likely in a mild CHF exacerbation. He already received aspirin today thus I will not give him another dose for elevated troponin. He does not have any chest pain, thus I suspect ACS is unlikely. I plan to admit him to the hospitalist service for further care. I consulted with Dr. Dominguez given that the patient is followed by Dr. Lopez. She recommends hospitalist admission and then she will accept transfer of care later in the morning. Dr. Coon will admit the patient. - Data Points Laboratory Results: Laboratory Results 09/14/17 00:00 09/14/17 00:00 09/14/17 09/14/17 09/14/17 00:55 00:00 00:00 WBC 6.57 10^3/uL 10^3/uL (3.80-9.50) RBC 4.22 10^6/uL L 10^6/uL (4.40-6.38) Hgb 15.2 g/dL g/dL (13.7-17.5) Hct 42.0 % % (40.0-51.0) MCV 99.5 fL fL (81.5-99.8) MCH 36.0 pg H pg (27.9-34.1) MCHC 36.2 g/dL g/dL (32.4-36.7) RDW 14.8 % % (11.5-15.2) Plt Count 202 10^3/uL 10^3/uL (150-400) MPV 10.1 fL fL (8.7-11.7) Neut % (Auto) 53.1 % % (39.3-74.2) Lymph % (Auto) 33.5 % % (15.0-45.0) [place] % (Auto) 9.1 % % (4.5-13.0) Eos % (Auto) 2.6 % % (0.6-7.6) Baso % (Auto) 0.8 % % (0.3-1.7) Nucleat RBC Rel Count 0.0 % % (0.0-0.2) Absolute Neuts (auto) 3.49 10^3/uL 10^3/uL (1.70-6.50) Absolute Lymphs (auto) 2.20 10^3/uL 10^3/uL (1.00-3.00) Absolute Monos (auto) 0.60 10^3/uL 10^3/uL (0.30-0.80) Absolute Eos (auto) 0.17 10^3/uL 10^3/uL (0.03-0.40) Absolute Basos (auto) 0.05 10^3/uL 10^3/uL (0.02-0.10) Absolute Nucleated RBC 0.00 10^3/uL 10^3/uL (0-0.01) Immature Gran % 0.9 % % (0.0-1.1) Immature Gran # 0.06 10^3/uL 10^3/uL (0.00-0.10) Sodium 128 mEq/L L mEq/L (135-145) Potassium 4.6 mEq/L mEq/L (3.5-5.2) Chloride 89 mEq/L L mEq/L (97-110) Carbon Dioxide 21 mEq/l L mEq/l (22-31) Anion Gap 18 mEq/L H mEq/L (8-16) BUN 26 mg/dL H mg/dL (7-23) Creatinine 1.3 mg/dL mg/dL (0.7-1.3) Estimated GFR 53 Glucose 91 mg/dL mg/dL (70-100) Calcium 9.6 mg/dL mg/dL (8.5-10.4) Total Bilirubin 1.1 mg/dL mg/dL (0.1-1.4) Conjugated Bilirubin 0.6 mg/dL H mg/dL (0.0-0.5) Unconjugated Bilirubin 0.5 mg/dL mg/dL (0.0-1.1) AST 83 IU/L H IU/L (17-59) ALT 56 IU/L IU/L (21-72) Alkaline Phosphatase 79 IU/L IU/L (38-126) Troponin I 0.109 ng/mL H ng/mL (0.000-0.034) NT-Pro-B Natriuret Pep 1000 pg/mL H pg/mL (0-450) Total Protein 8.0 g/dL g/dL (6.3-8.2) Albumin 4.4 g/dL g/dL (3.5-5.0) TSH 9.130 uIU/mL H uIU/mL (0.465-4.680) Urine Color YELLOW Urine Appearance CLEAR Urine pH 5.0 (5.0-7.5) Ur Specific [place] 1.011 (1.002-1.030) Urine Protein NEGATIVE (NEGATIVE) Urine Ketones TRACE H (NEGATIVE) Urine Blood 1+ H (NEGATIVE) Urine Nitrate NEGATIVE (NEGATIVE) Urine Bilirubin NEGATIVE (NEGATIVE) Urine Urobilinogen NEGATIVE EU EU (0.2-1.0) Ur Leukocyte Esterase NEGATIVE (NEGATIVE) Urine RBC 3-5 /hpf H /hpf (0-3) Urine WBC 1-3 /hpf /hpf (0-3) Ur Epithelial Cells Not Reported Urine Bacteria TRACE /hpf H /hpf (NONE SEEN) Urine Mucus TRACE /lpf /lpf (NONE-1+) Urine Glucose NEGATIVE (NEGATIVE) Medications Given: Discontinued Medications Furosemide (Lasix Injection) 20 mg IVP EDNOW ONE Stop: 09/14/17 01:38 Last Admin: 09/14/17 01:53 Dose: 20 mg Departure - Departure Disposition: [facility] Inpatient Acute Clinical Impression: Elevated troponin, Shortness of breath, Hyponatremia Fatigue Qualifiers: Fatigue type: unspecified Qualified Code(s): R53.83 - Other fatigue Acute exacerbation of CHF (congestive heart failure) Qualifiers: Heart failure type: unspecified Qualified Code(s): I50.9 - Heart failure, unspecified Condition: Fair
[2017-09-14 00:57] LABS: PLATELET COUNT 202 10^3/uL (150-400)
[2017-09-14] MEDS ORDERED: FUROSEMIDE 20 MG/2 ML VIAL IVP ONE ×2 (01:37→11:15)
--- NOTE | 2017-09-14 02:33 | PDGENHP ---
History and Physical - Chief Complaint Fatigue - History of Present Illness 82 yo M w/ CAD s/p CABG & ADAMARIS, ICM, pAF, and CKD presents with fatigue. Patient describes fatigue x1 week. He feels this is somewhat worse when he lays flat. He called Dr. Whalen with these symptoms on Friday and was prescribed furosemide 20 mg qD. He took this with only marginal improvement although his does state he looks less swollen since taking this. He came to the ED today when he could not get to sleep because of his symptoms. He describes a 6 lb weight gain over the last week. This is consistent with weights obtained at his last cardiology visit and in the ED today. He denies chest pain, recent illness, or sick contacts. History Information - Allergies/Home Medication List Allergies/Adverse Reactions: levofloxacin [From Levaquin] Allergy (Severe, Verified 09/13/17 23:58) Other-Enter Comments Quinolones Allergy (Verified 09/13/17 23:58) Home Medications: Aspirin EC [Aspirin EC 81 mg (*)] 81 mg PO HS 06/24/16 [Last Taken 08/12/16] Fluticasone Nasal [Flonase Nasal [place]] 2 sprays EACHNARE DAILY PRN 06/24/16 [ Last Taken 08/13/16] Levothyroxine [Synthroid 50 mcg (*)] 200 mcg PO DAILY06 06/24/16 [Last Taken 08/26] Zolpidem Tartrate [Ambien 5MG (*)] 2.5 - 5 mg PO HS PRN 06/24/16 [Last Taken 07/26] Testosterone [Androderm] 1 patch TP HS 07/21/16 [Last Taken 08/12/16] Apixaban [Eliquis] 2.5 mg PO BID 08/12/16 [Last Taken 08/13/16] Simvastatin 10 mg PO HS 08/13/16 [Last Taken 08/12/16] Clopidogrel Bisulfate [Plavix] 75 mg PO DAILY 09/14/17 [Last Taken Unknown] Sacubitril/Valsartan 24/26Mg [Entresto 24 mg/26 mg (RX)] 1 ea PO BID 09/14/17 [ Last Taken Unknown] I have personally reviewed and updated: family history, medical history - Past Medical History atrial fibrillation, CHF Additional medical history: CAD s/p CABG x 3 vessels. Hypothyroidism. osteoarthritis. degenerative disease disease with peripheral neuropathy and L foot drop - Surgical History Additional surgical history: CABG. multiple lumbar spinal surgeries. multiple orthopedic surgeries - Family History Additional family history: F: CHF, CAD, in 60s - Social History Smoking Status: Former smoker Additional social history: Patient lives with his , walks with crutch due to L foot drop. 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 Review of Systems Review of Systems: ROS: 10pt was reviewed & negative except for what was stated in HPI & below Physical Exam Physical Exam: Temp Pulse Resp BP Pulse Ox 36.8 C 83 18 159/88 H 91 L 09/13/17 23:50 09/13/17 23:50 09/13/17 23:50 09/13/17 23:50 09/13/17 23:50 Constitutional: no apparent distress, not in pain Eyes: PERRL, EOMI Ears, Nose, Mouth, Throat: moist mucous membranes, no oral mucosal ulcers Cardiovascular: regular rate and rhythym, systolic murmur, JVD (2 cm above clavicle at 30 degrees), edema (Trace b/l NANCY) Respiratory: no respiratory distress, inspiratory crackles (Bibasilar) Gastrointestinal: normoactive bowel sounds, soft, non-tender abdomen Skin: warm, normal color Musculoskeletal: full muscle strength, no muscle tenderness Neurologic: AAOx3, CN II-XII Intact Psychiatric: interacting appropriately, not anxious Lab Data & Imaging Review 09/14/17 00:00 09/14/17 00:00 WBC 6.57 10^3/uL (3.80-9.50) 09/14/17 00:00 RBC 4.22 10^6/uL (4.40-6.38) L 09/14/17 00:00 Hgb 15.2 g/dL (13.7-17.5) 09/14/17 00:00 Hct 42.0 % (40.0-51.0) 09/14/17 00:00 MCV 99.5 fL (81.5-99.8) 09/14/17 00:00 MCH 36.0 pg (27.9-34.1) H 09/14/17 00:00 MCHC 36.2 g/dL (32.4-36.7) 09/14/17 00:00 RDW 14.8 % (11.5-15.2) 09/14/17 00:00 Plt Count 202 10^3/uL (150-400) 09/14/17 00:00 MPV 10.1 fL (8.7-11.7) 09/14/17 00:00 Neut % (Auto) 53.1 % (39.3-74.2) 09/14/17 00:00 Lymph % (Auto) 33.5 % (15.0-45.0) 09/14/17 00:00 [place] % (Auto) 9.1 % (4.5-13.0) 09/14/17 00:00 Eos % (Auto) 2.6 % (0.6-7.6) 09/14/17 00:00 Baso % (Auto) 0.8 % (0.3-1.7) 09/14/17 00:00 Nucleat RBC Rel Count 0.0 % (0.0-0.2) 09/14/17 00:00 Absolute Neuts (auto) 3.49 10^3/uL (1.70-6.50) 09/14/17 00:00 Absolute Lymphs (auto) 2.20 10^3/uL (1.00-3.00) 09/14/17 00:00 Absolute Monos (auto) 0.60 10^3/uL (0.30-0.80) 09/14/17 00:00 Absolute Eos (auto) 0.17 10^3/uL (0.03-0.40) 09/14/17 00:00 Absolute Basos (auto) 0.05 10^3/uL (0.02-0.10) 09/14/17 00:00 Absolute Nucleated RBC 0.00 10^3/uL (0-0.01) 09/14/17 00:00 Immature Gran % 0.9 % (0.0-1.1) 09/14/17 00:00 Immature Gran # 0.06 10^3/uL (0.00-0.10) 09/14/17 00:00 Sodium 128 mEq/L (135-145) L 09/14/17 00:00 Potassium 4.6 mEq/L (3.5-5.2) 09/14/17 00:00 Chloride 89 mEq/L (97-110) L 09/14/17 00:00 Carbon Dioxide 21 mEq/l (22-31) L 09/14/17 00:00 Anion Gap 18 mEq/L (8-16) H 09/14/17 00:00 BUN 26 mg/dL (7-23) H 09/14/17 00:00 Creatinine 1.3 mg/dL (0.7-1.3) 09/14/17 00:00 Estimated GFR 53 09/14/17 00:00 Glucose 91 mg/dL (70-100) 09/14/17 00:00 Calcium 9.6 mg/dL (8.5-10.4) 09/14/17 00:00 Total Bilirubin 1.1 mg/dL (0.1-1.4) 09/14/17 00:00 Conjugated Bilirubin 0.6 mg/dL (0.0-0.5) H 09/14/17 00:00 Unconjugated Bilirubin 0.5 mg/dL (0.0-1.1) 09/14/17 00:00 AST 83 IU/L (17-59) H 09/14/17 00:00 ALT 56 IU/L (21-72) 09/14/17 00:00 Alkaline Phosphatase 79 IU/L (38-126) 09/14/17 00:00 Troponin I 0.109 ng/mL (0.000-0.034) H 09/14/17 00:00 NT-Pro-B Natriuret Pep 1000 pg/mL (0-450) H 09/14/17 00:00 Total Protein 8.0 g/dL (6.3-8.2) 09/14/17 00:00 Albumin 4.4 g/dL (3.5-5.0) 09/14/17 00:00 TSH 9.130 uIU/mL (0.465-4.680) H 09/14/17 00:00 Urine Color YELLOW 09/14/17 00:55 Urine Appearance CLEAR 09/14/17 00:55 Urine pH 5.0 (5.0-7.5) 09/14/17 00:55 Ur Specific [place] 1.011 (1.002-1.030) 09/14/17 00:55 Urine Protein NEGATIVE (NEGATIVE) 09/14/17 00:55 Urine Ketones TRACE (NEGATIVE) H 09/14/17 00:55 Urine Blood 1+ (NEGATIVE) H 09/14/17 00:55 Urine Nitrate NEGATIVE (NEGATIVE) 09/14/17 00:55 Urine Bilirubin NEGATIVE (NEGATIVE) 09/14/17 00:55 Urine Urobilinogen NEGATIVE EU (0.2-1.0) 09/14/17 00:55 Ur Leukocyte Esterase NEGATIVE (NEGATIVE) 09/14/17 00:55 Urine RBC 3-5 /hpf (0-3) H 09/14/17 00:55 Urine WBC 1-3 /hpf (0-3) 09/14/17 00:55 Ur Epithelial Cells Not Reported 09/14/17 00:55 Urine Bacteria TRACE /hpf (NONE SEEN) H 09/14/17 00:55 Urine Mucus TRACE /lpf (NONE-1+) 09/14/17 00:55 Urine Glucose NEGATIVE (NEGATIVE) 09/14/17 00:55 Visualized and Interpreted Chest x-ray results: Yes Chest X-Ray results: other (Vascular congestion, no mookie edema) Visualized and Interpreted EKG results: Yes EKG Interpretation: Positive for: left bundle branch block, normal sinsus rhythm , other (1st degree AV block) Assessment & Plan Assessment: 82 yo M w/ CAD s/p CABG & ADAMARIS, ICM (last EF 48%), pAF, and CKD presents with fatigue due to mild CHF exacerbation. Plan: 1. Chronic ischemic cardiomyopathy with acute exacerbation - Patient reports 6 lb weight gain over the last week. Trigger for this is unclear as he usually does not take diuretics. He denies change in diet or fluid intake. He also denies chest pain or symptoms suggestive of ACS; in sinus rhythm on admission. Echo 04/27 showed LVEF 48% with mild MR and moderate TR. - Admit to PCU for observation - Monitor on telemetry, trend cardiac enzymes - Lasix 20 mg IV BID - Daily weights, monitor I/Os, cardiac diet - Continue other home medications, needs med reconciliation 2. Elevated troponin - Troponin 0.1 on admission; denies chest pain and ECG without acute ischemic changes. Review of previous values reveals that his troponin is frequently elevated; this may be demand ischemia in setting of CHF and CKD. - Monitor on telemetry, trend cardiac enzymes 3. CAD - s/p CABG in 2012 and ADAMARIS to LAD and LCx on 05/28. - Continue home medications, needs med reconciliation - Acute management as above 4. pAF - In NSR on admission; on apixaban for AC and Toprol XL 25 mg qD as outpatient. 5. CKD, Stage III - Cr 1.3-1.4 at baseline; currently the same. 6. Hyponatremia - Possibly hypervolemic hyponatremia noting suspected CHF exacerbation. - Lasix as above - Monitor BMP Diet - Cardiac Code - Full Ppx - Apixaban Dispo - Admit to PCU under observation status
[2017-09-14] MEDS ORDERED: ONDANSETRON 4 MG/2 ML VIAL IVP PRN (02:44)
[2017-09-14] MEDS ORDERED: ONDANSETRON DISINTEGRATING 4 MG TAB PO PRN (02:44)
[2017-09-14] MEDS ORDERED: ACETAMINOPHEN 325 MG TAB PO PRN (02:44)
[2017-09-14] MEDS ORDERED: FUROSEMIDE 40 MG/4 ML VIAL IVP SCH (09:00)
--- NOTE | 2017-09-14 09:32 | ASMTCMCOM ---
CM Note CM Note Notes: Chart reviewed. Patient is 82 year old male who came in though the ED with SOB. Reports an 8lb weight gain. Normally independent with support from . Needs TBD at this time. CM to follow. Plan: TBD Date Signed: 09/14/2017 09:31 AM Electronically Signed By:Padmini Solitario RN
[2017-09-14] MEDS ORDERED: traZODone 50 MG TAB PO PRN (10:14)
[2017-09-14] MEDS ORDERED: FLUTICASONE NASAL 120 SPRAYS/16 GM MDI EACHNARE PRN (10:14)
[2017-09-14] MEDS ORDERED: APIXABAN 5 MG TAB PO SCH (10:15)
--- NOTE | 2017-09-14 10:46 | SOAPPROG ---
SOAP Progress Note Assessment/Plan: Assessment: 82 yo male w/ known h/o cad s/p CABG, ICM last EF 48% 5-6 months ago, but was 10 % w/ last CHF excerbation/CABG 1.5 yrs ago, mild ALISIA in midst of w/u with sleep study next week on Friday, hypothyroid (w/ meds just changed a couple weeks ago from armour + synthroid to just synthroid and TSH on 09/08 was 8, currently 9 ), OA, h/o PAF on eliquis - bb recently stopped as HR in 50's/60's as outpt, presented w/ 6 pound wt gain, congestion, fatigue over the past week, feeling "just like CHF last time". -mild CHF exacerbation - fluid up 6 pounds over a few days, fatigued, bnp mildly up at 1000 (up from 600) - may be in part due to uncontrolled ALISIA and of note does have sleep study scheduled in 2 days, has not been sleeping well lately at all, has been working on this w/ PCP in clinic w/ trial w/ gabapentin and tiny dose ativan to help w/ sleep in the interim. Doubt ACS w mild trop elev , f/u w/ additional at 14:00 today. Getting echo. On lasix and free water restriction, following i/o's. Is to f/u with Dr. Whalen tomorrow in clinic - was placed on lasix 20 mg po qd just last week per Dr Whalen (does not usually need diuretics and does not take on a daily basis). Dr Ambrosio will see pt later this am as well. -elev trop - suspect 2/2 demand ischemia but will repeat at 14:00 today. No cp. -h/o PAF - in sinus currently and reports has been for a long time, on eliquis, bb stopped recently due to dizziness and bradycardia in outpt setting about 3 weeks ago. -hypothyroid - in midst of changing meds for this - will increase Synthroid slightly but do not want to change much as this is a recent change and has not had enough time to normalize yet. -cad - cont statin, is on plavix, eliquis, d, usual home meds. -ALISIA - see CHF above - in midst of outpt w/u w sleep study in 2 days. -hyponatremia - fluid restrict, watch closely w/ iv lasix. -dvt proph - on elquis (and plavix). -dispo - will follow overnight to assess further trop, echo, sodium, if doing well possibly d/c in am, will follow cards recs after they see him as well. Thanks. Plan: 09/14/17 10:26 Subjective: Gen: pleasant, A&O x 3, spouse at bedside HEENT: eomi Neck: soft, supple, can't appreciate JVD as was seen last night Chest: cta b CV: rrr Abd: soft nl bs non tender Ext: no edema rle, LLE w/ trace edema improved from yesterday, has atrophy w/ foot drop on L 2/2 surgery. Trop mildly +, Na 127, Cr 1.1, echo Pending, BNP 1000 Objective: Vital Signs Temp Pulse Resp BP Pulse Ox 36.5 C 57 L 16 107/61 92 09/14/17 08:21 09/14/17 08:21 09/14/17 08:21 09/14/17 08:21 09/14/17 08:21 Laboratory Results 09/14/17 06:35 09/13/17 09/14/17 09/15/17 05:59 05:59 05:59 Output Total 850 800 Balance -850 -800 - Pending Discharge Pending Discharge Within 48 Hours: Yes Pending Discharge Date: 09/16/17 Pending Discharge Time: 11:00 ICD10 Worksheet Patient Problems: Problems Problem Status Onset Acute exacerbation of CHF (congestive heart failure) Acute Elevated troponin Acute Fatigue Acute Hyponatremia Acute Shortness of breath Acute Atrial fibrillation with RVR Acute Cardiomegaly Acute Cardiomyopathy Acute Chronic Disease Mgmt/Transitional Care Acute Congestive cardiac failure Acute Dyspnea Acute Fatigue Acute Hyperkalemia Acute Lumbar stenosis Acute Near syncope Acute New onset atrial fibrillation Acute
[2017-09-14] MEDS: CLOPIDOGREL BISULFATE 75 MG TAB PO SCH (11:16)
[2017-09-14] MEDS: LEVOTHYROXINE 200 MCG TAB PO SCH (11:16)
[2017-09-14] MEDS: SACUBITRIL/VALSARTAN 24/26MG 1 EA TAB PO SCH ×2 (11:31→18:44)
--- NOTE | 2017-09-14 12:43 | ECHO ---
[email or web address] [address] [address] Main: [phone] Fax: [email or web address] Echocardiogram Name: ROSE MARIE HOUSE MR#: [id number] Study Date: 09/14/2017 Study Time: 11:42 AM Date of : 1935 Age: 82 year(s) Height: 170.2 cm (67 in.) Weight: 75.75 kg (167 lb.) BSA: 1.87 m2 Gender: Male Examination: Echo Indication: fluid up, mild elev bnp, known CAD, reduced EF Image Quality: Adequate Contrast: Requested by: Danyelle Dominguez BP: 99 mmHg/54 mmHg Heart Rate: Rhythm: Normal sinus rhythm Indication: fluid up, mild elev bnp, known CAD, reduced EF Procedure Staff Change Lead: Ana Kaufman [facility] Reading Physician: Herman Ambrosio MD Requesting Provider: Conclusions: Normal size left ventricle. Moderate concentric LV hypertrophy. Normal global systolic LV function. EF is 56 %. No regional wall motion abnormality. Grade 2 diastolic dysfunction (pseudonormalized LV filling pattern). The left atrium is moderately dilated. There is mild thickening of the mitral valve leaflets. Mild-moderate mitral annular calcification. Minimal aortic cusp calcification is noted. Mild aortic valve regurgitation is present. Mild tricuspid regurgitation is present. The pulmonary artery pressure is normal. The IVC is normal sized. Measurements: Chambers Valvular Assessment AV/MV Valvular Assessment TV/PV Normal Normal Normal Name Value Range Name Value Range Name Value Range Ao Lilly (MM): 3.5 cm (2.2 cm-3.7 AV Vmax: 1.25 m/s (1 m/s-1.7 TR Vmax: 2.64 mm/s ( - ) cm) m/s) TR PGmax: 28 mmHg ( - ) IVSd (2D): 1.5 cm (0.6 cm-1.1 AV maxP mmHg ( - ) syst. PAP: 33 mmHg ( - ) cm) LVOT Vmax: 0.72 m/s (0.7 m/s-1.1 PV Vmax: 1.04 m/s (0.6 m/s-0.9 LVDd (2D): 4.8 cm (4.2 cm-5.9 m/s) m/s) cm) MV E Vmax: 0.80 m/s ( - ) PV PGmax: 4 mmHg ( - ) LVDs (2D): 3.6 cm (2.1 cm-4 MV A Vmax: 0.83 m/s ( - ) cm) MV E/A: 0.96 ( - ) LVPWd (2D): 1.4 cm (0.6 cm-1 cm) Patient: ROSE MARIE HOUSE Study Date: 09/14/2017 Page 1 of 2 11:42 AM LVEF (BP): 56 % (>=55 %) RVDd(2D): 3.4 cm (1.9 cm-3.8 cmmm) Continued Measurements: Chambers Valvular Assessment AV/MV Valvular Assessment TV/PV Name Value Name Value Name Value LADs Lon.7 cm MV DecTime: 187 m/s CVP (est.): 5 mmHg LA Area: 30.5 cm2 MV E' Septal: 0.02 m/s LA Volume: 84 ml MV E/E' Septal: 39.40 LA Volume Index: 44.9 ml/m2 MV E/E' Lateral: 15.40 RA Area: 19.0 cm2 Additional Vessels Name Value Ao Ascendin.9 cm Findings: Left Ventricle: Normal size left ventricle. Moderate concentric LV hypertrophy. Normal global systolic LV function. EF is 56 %. No regional wall motion abnormality. Grade 2 diastolic dysfunction (pseudonormalized LV filling pattern). Right Ventricle: Normal size right ventricle. Normal RV function. Left Atrium: The left atrium is moderately dilated. Right Atrium: The right atrium is mildly to moderately dilated. Mitral Valve: The mitral valve is normal in appearance and function. There is mild thickening of the mitral valve leaflets. Mild-moderate mitral annular calcification. Mild mitral valve regurgitation is present. No mitral stenosis is present. Aortic Valve: The aortic valve is tri-leaflet and functions normally. Minimal aortic cusp calcification is noted. Mild aortic valve regurgitation is present. No aortic valve stenosis is present. Tricuspid Valve: The tricuspid valve is normal in appearance and function. Mild tricuspid regurgitation is present. The pulmonary artery pressure is normal. Right ventricular systolic pressure measures 33mmHg. Pulmonic Valve: The pulmonic valve is normal in appearance and function. Mild pulmonic valve regurgitation is noted. Aorta: Ascending aorta upper limits of normal size. The aorta is normal. Normal size aortic root measuring 3.5 cm. IVC: The IVC is normal sized. Pericardium: No pericardial effusion. (No Signature Object) Patient: ROSE MARIE HOUSE Study Date: 09/14/2017 Page 2 of 2 11:42 AM [id number]
--- NOTE | 2017-09-14 13:06 | SOAPPROG ---
SOAP Progress Note Assessment/Plan: Assessment: 1. Congestive heart failure. He has a history of chronic congestive heart failure with variable estimations of his ejection fraction over the years. Most recently, about 5 months ago, his ejection fraction was near normal at 48% . At that time he had only modest valvular heart disease. He presents now with weight gain with really no other significant symptoms that suggest heart failure. By exam he appears to be remarkably compensated. His brain atretic peptide, despite his weight gain, is about the lowest that I have seen on his EMR. Thus, despite his complaints of weight gain, he appears to be remarkably well compensated. 2. Coronary artery disease. This appears to be stable. He does have a slight troponin elevation although in reviewing his previous labs his troponins have been about this level chronically for several years now. 3. PAF. He is in sinus rhythm currently. He takes systemic anticoagulation. 4. Hyponatremia. This is new for him. He appears to be euvolemic by examination. Generally, he was admitted because of his weight gain. This is the 1st time that I have seen and however he does appear to be very well compensated. Recommendations: 1. He was placed on a fluid restriction of 1500 cc. 2. We will plan to monitor his electrolytes with a repeat study in the morning. 3. An echocardiogram has been ordered. 4. He was given 1 more dose of IV Lasix. After that, I would like to discontinue this medication. 5. He will be reassessed in the morning. 09/14/17 13:11 Subjective: The patient was seen and examined. His chart was reviewed. His cardiovascular history is characterized by known CAD. He presented in December of 2012 with jaw discomfort. That time, he underwent cardiac catheterization and ultimately 3 vessel bypass surgery with placement of a ALAS to the LAD. Subsequently in June of 2016 he underwent PCI of the little traverse LAD and circumflex in the setting of an atretic ALAS to the LAD and an occluded circumflex graft. Historically, he has had chronic congestive heart failure with an ejection fraction as low as 30%. His most recent ejection fraction by echocardiogram in April indicates an ejection fraction of 48% with only modest valvular heart disease. Furthermore, he has a history of paroxysmal atrial fibrillationwith previous cardioversion in July of 2016. He is on systemic anticoagulation. He has chronic dizziness. Several months ago his metoprolol was discontinued as this aggravated his dizziness. He contacted our office on Friday evening. He stated that he gained about 6 lb. Interestingly, his weight gain was not associated with dyspnea, orthopnea, PND or chest discomfort. He did state that he felt a little bit bloated. He was started on oral Lasix. Apparently he took 2 doses before he decided to come to the hospital here. On arrival here he was hemodynamically stable. He has been given IV Lasix and has lost several lb although he still is about 2 lb above his base weight. Objective: Vital Signs Temp Pulse Resp BP Pulse Ox 36.5 C 57 L 16 99/54 L 92 09/14/17 08:21 09/14/17 08:21 09/14/17 08:21 09/14/17 11:31 09/14/17 08:21 Laboratory Results 09/14/17 06:35 09/13/17 09/14/17 09/15/17 05:59 05:59 05:59 Output Total 850 800 Balance -850 -800 Laboratory Tests 09/14/17 09/14/17 00:00 06:35 Sodium 128 L 127 L AST 83 H Troponin I 0.109 H 0.121 H NT-Pro-B Natriuret Pep 1000 H TSH 9.130 H Physical Exam - Physical Exam General Appearance: WD/WN, no apparent distress Neck: non-tender, full range of motion Respiratory: lungs clear, normal breath sounds, No crackles, No rales, No rhonchi Cardiac/Chest: regular rate, rhythm, No edema, No gallop, No JVD, No bradycardia Peripheral Pulses: 2+: carotid (R), carotid (L) Abdomen: non-tender, soft Male Genitalia: deferred Rectal: deferred ICD10 Worksheet Patient Problems: Problems Problem Status Onset Acute exacerbation of CHF (congestive heart failure) Acute Elevated troponin Acute Fatigue Acute Hyponatremia Acute Shortness of breath Acute Atrial fibrillation with RVR Acute Cardiomegaly Acute Cardiomyopathy Acute Chronic Disease Mgmt/Transitional Care Acute Congestive cardiac failure Acute Dyspnea Acute Fatigue Acute Hyperkalemia Acute Lumbar stenosis Acute Near syncope Acute New onset atrial fibrillation Acute
[2017-09-14] MEDS: ALBUTEROL 60 PUFFS/8 GM MDI IH SCH ×3 (14:43→21:19)
[2017-09-14] MEDS ORDERED: FUROSEMIDE 20 MG/2 ML VIAL IVP SCH (15:00)
[2017-09-14] MEDS ORDERED: SACUBITRIL/VALSARTAN 24/26MG 1 EA TAB PO SCH (18:00)
[2017-09-14] MEDS: APIXABAN 2.5 MG TAB PO SCH (18:44)
[2017-09-14] MEDS ORDERED: APIXABAN 2.5 MG TAB PO SCH (21:00)
[2017-09-14] MEDS: TESTOSTERONE TP SCH (22:30)
[2017-09-14] MEDS: Propylene Glycol [Systane Balance] 1 DROP EACHEYE SCH (22:31)
[2017-09-14] MEDS: ETODOLAC 400 MG PO SCH (22:32)
[2017-09-14] MEDS: LORazepam 0.5 MG TAB PO PRN (22:37)
[2017-09-15] MEDS: ALBUTEROL 60 PUFFS/8 GM MDI IH SCH ×6 (03:49→20:50)
[2017-09-15] MEDS: LEVOTHYROXINE 200 MCG TAB PO SCH (06:07)
--- NOTE | 2017-09-15 08:46 | SOAPPROG ---
SOAP Progress Note Assessment/Plan: Assessment: Plan: 09/15/17 08:45 CHF with preserved EF--improved hyponatremia--he runs lower as a baseline. tolerating fluid restriction. BP low end persistent elevation of troponin--cardiology to explore further with nuc yolanda today overall his is improved, plan on d/c home Sleep study pending tomorrow night. Severe ALISIA expected and treating this should be of great hog tender benefit. Subjective: The patient is feeling better. No real complaints at this point, just questions. He hasn't been active here. No real thirst, tolerating fluid restriction well. No cardiac ACS symptoms Objective: Vital Signs Temp Pulse Resp BP Pulse Ox 36.4 C 59 L 18 90/58 L 97 09/15/17 07:50 09/15/17 07:50 09/15/17 07:50 09/15/17 07:50 09/15/17 07:50 Laboratory Results 09/15/17 03:52 09/14/17 09/15/17 09/16/17 05:59 05:59 05:59 Intake Total 1300 Output Total 850 1525 Balance -850 -225 Gen: NAD Lungs: CTAB Heart: RRR no murmur tele NSR EKG stable sinus, prior SC, no ST seg changes LE's no edema Troponin remains to be elevated, stable historically sodium 129 (slow improvement) ICD10 Worksheet Patient Problems: Problems Problem Status Onset Acute exacerbation of CHF (congestive heart failure) Acute Elevated troponin Acute Fatigue Acute Hyponatremia Acute Shortness of breath Acute Atrial fibrillation with RVR Acute Cardiomegaly Acute Cardiomyopathy Acute Chronic Disease Mgmt/Transitional Care Acute Congestive cardiac failure Acute Dyspnea Acute Fatigue Acute Hyperkalemia Acute Lumbar stenosis Acute Near syncope Acute New onset atrial fibrillation Acute
--- NOTE | 2017-09-15 10:37 | PDCARPN ---
Cardiology Progress Note Chief Complaint: Patient reporting he would like to go home. Assessment/Plan: Assessment: 82 yo male with history of CAD (CABG X 3V 12/22, ALAS to LAD (atretic), SVG-Lilly, SVG-Cir (occl)), PCI with ADAMARIS implantation of LAD and circumflex (05/28), PAF, chronic ischemic systolic CHF (EF 45-50% ECHO 05/09/2017), hypertension, hyperlipidemia, hypothyroidism, chronic renal insufficiency. Admitted on 2017 for weight gain in bloating sensation, patient reporting 6 lb weight gain over week, with no significant weight loss despite being placed on oral Lasix. Echocardiogram done on 09/14/2017 showing normal LV size, moderate concentric LVH , normal LV systolic function with EF of 56% with no wall motion abnormalities. Grade 2 diastolic dysfunction, LA is moderately dilated, [id number] mitral annular calcification, mild AI, mild TR, normal pulmonary artery pressures. Admission BNP was 1000. Patient also noted to have elevated troponin initially of 0.109, elevating up to 0.121, with trending down at 0.115 09/14. He reports no history of chest pressure or pain. Reports no significant shortness of breath, just bloating sensation. Treated with IV diuresis. Patient also noted to be hyponatremic, placed on fluid restriction. Today: Weight is down approximately 2 kilos. Since hospital admission. Patient reporting bloating sensation has improved, he is noted to be mildly hypotensive with systolics in the 90s. Asymptomatic. He denies of any chest pressure or pain. Remains in sinus rhythm. No malignant arrhythmias or pauses noted. Plan: 1. Congestive heart failure: Recent echocardiogram showing improvement in ejection fraction to 56%. Mildly elevated BNP. Reporting significant improvement with IV diuresis. Systolic blood pressure in the 90s, hold diuretics today. Have discussed with Dr. Whalen, Heart Failure Specialist, he will plan to see later today. Patient currently on entresto. Metoprolol is on hold due to hypotension. 2. CAD: He has approximately 15 months from PCI of his LAD and circumflex. He has had no chest pain, shortness of breath. Noted mildly elevated troponin, peaking at 0.121. Discussed with Dr. Mendoza and Dr. Whalen, with recent hospitalization for CHF, known history of CAD, plan on Shayla MPI stressed today. Continue on clopidogrel. Not on aspirin due to being on Eliquis. Secondary risk prevention with pravastatin. 3. Paroxysmal atrial fibrillation: Patient remains in sinus rhythm. Currently off metoprolol due to hypotension. Currently on anticoagulation of Eliquis. 4. Hyponatremia: Improved overnight after fluid restriction and IV Lasix. Continue on fluid restriction, continue to monitor. 09/15/17 10:35 Subjective: He denies of any chest pressure or pain. Reports no lightheadedness. denies of any orthopnea, feels that his bloating has improved. Denies of any palpitations, PND, near-syncope or syncopal events. Reports no significant swelling. Reviewed/Discussed With: other (Allen ROMERO, Dr Whalen and Dr Mendoza) Objective: Vital Signs (8 Hrs) Temp Pulse Resp BP Pulse Ox 09/15/17 07:50 36.4 C 59 L 18 90/58 L 97 09/15/17 04:00 36.3 C 67 18 103/61 98 Intake/Output (24 Hrs) 09/14/17 09/15/17 09/16/17 05:59 05:59 05:59 Intake Total 1300 Output Total 850 1525 200 Balance -850 -225 -200 Intake: Oral (ml) 1300 IV Intake (ml) 0 Output: Urine (ml) 850 1525 200 Urinal 850 1525 200 Other: Weight 76.7 kg 75.4 kg Intake Quantity Yes Sufficient Number of Voids 2 Urinal 1 Result Diagrams: 09/14/17 00:00 09/15/17 03:52 Cardiac Labs: Cardiac Lab Results (72 Hrs) 09/14/17 09/14/17 14:10 06:35 Troponin I 0.115 H 0.121 H - Physical Exam Constitutional: WDWN, no apparent distress Ears, Nose, Mouth, Throat: moist mucous membranes Cardiovascular: regular rate and rhythm, no rubs, systolic murmur ( 1/6 along left sternal border), pulses symmetric bilat, No jugular vein distention, No carotid bruit Peripheral Pulses: 1+: dorsalis-pedis (R), dorsalis-pedis (L), 2+: carotid (R), carotid (L) Respiratory: other ( diminished in bases bilateral, no rhonchi, rales, or wheezing noted.) Gastrointestinal: normoactive bowel sounds, no masses, No tenderness Skin: no rashes, warm, no edema Neurologic: AAOx3 Psychiatric: cooperative, interactive, following commands ICD10 Worksheet Patient Problems: Problems Problem Status Onset Fatigue Acute Cardiomyopathy Acute Acute exacerbation of CHF (congestive heart failure) Acute Hyponatremia Acute Chronic Disease Mgmt/Transitional Care Acute Lumbar stenosis Acute Near syncope Acute Atrial fibrillation with RVR Acute Hyperkalemia Acute Congestive cardiac failure Acute Dyspnea Acute New onset atrial fibrillation Acute Shortness of breath Acute Fatigue Acute Cardiomegaly Acute Elevated troponin Acute
[2017-09-15] MEDS ORDERED: REGADENOSON 0.4 MG/5 ML SYR IVP ONE (10:38)
[2017-09-15] MEDS: OMEGA-3 FATTY ACIDS 1,000 MG CAP PO SCH (12:27)
[2017-09-15] MEDS: PRAVASTATIN SODIUM 20 MG TAB PO SCH (12:27)
[2017-09-15] MEDS: APIXABAN 2.5 MG TAB PO SCH ×2 (12:28→19:08)
[2017-09-15] MEDS: CLOPIDOGREL BISULFATE 75 MG TAB PO SCH (12:28)
[2017-09-15] MEDS: CHOLECALCIFEROL VIT D3 1,000 UNITS TAB PO SCH (12:28)
[2017-09-15] MEDS: SACUBITRIL/VALSARTAN 24/26MG 1 EA TAB PO SCH (12:28)
[2017-09-15] MEDS: Propylene Glycol [Systane Balance] 1 DROP EACHEYE SCH ×2 (12:29→20:51)
--- NOTE | 2017-09-15 13:49 | CPR ---
[f rep st] NONINVASIVE CARDIAC PROCEDURE REPORT Lexiscan injection of Lexiscan MPI study. INDICATION FOR PROCEDURE: Known history of CAD, recent hospitalization for congestive heart failure, and mildly elevated troponin on decline. PRE: After obtaining informed consent and assuring patient's n.p.o. status of caffeine for greater t purcell 12 hours, patient was placed on electrocardiogram. Initial EKG shows sinus rhythm with first-deg ree AV block, left bundle branch block. Patient denies any chest pain, shortness of breath, or sympt oms suggesting ischemia. Initial blood pressure 102/60, saturation 93% on room air. INJECTION: The patient was given Lexiscan slow IV push followed by nuclear isotope. Within 2 minute s, patient reporting some mild shortness of breath post injection. No significant EKG changes and vi colt signs remained stable. Within 5 minutes post injection, patient reported all symptoms had subsid ed. Final blood pressure 100/52, saturation 93%, heart rate 66; no electrocardiogram changes. IMPRESSION: 82-year-old male recently admitted for mild heart failure, noted to have elevated tropon in on admission, known history of previous stenting of the left anterior descending and circumflex 15 months ago. Mild troponin elevation. Lexiscan myocardial perfusion imaging for evaluation of ische fartun. No significant symptoms suggesting ischemia during injection and no significant EKG changes. V ital signs are stable. Patient is in nuclear medicine finishing post-stress imaging at this time. /[id number]/MODL
--- NOTE | 2017-09-15 15:28 | ASMTCMCOM ---
CM Note CM Note Notes: 09/15/2017 Case Management Note Met with pt and Missy to discuss d/c needs. There are no identified case management needs. Pt is independent in ADL's prior to admission. Pt and enjoy Jeep 4 x 4 vacations recently returning from [place]. Case Management d/c poc: home independent with follow up as directed. Date Signed: 09/15/2017 03:27 PM Electronically Signed By:Jaqueline Llamas RN
--- NOTE | 2017-09-15 15:58 | SOAPPROG ---
[facility] Progress Note Assessment/Plan: Assessment: CHF MD hospital follow up note: 82 y/o man with CAD s/p CABG x 3V in 12/22 then ADAMARIS to LAD and LCX in 05/28 with PAF, chronic LBBB and acute on chronic diastolic CHF exacerbation. He had his beta chichi stopped two months ago for dizziness and HR's 40bpm. He was in [place] and gained 6lbs with increasing TURK and abdominal swelling. Here updated echo 09/26 shows LVEF 56% with moderate LVH and diastolic dysfunction, mild AI, mild MR and TR and estimated PAS 33mHg. Lexiscan cardiolite today LVEF 39% with no ischemia. REC: 1)stop Entresto as I think causing hypotension. 2)start Losartan 25mg PO qday today 3)start empiric daily Demadex 20mg PO qam. 4)if okay BP and labs stable could be discharged home tomorrow. 5)arrange f/u CHF-[facility] in 7-10 days and New PT FELIPA-Chris or Tod to discuss putting in TRAINING AND QUALITY MANAGER-P in near future. I am concerned off his beta chichi is why he went into CHF and his electrical system of heart damaged too with LBBB and AV janelle disease and can't tolerate a beta chichi without TRAINING AND QUALITY MANAGER. 09/15/17 15:53 Subjective: now after IV lasix he feels well. Denies CP, palpitations, PND or syncope. His abdominal swelling is less. He is grumpy and wants to go home tonight. Objective: Vital Signs Temp Pulse Resp BP Pulse Ox 36.8 C 70 18 105/61 94 09/15/17 12:00 09/15/17 12:00 09/15/17 12:00 09/15/17 12:00 09/15/17 12:00 Laboratory Results 09/15/17 03:52 09/14/17 09/15/17 09/16/17 05:59 05:59 05:59 Intake Total 1300 Output Total 850 1525 200 Balance -850 -225 -200 Physical Exam - Physical Exam General Appearance: alert EENT: normal ENT inspection Neck: non-tender Respiratory: lungs clear Cardiac/Chest: regular rate, rhythm, JVD, systolic murmur, No gallop Peripheral Pulses: 2+: carotid (R), carotid (L), femoral (R), femoral (L), dorsalis-pedis (R), dorsalis-pedis (L) Abdomen: non-tender, No guarding, No rebound, No hepatomegaly, No splenomegaly Skin: warm/dry Extremities: No pedal edema Neuro/Psych: alert ICD10 Worksheet Patient Problems: Problems Problem Status Onset Acute exacerbation of CHF (congestive heart failure) Acute Elevated troponin Acute Fatigue Acute Hyponatremia Acute Shortness of breath Acute Atrial fibrillation with RVR Acute Cardiomegaly Acute Cardiomyopathy Acute Chronic Disease Mgmt/Transitional Care Acute Congestive cardiac failure Acute Dyspnea Acute Fatigue Acute Hyperkalemia Acute Lumbar stenosis Acute Near syncope Acute New onset atrial fibrillation Acute
[2017-09-15] MEDS: LOSARTAN POTASSIUM 25 MG TAB PO SCH (16:45)
[2017-09-15] MEDS: TORSEMIDE 20 MG TAB PO SCH (16:45)
--- NOTE | 2017-09-15 17:58 | SOAPPROG ---
SOAP Progress Note Assessment/Plan: Assessment: Plan: 09/15/17 08:45 CHF with preserved EF--improved hyponatremia--he runs lower as a baseline. tolerating fluid restriction. BP low end persistent elevation of troponin--cardiology to explore further with nuc yolanda today overall his is improved, plan on d/c home Sleep study pending tomorrow night. 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 09/15/17 17:57 addendum to today's note. Overall complexity of problems will mandate the need for a stay of greater than 2 midnights for better assessment of his unstable vital signs, hyponatremia, CHF with pEF. See further plan as per Dr Whalen. Issues discussed with patient and Dr Whalen. Objective: Vital Signs Temp Pulse Resp BP Pulse Ox 36.8 C 62 18 118/68 92 09/15/17 16:00 09/15/17 16:00 09/15/17 16:00 09/15/17 16:00 09/15/17 16:00 Laboratory Results 09/15/17 03:52 09/14/17 09/15/17 09/16/17 05:59 05:59 05:59 Intake Total 1300 Output Total 850 1525 200 Balance -850 -225 -200 ICD10 Worksheet Patient Problems: Problems Problem Status Onset Acute exacerbation of CHF (congestive heart failure) Acute Elevated troponin Acute Fatigue Acute Hyponatremia Acute Shortness of breath Acute Atrial fibrillation with RVR Acute Cardiomegaly Acute Cardiomyopathy Acute Chronic Disease Mgmt/Transitional Care Acute Congestive cardiac failure Acute Dyspnea Acute Fatigue Acute Hyperkalemia Acute Lumbar stenosis Acute Near syncope Acute New onset atrial fibrillation Acute
[2017-09-15] MEDS: ETODOLAC 400 MG PO SCH (20:49)
[2017-09-15] MEDS: TESTOSTERONE TP SCH (20:50)
[2017-09-15] MEDS: LORazepam 0.5 MG TAB PO PRN (22:11)
[2017-09-16] MEDS: ALBUTEROL 60 PUFFS/8 GM MDI IH SCH ×3 (01:05→09:38)
[2017-09-16] MEDS: LEVOTHYROXINE 200 MCG TAB PO SCH (06:08)
--- NOTE | 2017-09-16 08:26 | SOAPPROG ---
SOAP Progress Note Assessment/Plan: Assessment: 82 yo male with h/o CHF, atrial fibrillation, s/p CABG admitted with acute mild CHF exacerbation. BNP up to 1000 from baseline around 600. Followed by Dr[address] Whalen as outpt. Plan: CHF with preserved EF: losartan 25mg daily and torsemide 20mg daily per Dr. Whalen, plan to f/u with EP as outpt for possible pacer placement and resumption of BB, will also f/u outpt with Dr. Whalen in 7-10 days for CHF. Hyponatremia: up to 132 today Elevated troponin: stable, nuc stress test yesterday without ischemia H/o atrial fibrillation: on eliquis, currently in SR Dispo: will d/c home this AM and plan for close f/u outpt with cardiology as discussed above as well as PCP 09/16/17 08:26 Subjective: Galindo is resting comfortably in bed this morning. Says he is feeling okay so far , but was quite dizzy yesterday after taking the torsemide. Objective: Vital Signs Temp Pulse Resp BP Pulse Ox 36.4 C 60 16 91/56 L 95 09/16/17 04:00 09/16/17 04:00 09/16/17 04:00 09/16/17 04:00 09/16/17 04:00 Laboratory Results 09/16/17 03:38 09/15/17 09/16/17 09/17/17 05:59 05:59 05:59 Intake Total 1300 1300 Output Total 1525 1425 Balance -225 -125 Gen- AAOx3, slightly hypotensive this AM 90s/50s Head- normocephalic, atraumatic EENT- EOMI, PEERL, JVP < 4cm Resp- LCTAB, no wheezing, rhonchi, rales CV- S1S2, no murmurs, rubs, gallops Abd- SNT, nondistended, round Extremities- no peripheral edema Neuro- grossly intact ICD10 Worksheet Patient Problems: Problems Problem Status Onset Acute exacerbation of CHF (congestive heart failure) Acute Elevated troponin Acute Fatigue Acute Hyponatremia Acute Shortness of breath Acute Atrial fibrillation with RVR Acute Cardiomegaly Acute Cardiomyopathy Acute Chronic Disease Mgmt/Transitional Care Acute Congestive cardiac failure Acute Dyspnea Acute Fatigue Acute Hyperkalemia Acute Lumbar stenosis Acute Near syncope Acute New onset atrial fibrillation Acute
[2017-09-16] MEDS: OMEGA-3 FATTY ACIDS 1,000 MG CAP PO SCH (08:54)
[2017-09-16] MEDS: PRAVASTATIN SODIUM 20 MG TAB PO SCH (08:54)
[2017-09-16] MEDS: CHOLECALCIFEROL VIT D3 1,000 UNITS TAB PO SCH (08:55)
[2017-09-16] MEDS: CLOPIDOGREL BISULFATE 75 MG TAB PO SCH (08:55)
[2017-09-16] MEDS: APIXABAN 2.5 MG TAB PO SCH (08:55)
[2017-09-16] MEDS: LOSARTAN POTASSIUM 25 MG TAB PO SCH (08:55)
[2017-09-16] MEDS: Propylene Glycol [Systane Balance] 1 DROP EACHEYE SCH (08:56)
[2017-09-16] MEDS: TORSEMIDE 20 MG TAB PO SCH (08:56)
[2017-09-16 09:30] VITALS: BP 100/72
--- NOTE | 2017-09-16 09:33 | PDIAF ---
- Diagnosis Diagnosis: CHF, acute exacerbation Code Status: Full Code - Medication Management Discharge Medications: Medications to Continue on Transfer Fluticasone Nasal [Flonase Nasal [place]] 2 sprays EACHNARE DAILY PRN 06/24/16 [ Last Taken 08/13/16] Zolpidem Tartrate [Ambien 5MG (*)] 2.5 mg PO HS PRN 06/24/16 [Last Taken ] Testosterone [Androderm] 1 patch TP HS 07/21/16 [Last Taken 09/12/17] Apixaban [Eliquis] 2.5 mg PO BID 08/12/16 [Last Taken 09/13/17 18:00] Albuterol [Proventil Inhaler HFA (*)] 1 - 2 puffs IH Q4HRS 09/14/17 [Last Taken Unknown] Cholecalciferol Vit D3 [Vitamin D3 (*)] 1,000 units PO DAILY 09/14/17 [Last Taken Unknown] Clopidogrel Bisulfate [Plavix] 75 mg PO DAILY 09/14/17 [Last Taken 09/13/17] Etodolac [ETODOLAC] 400 mg PO HS 09/14/17 [Last Taken 09/12/17] Herbals/Supplements -Info Only 1 ea PO DAILY 09/14/17 [Last Taken Unknown] LORazepam [Ativan (*)] 0.25 - 0.5 mg PO HS PRN 09/14/17 [Last Taken 09/12/17] Levothyroxine Sodium [Levoxyl] 200 mcg PO DAILY06 09/14/17 [Last Taken 09/13/17] [place]-3 Fatty Acids [Fish Oil 1000 mg (*)] 1,000 mg PO DAILY 09/14/17 [Last Taken Unknown] Propylene Glycol [Systane Balance] 1 drop EACHEYE BID 09/14/17 [Last Taken Unknown] Simvastatin 10 mg PO HS 09/14/17 [Last Taken 08/24/17] traZODone [traZODONE 50MG (*)] 25 mg PO HS PRN 09/14/17 [Last Taken 09/07/17] Acetaminophen [Tylenol 325mg (*)] 650 mg PO Q4HRS PRN tab 09/16/17 [Last Taken Unknown] Losartan Potassium [Cozaar 25 mg (*)] 25 mg PO DAILY 60 Days tab 09/16/17 [ Last Taken Unknown] Discharge Medications: Refer to the Discharge Home Medication list for PRN reason. - Orders Isolation Type: None Diet Recommendation: no restrictions on diet Diet Texture: Regular Texture Diet - Follow Up Care Current Providers and Referrals: You Gómez MD [Primary Care Provider] - (Follow up in the office on Friday for labs please :) ) Brant Whalen MD [Medical Doctor] - (Follow up with Dr Whalen on September 24 at 1: 15 pm) Patient,NotPresent [Unknown] - As per Instructions Sj Baron MD [Medical Doctor] - (Follow up with Dr Baron, at [facility] [place] [facility] on 10/01/2017 Check in time at 10:45 am)
--- NOTE | 2017-09-16 10:08 | PDMN ---
Medical Necessity Medical necessity: los>2mn for unstable VS, hyponatremia, CHF w/pEF; requires ongoing tele and BP monitoring, follow Na; comorbid ALISIA, ICM, CAD, and CKD; per order and progress note 09/15/17
--- NOTE | 2017-09-16 10:10 | ASDISCHSUM ---
Discharge Information Plan Status:Home with No Needs Medically Cleared to Leave:09/16/2017 Discharge Date:09/16/2017 CM D/C Disposition:Home, Routine, Self-Care ADT D/C Disposition:Home, Routine, Self-Care Projected Discharge Date:09/16/2017 Transportation at D/C:Family Discharge Delay Reason: Follow-Up Date:09/16/2017 Discharge Slot: Final Diagnosis: Placement Information Patient Contact Information Contact Name:ANGELA Relationship: Address:[address] Work Phone: City:[place] Alternate Phone: State/Zip Code:[place] [address] Email: Financial Information Financial Class:Medicare Primary Plan Desc:MEDICARE OUTPATIENT Primary Plan Number:[id number] Secondary Plan Desc:[facility] Secondary Plan Number:[id number] Assessment Information LACE LACE Length of stay for Answers: 2 days current admission Acuity / Level of Answers: No Care: Did the patient have an inpatient admission? Comorbidities - select Answers: Congestive heart failure all that apply Coronary Artery Disease # of Emergency department Answers: 1-2 visits in the last 6 months Score: 7 Date Signed: 09/16/2017 10:09 AM Electronically Signed By:Jaqueline Llamas RN [facility] CM Progress Note CM Note CM Note Notes: Chart reviewed. Patient is 82 year old male who came in though the ED with SOB. Reports an 8lb weight gain. Normally independent with support from . Needs TBD at this time. CM to follow. Plan: TBD Date Signed: 09/14/2017 09:31 AM Electronically Signed By:Padmini Senkow, RN [facility] CM Progress Note CM Note CM Note Notes: 09/15/2017 Case Management Note Met with pt and Missy to discuss d/c needs. There are no identified case management needs. Pt is independent in ADL's prior to admission. Pt and enjoy Jeep 4 x 4 vacations recently returning from [place]. Case Management d/c poc: home independent with follow up as directed. Date Signed: 09/15/2017 03:27 PM Electronically Signed By:Jaqueline Llamas RN Case Management Discharge Plan Note Case Management Discharge Discharge Order Complete? Answers: Yes Patient to Obtain Answers: Independently Medications Transportation Arranged Answers: Family/Friends Discharge Comments Notes: 09/16/2017 Case Management Note Pt to discharge independent with follow up as directed. Date Signed: 09/16/2017 10:08 AM Electronically Signed By:Jaqueline Llamas RN Intervention Information Intervention Type:*BANKS-Signed Date of Service:09/15/2017 11:38 AM Patient Type:Observation Staff Member:Violette Mercedes Hours: Discipline: Severity: Comment:
--- NOTE | 2017-09-16 10:14 | GDS ---
[f rep st] DISCHARGE SUMMARY PRIMARY DIAGNOSIS: Acute on chronic congestive heart failure exacerbation with preserved ejection fraction. HISTORY OF PRESENT ILLNESS: This is an 82-year-old male who presented with an acute on chronic diastolic congestive heart failure exacerbation. He has a history of coronary artery disease status post CABG x3 in 12/2012, and a stent to his LAD and left circ in 05/2016. He also has a history of paroxysmal atrial fibrillation, chronically anticoagulated on Eliquis, chronic left bundle branch block, and a history of CHF exacerbations. He recently traveled down to [place] and noticed a 6-pound weight gain with increased shortness of breath and abdominal swelling. He was seen by Dr. Whalen as an outpatient. He recently had an echocardiogram while in the hospital which showed an ejection fraction of 56% with moderate left ventricular hypertrophy and diastolic dysfunction, mild aortic insufficiency, mild mitral regurgitation and tricuspid regurgitation. He also had a nuclear stress test which estimated his ejection fraction to be 39% and did not show any evidence of ischemia. Dr. Nieto adjusted the patient's blood pressure medications due to symptomatic hypotension. He has discontinued his Entresto, started losartan 25 mg p.o. daily and have had the patient on torsemide 20 mg daily. Today, on exam, the patient's BNP has come down from 1000 on admission to 472, his JVP is less than 4 cm, his blood pressure is on the low side in the 90s over 50s. We will hold his torsemide until he is followed up in the office on Friday for repeat labs and will continue to monitor his blood pressure closely over the next few days. We can then consider restarting the torsemide daily if appropriate at that time. He will also plan to follow up with Dr. Whalen in the office in 7 to 10 days as well as with Dr. Baron to discuss the possibility of a pacer and resumption of his beta chichi in the future. As noted above, he will follow up in our office as well on Friday for repeat labs. DISCHARGE MEDICATIONS: 1. Zolpidem 2.5 mg p.o. at bedtime p.r.n. 2. Flonase 2 sprays each nares daily p.r.n. 3. Testosterone 1 patch transdermally daily. 4. Eliquis 2.5 mg p.o. twice daily. 5. Plavix 75 mg p.o. daily. 6. [place]-3 fatty acids 1000 mg p.o. daily. 7. Multivitamin 1 tablet p.o. daily. 8. Vitamin D3 1000 units p.o. daily. 9. Trazodone 25 mg p.o. at bedtime p.r.n. 10. Albuterol 1 to 2 puffs q.4 hours p.r.n. 11. Ativan 0.25 to 0.5 mg p.o. at bedtime p.r.n. 12. Etodolac 400 mg p.o. at bedtime. 13. Levothyroxine 200 mcg p.o. daily. 14. Simvastatin 10 mg p.o. at bedtime. 15. Propylene glycol 1 drop each eye twice daily. We will be discontinuing the patient's Entresto, metoprolol and Lasix at this time. /[id number]/MODL MTDD
--- NOTE | 2017-09-19 10:10 | PQFORM ---
PHYSICIAN QUERY FORM Needs Your Response This query form is being sent to you to assure this patient record is coded properly. Please respond to the question below: HOME HEALTH CARE CASE MANAGER QUESTION: Dear BRYAN Webb, In reviewing this patients medical record it is noted the patient had and was treated for the diagnosis of "Hyponatremia." Patient presented with a sodium level of 128 and weight gain. Both ER and H&P state patient had the diagnosis of "Hyponatremia." SOAP progress notes dated 09/14-09/16 patient was diagnosed with "Hyponatremia" treated with fluid restriction. "Hyponatremia" is also noted as a diagnosis in both the 09/15 Cardiology progress notes and the medical necessity notes. After study, should the diagnosis of Hyponatremia be included in the Discharge summary? __X___ Yes No Unable to determine Other more appropriate diagnosis (please specify) Thank you BHARTI Price HIM/Coding Dept. [phone] INSTRUCTIONS FOR RESPONSE: Answer question by clicking on the "Edit Document" button. Move cursor to area below the stars. When complete, hit "Save." Click on the "Sign" button, then click "Sign" again. Type in your PIN and hit "Enter." MTDD
== END 2017-09-16 10:31 | disposition home or self-care (01) | DRG 292 ==
LOC: EDUNIT# → OBSVTOIN 09-14 02:14 → F2W 09-14 02:49
PROVIDERS: ADMIT Student in an Organized Health Care Education/Training Program; ATTEND Student in an Organized Health Care Education/Training Program
DX: I50.33 Acute on chronic diastolic (congestive) heart failure (principal); E87.1 Hypo-osmolality and hyponatremia; I48.0 Paroxysmal atrial fibrillation; I44.7 Left bundle-branch block, unspecified; I08.3 Combined rheumatic disorders of mitral, aortic and tricuspid valves; E78.5 Hyperlipidemia, unspecified; E03.9 Hypothyroidism, unspecified; N18.3 Chronic kidney disease, stage 3 (moderate); G47.33 Obstructive sleep apnea (adult) (pediatric); Z79.01 Long term (current) use of anticoagulants; Z87.891 Personal history of nicotine dependence; Z95.1 Presence of aortocoronary bypass graft; Z95.5 Presence of coronary angioplasty implant and graft
CPT/HCPCS: 84481-90; 96374; A9500; G0378; J1940; J2785

== ENCOUNTER → 2017-09-16 | Outpatient (CLI) | payer OTHER | LOC: FCPNEURO 20:00 | PROVIDERS: ATTEND Psychiatry & Neurology Sleep Medicine | DX: G47.33 Obstructive sleep apnea (adult) (pediatric) (principal); G47.31 Primary central sleep apnea; G47.61 Periodic limb movement disorder ==

== ENCOUNTER → 2017-10-01 | Outpatient (CLI) | payer OTHER | LOC: BHLMT 11:00 | PROVIDERS: ATTEND Internal Medicine Cardiovascular Disease | DX: I25.10 Atherosclerotic heart disease of native coronary artery without angina pectoris (principal); Z95.1 Presence of aortocoronary bypass graft; I50.9 Heart failure, unspecified | CPT/HCPCS: 93005-PO ==

== ENCOUNTER → 2017-10-21 | Outpatient (CLI) | payer OTHER | LOC: FCPNEURO 20:00 | PROVIDERS: ATTEND Psychiatry & Neurology Sleep Medicine | DX: G47.39 Other sleep apnea (principal); G25.3 Myoclonus; G47.61 Periodic limb movement disorder ==

== ENCOUNTER 2018-08-03 10:42 | Observation (INO) | payer OTHER ==
[2018-08-03] MEDS ORDERED: ceFAZolin 2 GM/DEXTROSE 100 ML IV ONE (10:52)
[2018-08-03] MEDS ORDERED: NS 1,000 ML IV ONE (10:52)
[2018-08-03] MEDS ORDERED: BACITRACIN IRRIGATION/NS 50,000 UNITS/1,000 ML BTL IRR ONE (10:52)
--- NOTE | 2018-08-03 10:54 | PDANEPAE ---
ANE History of Present Illness CHF, cardiomyopathy ANE Past Medical History - Cardiovascular History Hx Hypertension: No Hx Arrhythmias: Yes Hx Chest Pain: No Hx Coronary Artery / Peripheral Vascular Disease: Yes Hx CHF / Valvular Disease: Yes Hx Palpitations: Yes Cardiovascular History Comment: CABG X 3 -2012. A fib. CHF-EF 39% - Pulmonary History Hx COPD: No Hx Asthma/Reactive Airway Disease: No Hx Recent Upper Respiratory Infection: No Hx Oxygen in Use at Home: No Hx Sleep Apnea: Yes Pulmonary History Comment: ALISIA- MILD, MOUTH APPLIANCE. ASTHMA- EXERCISE INDUCED - Neurologic History Hx Cerebrovascular Accident: No Hx Seizures: No Hx Dementia: No Neurologic History Comment: NUMBNESS LEGS TO FEET. SOME FINGER NUMBNESS - Endocrine History Hx Diabetes: No Hypothyroid: Yes Hyperthyroid: No Obesity: no Endocrine History Comment: LOW TRHYROID - Renal History Hx Renal Disorders: Yes Renal History Comment: Cr 1.4. hx of hyponatremia, currently Na 137 - Liver History Hx Hepatic Disorders: No - Neurological & Psychiatric Hx Hx Neurological and Psychiatric Disorders: No - Cancer History Hx Cancer: No - Congenital Disorder History Hx Congenital Disorders: No - GI History Hx Gastrointestinal Disorders: No - Other Health History Other Health History: PSORIASIS - Chronic Pain History Chronic Pain: No - Surgical History Prior Surgeries: HAS HAD 24 SURG. FUSION T10-S1. CABG X3 VESSEL 12/2012. NECK SURG R HAND SURG. R TKA LAST FUSION 03/2014 ANE Review of Systems Review of systems is: negative Review of Systems: - Exercise capacity Exercise capacity: limited by disability ANE Patient History - Allergies Allergies/Adverse Reactions: levofloxacin [From Levaquin] Allergy (Severe, Verified 07/24/18 09:59) Other-Enter Comments Quinolones Allergy (Verified 07/24/18 09:59) Other-Enter Comments - Home Medications Home medications: home medication list seen and reviewed Home Medications: Zolpidem Tartrate [Ambien 5MG (*)] 2.5 mg PO HS PRN 06/24/16 [Last Taken ] Apixaban [Eliquis] 2.5 mg PO BID 08/12/16 [Last Taken 09/13/17 18:00] Cholecalciferol Vit D3 [Vitamin D3 (*)] 1,000 units PO DAILY 09/14/17 [Last Taken Unknown] Clopidogrel Bisulfate [Plavix] 75 mg PO DAILY 09/14/17 [Last Taken 09/13/17] Levothyroxine Sodium [Levoxyl] 200 mcg PO DAILY06 09/14/17 [Last Taken 09/13/17] [place]-3 Fatty Acids [Fish Oil 1000 mg (*)] 1,000 mg PO DAILY 09/14/17 [Last Taken Unknown] Bumetanide [Bumex (*)] 1 mg PO Q2D 07/24/18 [Last Taken Unknown] Eplerenone [Inspra 25 MG (*)] 25 mg PO DAILY 07/24/18 [Last Taken Unknown] Metoprolol Succinate Xr [Toprol Xl 25 mg (*)] 25 mg PO HS 07/24/18 [Last Taken Unknown] Rosuvastatin Calcium [Crestor 10mg (RX)] 5 mg PO DAILY 07/24/18 [Last Taken Unknown] Testosterone IM [Testosterone 100mg/ml IM inj (*)] 0 mg IM Q21D 07/24/18 [Last Taken Unknown] - NPO status NPO Status: no food or drink >8 hours - Anes Hx Anes Hx: no prior problems - Smoking Hx Smoking Status: Former smoker Marijuana use: No - Family Anes Hx Family Anes Hx: none Family Hx Anesthesia Complications: NONE ANE Physical Exam - Airway Neck exam: FROM Mallampati Score: Class 2 Mouth exam: normal dental/mouth exam - Pulmonary Pulmonary: no respiratory distress, clear to auscultation - Cardiovascular Cardiovascular: regular rate and rhythym, no murmur, rub, or gallop - ASA Status ASA Status: IV ANE Anesthesia Plan Anesthesia Plan: general endotracheal anesthesia, GA w LMA, GA with mask
--- NOTE | 2018-08-03 10:58 | PDGENHP ---
History & Physical Chief Complaint: chf History of Present Illness: chf symptoms Relevant Physical Exam: s1s2 cta ao3 Cardiorespiratory Assessment: for biv pacemaker
[2018-08-03] MEDS ORDERED: ETOMIDATE 20 MG/10 ML VIAL ONE (11:01)
[2018-08-03] MEDS ORDERED: fentaNYL 100 MCG/2 ML INJ ONE (11:01)
[2018-08-03] MEDS ORDERED: ROCURONIUM 50 MG/5 ML VIAL ONE (11:04)
[2018-08-03 11:27] LABS: PLATELET COUNT 166 10^3/uL (150-400)
[2018-08-03] MEDS ORDERED: BUPIVACAINE 0.75% 10 ML SDV ONE (11:33)
[2018-08-03] MEDS ORDERED: IOPAMIDOL (ISOVUE-300) 100 ML BTL ONE ×2 (11:33→12:15)
[2018-08-03] MEDS ORDERED: LIDOCAINE 1% 300 MG/30 ML SDV ONE (11:33)
[2018-08-03 11:35] LABS: INR 1.15 (0.83-1.16); PROTIME(PATIENT) 14.2 SEC (12.0-15.0)
[2018-08-03] MEDS ORDERED: PHENYLEPHRINE HCL 100 MCG/ML SYR ONE (11:49)
[2018-08-03] MEDS ORDERED: ePHEDrine SULFATE 25 MG/5 ML SYR ONE (12:58)
[2018-08-03] MEDS ORDERED: SUGAMMADEX SODIUM 200 MG/2 ML VIAL IVP ONE (13:22)
[2018-08-03] MEDS ORDERED: ONDANSETRON 4 MG/2 ML VIAL ONE (13:22)
[2018-08-03] MEDS ORDERED: NALOXONE HCL 0.4 MG/ML INJ IVP PRN (13:52)
--- NOTE | 2018-08-03 13:53 | POSTANESTH ---
Post Anesthetic Evaluation Cardiovascular Status: Normal, Stable Respiratory Status: Normal, Stable Level of Consciousness/Mental Status: Can Participate in Eval Pain Control: Adequate, Prn Tx Ordered Nausea/Vomiting Control: Adequate, Prn Tx Ordered Complications Possibly Related to Anesthesia: None Noted
[2018-08-03] MEDS ORDERED: ZOLPIDEM TARTRATE 5 MG TAB PO PRN (14:16)
--- NOTE | 2018-08-03 14:28 | EPPROC ---
Electrophysiology Procedure Note: PROCEDURE PERFORMED: 1. Implantation of an A BiV Pacemaker 2. Subclavian vein angiography 3. Fluoroscopy INDICATION: CHF QRS duration >120 ms Sinus bradycardia with need for A pacing to tolerate beta chichi [place] interval >250 ms PROCEDURE NOTE: Patient presented to the cardiac catherization laboratory in a fasting, postabsorptive state. Dr. Page administered anesthesia. The L infraclavicular area was prepped and draped in the usual sterile fashion. Lidocaine plus bupivacaine was used for local anesthesia. L subclavian venography was performed by injection of iodinated contrast into the left antecubital vein. This was done to assure patency of the vein and also to assess for any anatomical aberrations. Using a combination of blunt and sharp dissection and electrocautery, the dissection was carried down to the prepectoral fascia. A pocket was made in this anatomical plane. All bleeding was controlled with electrocautery. The pocket was packed with gauze soaked in antibiotic solution. Fluoroscopy was utilized during the entire procedure for venous access and placement of the leads. Using a direct stick technique the L extra thoracic axillary vein was accessed with 3 sticks using the modified Seldinger technique. Placement of the guide wires into the venous system was confirmed by low pressure blood return and also by visualizing the guide wires advancing into the inferior vena cava. A purse string suture was applied around the guide wires. Two #6 [place] sheaths were advanced under fluoroscopic guidance over the guide wires. An active fixation ventricular lead was advanced into the right ventricular apex and screwed in place. An active fixation atrial lead was advanced into the right atrial appendage and screwed in place. The peel away sheaths were removed. Pacing thresholds, sensing parameters and lead impedances were measured. There was no diaphragmatic stimulation at maximum output. The leads were sutured to the prepectoral fascia with 3 nonabsorbable sutures. A 9 [place] sheath was advanced over the guidewire into the subclavian vein. Using a [employer] delivery system the coronary sinus ostium was engaged. Occlusion retrograde coronary sinus angiography was performed in 1 view due to renal insufficiency. A coronary sinus quadrapolar lead was advanced into the coronary sinus. An angioplasty wire was advanced through the lead and advanced distally into the lateral branch of the coronary sinus. The lead was advanced over the angioplasty wire. Pacing threshold, sensing and impedance was determined. There was diaphragmatic stimulation at maximum output from distal but not proximal electrodes. The delivery system and the 9 Fr sheath were peeled away. Again, pacing threshold, sensing and impedance was determined. The lead advanced distally with sheath removal and needed to be pulled back post Lianna sheath removal. The CS lead was secured to the prepectoral fascia with 3 nonabsorbable sutures. Pacing threshold and sensing parameters of the RA, RV and LV leads were checked again. The gauze packing was removed from the pacemaker pocket. The pocket was again inspected for any bleeding. The lead was attached to the pacemaker securely. The pacemaker was inserted into the pocket and secured in place with a nonabsorbable suture. Fluoroscopy was performed in HERN[place]NDEZ and LOREN planes to verify right sided placement of the lead. Also fluoroscopy of the pacemaker pocket was performed. The pacemaker pocket was closed in 3 layers with absorbable monocryl sutures and richard. Appropriate dressing was applied. The patient left the cardiac catheterization laboratory in stable condition. Serial Numbers: 1. Device [facility] Quadra Allure [id number] MENTAL HEALTH DIRECTOR-P SN [id number] 2. Atrial Lead SJM Tendril 46 2088 TC [id number] 3. Right Ventricular Lead SJM Tendril 52 2088TC [id number] 4. Left Ventricular Lead SJM Quartet 1457 75 SN [id number] Stimulation Thresholds & Impedance Measurements: 1. Atrial Lead 0.5 V 0.4 ms P 3.7 mV 525 ohm 2. Right Ventricular Lead 0.8 V 0.4 ms R 7.3 mV 499 ohm 3. Left Ventricular Lead 1.1 V 0.4 ms 25.9 mV 853 ohm Jeyson Pacing Parameters: 1. Pacing mode DDDR 2. Lower rate70 ppm 3. Upper [id number] ppm Patient Problems: Problems Problem Status Onset Fatigue Acute Cardiomyopathy Acute Acute exacerbation of CHF (congestive heart failure) Acute Hyponatremia Acute Chronic Disease Mgmt/Transitional Care Acute Lumbar stenosis Acute Near syncope Acute Atrial fibrillation with RVR Acute Hyperkalemia Acute Congestive cardiac failure Acute Dyspnea Acute New onset atrial fibrillation Acute Shortness of breath Acute Fatigue Acute Cardiomegaly Acute Elevated troponin Acute
[2018-08-03] MEDS: CLOPIDOGREL BISULFATE 75 MG TAB PO SCH (14:52)
[2018-08-03] MEDS ORDERED: HYDROCODONE/APAP 5/325 TAB PO PRN (15:22)
[2018-08-03] MEDS ORDERED: METOPROLOL SUCCINATE XR 25 MG TAB PO SCH (21:00)
[2018-08-04 04:33] LABS: PLATELET COUNT 142 10^3/uL (150-400)
[2018-08-04] MEDS ORDERED: LEVOTHYROXINE 200 MCG TAB PO SCH (06:00)
[2018-08-04 08:07] VITALS: BP 102/63
[2018-08-04] MEDS ORDERED: EPLERENONE 25 MG TAB PO SCH (09:00)
[2018-08-04] MEDS ORDERED: LOSARTAN POTASSIUM 25 MG TAB PO SCH (09:00)
[2018-08-04] MEDS ORDERED: CHOLECALCIFEROL VIT D3 1,000 UNITS TAB PO SCH (09:00)
[2018-08-04] MEDS ORDERED: ROSUVASTATIN CALCIUM 10 MG TAB PO SCH (09:00)
[2018-08-04] MEDS ORDERED: CLOPIDOGREL BISULFATE 75 MG TAB PO SCH (09:00)
[2018-08-04] MEDS ORDERED: BUMETANIDE 1 MG TAB PO SCH (09:00)
[2018-08-04] MEDS ORDERED: OMEGA-3 FATTY ACIDS 1,000 MG CAP PO SCH (09:00)
[2018-08-04] MEDS: CLOPIDOGREL BISULFATE 75 MG TAB PO SCH (09:22)
--- NOTE | 2018-08-04 11:52 | GDS ---
[f rep st] DISCHARGE SUMMARY SUPERVISING TRANSPORTATION SERVICES REPRESENTATIVE: Nahid Perez MD. ADMISSION DIAGNOSES: 1. Congestive heart failure. 2. QRS duration greater than 120 milliseconds. 3. Sinus bradycardia with need for atrial pacing to tolerate beta chichi. 4. [place] intervals greater than 250 milliseconds. DISCHARGE DIAGNOSIS: Status post implant of a biventricular permanent pacemaker. PROCEDURES PERFORMED DURING HOSPITALIZATION: 1. Electrocardiogram. 2. Chest x-ray. 3. Implantation of a biventricular permanent pacemaker. 4. Subclavian vein angiography. 5. Fluoroscopy. HOSPITAL COURSE: Patient presented 08/03/2018 for implant of a biventricular permanent pacemaker in the setting of increasingly symptomatic cardiomyopathy and congestive heart failure with QRS duration greater than 120 msec and need for atrial pacing to tolerate beta chichi. He underwent successful implantation of a biventricular permanent pacemaker with Dr. Nahid Perez without any intraprocedure complications. He has done very well in the postprocedure setting and has been ambulating around his room this morning without issue. He is appropriate and stable for discharge home today. CURRENT PHYSICAL EXAMINATION: GENERAL: Alert and oriented x4. No apparent distress. VITAL SIGNS: Blood pressure 102/63, heart rate 76, respiratory rate 14, SpO2 of 93% on room air, temp 36.3 degrees Celsius. RESPIRATORY: Lungs are clear to auscultation without adventitious breath sounds. CARDIAC: Normal S1, S2. No S3, S4. Rhythm is regular. ABDOMEN: Normoactive bowel sounds times all 4 quadrants, no masses or tenderness. Soft to palpation. SKIN: [place] , warm, dry without cyanosis, clubbing, or peripheral edema. Left pectoral incision has a clean and dry dressing in place without any evidence of hematoma or oozing from this site. EXTREMITIES: Pulses 2+ bilaterally. No upper or lower extremity edema. LABORATORY STUDIES: Drawn today. CBC and BMP are relatively stable compared to preprocedure. PROCEDURES: Implantation of a biventricular permanent pacemaker as mentioned above. Device interrogation this morning demonstrates stable thresholds, impedance, and sensing. Chest x-ray this morning demonstrates stable lead placement. DISCHARGE DISPOSITION: The patient will be discharged home in stable conditions. He is under activity restrictions as below. DISCHARGE MEDICATIONS: Please see discharge medication reconciliation sheet for full details. Please note, the patient may restart his Eliquis 48 hours post procedure. DISCHARGE INSTRUCTIONS: Post-pacemaker instructions are reviewed with the patient and his in detail. 1. He will avoid lifting his left arm above the level of the shoulder, putting his hand behind his back, pulling, pushing, or lifting more than 5 pounds for the next 4 weeks. He will avoid strenuous upper body activity for 6 weeks. 2. He will wear a sling at night for 4 weeks[address] He may drive after 48 hours. 4. He will keep his incision clean and dry. If his dressing becomes saturated for any reason, he will remove his dressing and leave it open to air. 5. His richard will be removed at his 1-week followup in our device clinic. 6. The patient may restart Eliquis 48 hours post procedure. He will continue all other medications as directed. The patient and verbalized understanding regarding all discharge instructions without questions or concerns. He has a followup visit scheduled with our device clinic in [address] Perez within 1 month. He will contact [facility] with any new or concerning symptoms prior to his upcoming visit. Time spent on discharge greater than 30 minutes. /[id number]/MODL MTDD
--- NOTE | 2018-08-06 09:03 | CPEKG ---
Test Reason : OPEN Blood Pressure : / mmHG Vent. Rate : 059 BPM Atrial Rate : 059 BPM P-R Int : 257 ms QRS Dur : 120 ms QT Int : 466 ms P-R-T Axes : 046 -56 100 degrees QTc Int : 462 ms Sinus rhythm Prolonged NV interval Incomplete left bundle branch block Inferior infarct, old Consider anterior infarct Confirmed by Allen Charlton ([id number]) on 08/06/2018 9:03:41 AM Referred By: Nahid Perez Confirmed By:Allen Charlton
--- NOTE | 2018-08-06 09:17 | CPEKG ---
Test Reason : OPEN Blood Pressure : / mmHG Vent. Rate : 070 BPM Atrial Rate : 070 BPM P-R Int : 188 ms QRS Dur : 179 ms QT Int : 506 ms P-R-T Axes : 044 197 002 degrees QTc Int : 547 ms Atrial-ventricular dual-paced rhythm Pacing is new in comparison to prior Confirmed by Allen Charlton ([id number]) on 08/06/2018 9:17:07 AM Referred By: Nahid Perez Confirmed By:Allen Charlton
--- NOTE | 2018-08-06 09:47 | CPEKG ---
Test Reason : OPEN Blood Pressure : / mmHG Vent. Rate : 079 BPM Atrial Rate : 079 BPM P-R Int : 160 ms QRS Dur : 172 ms QT Int : 496 ms P-R-T Axes : 098 228 062 degrees QTc Int : 569 ms Atrial-ventricular dual-paced rhythm Confirmed by Allen Charlton ([id number]) on 08/06/2018 9:47:35 AM Referred By: Nahid Perez Confirmed By:Allen Charlton
== END 2018-08-04 12:17 | disposition home or self-care (01) ==
LOC: FCATH 10:42 → F2W 13:55
PROVIDERS: ADMIT Internal Medicine Cardiovascular Disease; ATTEND Internal Medicine Cardiovascular Disease
PROC: 02HK3JZ Insertion of Pacemaker Lead into Right Ventricle, Percutaneous Approach (ICD-10-PCS; principal; 2018-08-03)
PROC: 0JH60XZ Insertion of Tunneled Vascular Access Device into Chest Subcutaneous Tissue and Fascia, Open Approach (ICD-10-PCS; principal; 2018-08-03)
PROC: 02H63JZ Insertion of Pacemaker Lead into Right Atrium, Percutaneous Approach (ICD-10-PCS; principal; 2018-08-03)
PROC: 02H60JZ Insertion of Pacemaker Lead into Right Atrium, Open Approach (ICD-10-PCS; principal; 2018-08-03)
PROC: 02HL3JZ Insertion of Pacemaker Lead into Left Ventricle, Percutaneous Approach (ICD-10-PCS; principal; 2018-08-03)
DX: I25.5 Ischemic cardiomyopathy (principal); I11.0 Hypertensive heart disease with heart failure; I50.9 Heart failure, unspecified; I48.91 Unspecified atrial fibrillation; I25.10 Atherosclerotic heart disease of native coronary artery without angina pectoris; I08.1 Rheumatic disorders of both mitral and tricuspid valves; I71.2 Thoracic aortic aneurysm, without rupture; Z79.01 Long term (current) use of anticoagulants; Z95.5 Presence of coronary angioplasty implant and graft; Z95.1 Presence of aortocoronary bypass graft; Z87.891 Personal history of nicotine dependence
CPT/HCPCS: 33208; 33225; 71045; 71046; 93005; C1769; C1898; C1900; C2621; G0378; J0690; J2370; J2405; J3010; Q9967

== ENCOUNTER 2018-09-21 07:56 | Day surgery (SDC) | payer OTHER ==
[2018-09-21] MEDS ORDERED: fentaNYL 100 MCG/2 ML INJ IVP ONE (07:58)
[2018-09-21] MEDS ORDERED: MIDAZOLAM 2 MG/2 ML VIAL IVP ONE (07:58)
[2018-09-21] MEDS ORDERED: ATROPINE SULFATE 1 MG/10 ML SYR IVP ONE (07:58)
[2018-09-21] MEDS ORDERED: NS 500 ML IV ONE (07:58)
--- NOTE | 2018-09-21 08:45 | PDGENHP ---
History & Physical Chief Complaint: Persistent atrial fibrillation History of Present Illness: Persistent atrial fibrillation, cardiomyopathy Relevant Physical Exam: A&Ox4, irregularly irregular rate and rhythm, S1, S2 Cardiorespiratory Assessment: Proceed with cardioversion as planned for today. Pre-loaded with Amiodarone
[2018-09-21 08:46] LABS: INR 1.39 (0.83-1.16); PROTIME(PATIENT) 16.5 SEC (12.0-15.0)
--- NOTE | 2018-09-21 09:24 | PDANEPAE ---
ANE Past Medical History - Cardiovascular History Hx Hypertension: No Hx Arrhythmias: Yes Hx Chest Pain: No Hx Coronary Artery / Peripheral Vascular Disease: Yes Hx CHF / Valvular Disease: Yes Hx Palpitations: Yes Cardiovascular History Comment: CABG X 3 -2012. A fib. CHF-EF 39% - Pulmonary History Hx COPD: No Hx Asthma/Reactive Airway Disease: No Hx Recent Upper Respiratory Infection: No Hx Oxygen in Use at Home: Yes Hx Sleep Apnea: Yes Pulmonary History Comment: ALISIA- MILD, MOUTH APPLIANCE. ASTHMA- EXERCISE INDUCED - Neurologic History Hx Cerebrovascular Accident: No Hx Seizures: No Hx Dementia: No Neurologic History Comment: NUMBNESS LEGS TO FEET. SOME FINGER NUMBNESS - Endocrine History Hx Diabetes: No Hypothyroid: Yes Hyperthyroid: No Obesity: no Endocrine History Comment: LOW TRHYROID - Renal History Hx Renal Disorders: Yes Renal History Comment: Cr 1.4. hx of hyponatremia, currently Na 137 - Liver History Hx Hepatic Disorders: No - Neurological & Psychiatric Hx Hx Neurological and Psychiatric Disorders: Yes Neurological / Psychiatric History Comment: insomnia - Cancer History Hx Cancer: No - Congenital Disorder History Hx Congenital Disorders: No - GI History Hx Gastrointestinal Disorders: No - Other Health History Other Health History: PSORIASIS - Chronic Pain History Chronic Pain: No - Surgical History Prior Surgeries: HAS HAD 24 SURG. FUSION T10-S1. CABG X3 VESSEL 12/2012. NECK SURG R HAND SURG. R TKA LAST FUSION 03/2014 ANE Review of Systems Review of Systems: - Exercise capacity METS (RN): 4 METS - Pacemaker Date Pacemaker Last Checked: 08/03/2018 ANE Patient History - Allergies Allergies/Adverse Reactions: levofloxacin [From Levaquin] Allergy (Severe, Verified 07/24/18 09:59) Other-Enter Comments Quinolones Allergy (Verified 07/24/18 09:59) Other-Enter Comments - Home Medications Home Medications: Zolpidem Tartrate [Ambien 5MG (*)] 2.5 mg PO HS PRN 06/24/16 [Last Taken 21:00] Cholecalciferol Vit D3 [Vitamin D3 (*)] 1,000 units PO DAILY 09/14/17 [Last Taken 09/20/18] Clopidogrel Bisulfate [Plavix] 75 mg PO DAILY 09/14/17 [Last Taken 09/20/18] Levothyroxine Sodium [Levoxyl] 200 mcg PO DAILY06 09/14/17 [Last Taken 09/20/18] [place]-3 Fatty Acids [Fish Oil 1000 mg (*)] 1,000 mg PO DAILY 09/14/17 [Last Taken Unknown] Bumetanide [Bumex (*)] 1 mg PO Q2D 07/24/18 [Last Taken 09/20/18] Eplerenone [Inspra 25 MG (*)] 25 mg PO DAILY 07/24/18 [Last Taken 09/20/18] Metoprolol Succinate Xr [Toprol Xl 25 mg (*)] 12.5 mg PO HS 07/24/18 [Last Taken 09/20/18] Rosuvastatin Calcium [Crestor] 5 mg PO DAILY 07/24/18 [Last Taken 09/20/18] Testosterone IM [Testosterone 100mg/ml IM inj (*)] 0 mg IM Q21D 07/24/18 [Last Taken 07/13/18] Amiodarone HCl 200 mg PO DAILY 09/21/18 [Last Taken 09/20/18] Diltiazem PO DAILY 09/21/18 [Last Taken 09/20/18] - Anes Hx Anes Hx: no prior problems Hx Anesthesia Complications (with details): Difficult intubation noted about 4 years ago, requiring FO scope - Smoking Hx Smoking Status: Former smoker - Alcohol Use Alcohol Use: Other (1 drink/day) - Family Anes Hx Family Anes Hx: none Family Hx Anesthesia Complications: NONE ANE Labs/Vital Signs - Labs Result Diagrams: 09/21/18 08:20 - Vital Signs Height: 173 cm Weight: 73.9 kg ANE Physical Exam - Airway Neck exam: decreased ROM Mallampati Score: Class 3 Mouth exam: normal dental/mouth exam - Pulmonary Pulmonary: clear to auscultation ANE Anesthesia Plan Anesthesia Plan: GA with mask
[2018-09-21] MEDS ORDERED: PROPOFOL 200 MG/20 ML VIAL ONE (10:22)
--- NOTE | 2018-09-21 11:15 | PDCARD ---
Cardioversion Procedure Procedure: electrical cardioversion Indications: other (AT vs AFL, atrial ATP unsuccessful, ATP changed his rhythm to AFIB) Consent: signed and in chart Anticoagulation: [place] Procedural Details: Pads were placed in anterior-posterior position. Synchronized cardioversion attempt #1: [id number] Results: normal sinus rhythm Conclusions: successful cardioversion Patient Problems: Problems Problem Status Onset Acute exacerbation of CHF (congestive heart failure) Acute Atrial fibrillation with RVR Acute Cardiomegaly Acute Cardiomyopathy Acute Chronic Disease Mgmt/Transitional Care Acute Congestive cardiac failure Acute Dyspnea Acute Elevated troponin Acute Fatigue Acute Fatigue Acute Hyperkalemia Acute Hyponatremia Acute Lumbar stenosis Acute Near syncope Acute New onset atrial fibrillation Acute Shortness of breath Acute
--- NOTE | 2018-09-21 11:37 | POSTANESTH ---
Post Anesthetic Evaluation Cardiovascular Status: Similar to Pre-Op Cond Respiratory Status: Normal, Stable Level of Consciousness/Mental Status: Can Participate in Eval Pain Control: Adequate, Prn Tx Ordered Nausea/Vomiting Control: Adequate, Prn Tx Ordered Complications Possibly Related to Anesthesia: None Noted
--- NOTE | 2018-09-22 13:13 | CPEKG ---
Test Reason : OPEN Blood Pressure : / mmHG Vent. Rate : 071 BPM Atrial Rate : 246 BPM P-R Int : 210 ms QRS Dur : 169 ms QT Int : 491 ms P-R-T Axes : 000 229 066 degrees QTc Int : 534 ms Afib/flutter and ventricular-paced rhythm Confirmed by Nahid Perez ([id number]) on 09/22/2018 1:12:37 PM Referred By: Nahid Perez Confirmed By:Nahid Perez
--- NOTE | 2018-09-22 13:14 | CPEKG ---
Test Reason : OPEN Blood Pressure : / mmHG Vent. Rate : 072 BPM Atrial Rate : 072 BPM P-R Int : 166 ms QRS Dur : 171 ms QT Int : 524 ms P-R-T Axes : 104 219 067 degrees QTc Int : 574 ms Atrial-ventricular dual-paced rhythm Confirmed by Nahid Perez ([id number]) on 09/22/2018 1:14:30 PM Referred By: Nahid Perez Confirmed By:Nahid Perez
== END 2018-09-21 12:57 | disposition home or self-care (01) ==
LOC: FCATH 07:56
PROVIDERS: ATTEND Internal Medicine Cardiovascular Disease
PROC: 5A2204Z Restoration of Cardiac Rhythm, Single (ICD-10-PCS; principal; 2018-09-21)
DX: I48.1 Persistent atrial fibrillation (principal); Z79.01 Long term (current) use of anticoagulants; Z95.0 Presence of cardiac pacemaker; I25.10 Atherosclerotic heart disease of native coronary artery without angina pectoris; Z95.1 Presence of aortocoronary bypass graft; I25.5 Ischemic cardiomyopathy; I50.22 Chronic systolic (congestive) heart failure; E03.9 Hypothyroidism, unspecified; Z98.1 Arthrodesis status; Z96.651 Presence of right artificial knee joint; Z87.891 Personal history of nicotine dependence
CPT/HCPCS: J0461; J2704

== ENCOUNTER 2018-10-28 13:31 | Emergency (ER) | payer OTHER | END 2018-10-28 16:02 | disposition home or self-care (01) ==